=== PATIENT | female | born 1945 | race Caucasian/White ===

== ENCOUNTER 2021-07-21 07:53 | Outpatient (REF) | payer MEDICARE, SELFPAY ==
--- NOTE | ~2021-07-21 | US_ITS ---
EXAMINATION: US ABDOMEN COMPLETE CLINICAL INFORMATION: Biliary cirrhosis. COMPARISON: Ultrasound abdomen 12/22/2017 and 01/11/2015. Ultrasound abdomen from 07/18/2013 as well as multiple other older exams also available. TECHNIQUE: Real-time imaging of the abdominal viscera. FINDINGS: PANCREAS: Normal. ABDOMINAL AORTA: Atherosclerotic changes present in the aorta. INFERIOR VENA CAVA: Visualized portions are normal. LIVER: The liver is normal in size. The liver contour is normal. Parenchymal echogenicity is mildly increased suggesting underlying liver disease, similar to that noted previously. In the right lobe of the liver, there is an echogenic 3.9 x 4.2 x 4.8 cm liver mass which has increased in size since 2012 when it measured 1.2 cm and in 2014 when it measured 1.5 cm and in 2017 when it measured 2.0 cm. This is most likely a cavernous hemangioma, but this could be proven with abdominal MRI. Given its size, a tagged red cell nuclear study would also be of value. There is no intrahepatic biliary duct dilatation seen. GALLBLADDER: The gallbladder is physiologically distended. Multiple mobile gallstones are present. No evidence of gallbladder wall thickening or pericholecystic fluid. COMMON BILE DUCT: Normal in caliber measuring 0.4 cm in diameter. RIGHT KIDNEY: Normal. No hydronephrosis. No renal calculi or focal parenchymal lesions. The kidney measures 10.9 cm in maximum dimension. LEFT KIDNEY: Normal. No hydronephrosis. No renal calculi or focal parenchymal lesions. The kidney measures 9.7 cm in maximum dimension. SPLEEN: Splenic calcifications seen previously are not seen on the current study where the spleen is unremarkable. The spleen measures 8.2 cm in maximum dimension. FREE FLUID: None. US/US abdomen complete IMPRESSION: Echogenic mass in the right lobe of the liver has increased in size from 1.5 cm in 2014 to 4.8 cm on the current study. Although this may be a cavernous hemangioma, this could be proven with abdominal MRI or tagged red cell study as described above.
[2021-07-21 08:47] LABS: MANUAL DIFF FLAG NO
[2021-07-21 09:01] LABS: Basophils Percent Auto 0.9 % (0-2); Eosinophils Absolute Auto 0.2 X10*3/uL (0.0-0.4); Eosinophils Percent Auto 3.6 % (0-4); Hematocrit 40.5 % (37.0-47.0); Hemoglobin 13.7 g/dl (12.0-16.0); Imm Gran Abs Auto 0.01 X10*3/uL (0.00-0.03); Imm Gran Pct Auto 0.2 % (0.0-0.4); Lymphocytes Absolute Auto 1.2 X10*3/uL (1.2-4.9); Lymphocytes Percent Auto 27.1 % (20-40); Mean Corpuscular HGB Conc 33.8 g/dl (31.0-35.0); Mean Corpuscular Hemoglobin 32.3 pg (27.0-33.0); Mean Corpuscular Volume 95.5 fL (80.0-98.0); Monocytes Absolute Auto 0.7 X10*3/uL (0.1-1.2); Monocytes Percent Auto 14.7 % (2-11); Neutrophils Absolute Auto 2.4 x10*3/uL (2.0-8.3); Neutrophils Percent Auto 53.5 % (45-73); Platelet Count 235 X10*3/uL (160-400); Red Blood Count 4.24 X10*6/uL (4.20-5.50); Red Cell Distribution Width 12.7 % (11.0-16.0); White Blood Count 4.5 X10*3/uL (4.8-10.8)
[2021-07-21 09:26] LABS: Alanine Aminotransferase 29 U/L (0-31); Albumin Level 4.1 g/dL (3.5-5.0); Alkaline Phosphatase 132 U/L (39-117); Anion Gap 13 (12-20); Aspartate Amino Transferase 27 U/L (5-31); Bilirubin Direct 0.3 mg/dL (0.0-0.5); Blood Urea Nitrogen 7 mg/dL (9-16); Calcium 9.3 mg/dL (8.4-10.2); Carbon Dioxide 26 mmol/L (22-29); Chloride 101 mmol/L (96-108); Estimated Glomerular Filt Rate > 60; Glucose Random 94 mg/dL (60-115); Potassium 5.2 mmol/L (3.3-5.1); Sodium 135 mmol/L (135-145); Total Protein 6.7 g/dL (6.5-8.0)
[2021-07-21 09:30] LABS: Prothrombin Time 11.5 SEC (9.9-13.0)
== END 2021-07-21 07:54 | disposition home or self-care (01) ==
LOC: HO.US 07:53
PROVIDERS: PCP Nurse Practitioner Adult Health; Visit Provider Internal Medicine Gastroenterology
DX: K74.3 Primary biliary cirrhosis (principal)
CPT/HCPCS: 36415; 76700; 80053; 82248; 85025; 85610

== ENCOUNTER 2021-07-25 10:53 | Outpatient (REF) | payer MEDICARE, SELFPAY ==
--- NOTE | ~2021-07-25 | MR_ITS ---
EXAMINATION: MR ABDOMEN WITHOUT AND WITH CONTRAST CLINICAL INFORMATION: Abnormal ultrasound of the liver. Unchanged. Hemangioma in the right lobe increased from 2014 COMPARISON: 07/21/2021 and earlier TECHNIQUE: MR abdomen was performed without and with use of 6 mL intravenous Gadavist gadolinium contrast. Postcontrast images are performed in multiphase dynamic sequences. Imaging was performed in 3 planes. FINDINGS: LUNG BASES: The visualized lung bases are unremarkable. LIVER, GALLBLADDER, AND BILIARY TREE: Liver is normal in size with a smooth contour. There is patchy heterogeneous signal loss on opposed phase gradient echo T1-weighted images consistent with mild to moderate hepatic steatosis. This likely accounts for the larger area of altered echogenicity seen on prior ultrasound. There are 2 homogeneous well-circumscribed T2 bright nonenhancing hepatic cysts, a 7 mm cyst in the right lobe at the dome and a 5 mm cyst at the junction of the left and right lobes of the liver near the dome. Lastly, along the medial aspect of segment 7 there is a well-circumscribed 1.3 cm hyperintense T2, initially nonenhancing hemangioma with progressive arterial phase enhancement. There are gallstones in the fundus of the gallbladder. No gallbladder wall thickening or pericholecystic fluid. PANCREAS: Unremarkable. SPLEEN: Normal. ADRENAL GLANDS: Normal. KIDNEYS AND URETERS: The kidneys are normal in size, shape, and enhance symmetrically. No hydronephrosis. No perinephric stranding. GASTROINTESTINAL TRACT: No bowel obstruction. No ascites or fluid collection. ABDOMINAL WALL: No significant hernia is appreciated. LYMPH NODES: No lymphadenopathy. VASCULAR: Normal caliber aorta. Portal veins enhance normally. OSSEOUS STRUCTURES: Marrow signal normal. MR/MR abdomen wo/w con IMPRESSION: No suspicious or concerning liver lesion is seen. There is patchy heterogeneous mild to moderate hepatic steatosis which likely accounts for the altered echogenicity seen on prior ultrasound. In addition, there is a 1.3 cm hemangioma along the medial aspect of segment 7 and 2 subcentimeter simple hepatic cysts. No imaging follow-up recommended for the hemangioma or cysts.
== END 2021-07-25 10:54 | disposition home or self-care (01) ==
LOC: HO.MRI 10:53
PROVIDERS: PCP Nurse Practitioner Adult Health; Visit Provider Internal Medicine Gastroenterology
DX: R93.2 Abnormal findings on diagnostic imaging of liver and biliary tract (principal)
CPT/HCPCS: 74183; A9585

== ENCOUNTER 2023-02-03 09:48 | Outpatient (REF) | payer MEDICARE, SELFPAY ==
[2023-02-03 10:57] LABS: Hematocrit 41.4 % (37.0-47.0); Hemoglobin 14.2 g/dl (12.0-16.0); Mean Corpuscular HGB Conc 34.3 g/dl (31.0-35.0); Mean Corpuscular Hemoglobin 33.6 pg (27.0-33.0); Mean Corpuscular Volume 97.9 fL (80.0-98.0); Mean Platelet Volume 9.4 fL (9.4-12.3); NRBC Pct Auto 0.4 /100WBC (0.0-0.2); Platelet Count 203 X10*3/uL (160-400); Red Blood Count 4.23 X10*6/uL (4.20-5.50); Red Cell Distribution Width 12.6 % (11.0-16.0); White Blood Count 4.6 X10*3/uL (4.8-10.8)
[2023-02-03 11:14] LABS: INTERNATIONAL NORM RATIO 0.9 (0.9-1.1); Prothrombin Time 10.4 SEC (10.0-13.1)
[2023-02-03 12:04] LABS: Alanine Aminotransferase 31 U/L (0-31); Albumin Level 3.7 g/dL (3.5-5.0); Alkaline Phosphatase 126 U/L (39-117); Aspartate Amino Transferase 37 U/L (5-31); Bilirubin Direct 0.5 mg/dL (0.0-0.5); Bilirubin Total 1.6 mg/dL (0.0-1.0); Total Protein 6.5 g/dL (6.5-8.0)
[2023-02-03 12:22] LABS: TSH reflex Free T4 0.75 uIU/mL (0.32-4.0)
== END 2023-02-03 09:49 | disposition home or self-care (01) ==
LOC: HO.10HDL 09:48
PROVIDERS: Visit Provider Internal Medicine Gastroenterology
DX: K74.3 Primary biliary cirrhosis (principal); R53.83 Other fatigue
CPT/HCPCS: 36415; 80076; 84443; 85027; 85610

== ENCOUNTER 2023-02-17 08:11 | Outpatient (REF) | payer MEDICARE, SELFPAY ==
--- NOTE | ~2023-02-17 | US_ITS ---
EXAMINATION: US ABDOMEN COMPLETE CLINICAL INFORMATION: Primary biliary cirrhosis. COMPARISON: MRI abdomen 07/25/2021. Ultrasound abdomen complete 07/21/2021 and 12/22/2017. TECHNIQUE: Real-time imaging of the abdominal viscera. Technically limited study secondary to bowel gas and rib shadow. FINDINGS: PANCREAS: Limited visualization. ABDOMINAL AORTA: Limited visualization. Imaged portions of mid and distal abdominal aorta are nonaneurysmal. INFERIOR VENA CAVA: Visualized portions are normal. LIVER: Diffuse increase in echogenicity of the liver is characteristic of primary hepatocellular disease, possibly due to hepatic steatosis and further limits visualization. GALLBLADDER: Multiple gallstones. Gallbladder wall thickening of 3 mm. COMMON BILE DUCT: Limited visualization. The structure felt to possibly represent the common bile duct measures 0.3 cm in diameter. RIGHT KIDNEY: No hydronephrosis. No renal calculi. Renal cortical thickness is normal. Limited visualization. The kidney measures 9.8 cm in maximum dimension. LEFT KIDNEY: No hydronephrosis. No renal calculi. Renal cortical thickness is normal. Limited visualization. The kidney measures 9.1 cm in maximum dimension. SPLEEN: Normal. The spleen measures 8.6 cm in maximum dimension. FREE FLUID: None. US/US abdomen complete IMPRESSION: 1. Cholelithiasis. 2. Diffuse increase in echogenicity of the liver is characteristic of primary hepatocellular disease, possibly due to hepatic steatosis and further limits visualization. 3. Previously identified right hepatic lesion not visualized today, however, visualization is severely limited. CT scan or MRI should be considered for better visualization.
== END 2023-02-17 08:12 | disposition home or self-care (01) ==
LOC: HO.US 08:11
PROVIDERS: PCP Nurse Practitioner Adult Health; Visit Provider Internal Medicine Gastroenterology
DX: K74.3 Primary biliary cirrhosis (principal)
CPT/HCPCS: 76700

== ENCOUNTER 2025-07-02 06:10 | Outpatient (REF) | payer MEDICARE, SELFPAY ==
--- OUTSIDE RECORDS SUMMARY | 2025-06-27 23:59 | XMS_ITS | Continuity of Care Document ---
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 Name Role Phone Lynette Martinez Primary Care P jose g Encounter [facility] Date(s): 05/28/25 - 06/27/[address] [address]- Encounter Type: Triage Allergies, Adverse Reactions, Alerts Substance Criticality Severity Reaction Reaction Severity Status codeine light headedness Act ana paula Iophen NR 1 Unable to assess criticality Persistent Severe dizziness Active codeine-guaiFEN esin itchy Active 1allergic to IOPHEN-NR Liquid Immunizations Given and Recorded Vaccine Date Status Refusal Reason influenza virus vaccine, inactivated 05/15/25 Give n influenza virus vaccine, inactivated 1 06/15/24 Gi roselyn influenza virus vaccine, inactivated 04/30/22 Timi rded influenza virus vaccine, inactivated 05/19/21 Timi rded influenza virus vaccine, inactivated 06/05/20 Timi rded influenza virus vaccine, inactivated 06/12/11 Give n tetanus-diphtheria toxoids (Td) 2 06/15/24 Given [id number] 12y+ bivalent booster vax 06/12/22 Recorded SARS-CoV-2 mRNA (zyjckhg-yate-erogg) vax 11/25/21 Recorded SARS-CoV-2 (COVID-19) mRNA BNT-162b2 vac 05/12/21 Recorded SARS-CoV-2 (COVID-19) mRNA BNT-162b2 vac 10/19/20 Recorded SARS-CoV-2 (COVID-19) mRNA BNT-162b2 vac 09/28/20 Recorded pneumococcal 23-valent vaccine 3 08/04/12 Given 1Result Comment: [facility]# [id number] 2Result Comment: [facility]# [id number] 3Admin Note: administered by Aleta Medications acetaminophen 325 mg oral tablet 975 mg, By Mouth, Every 8 hours, Refills 0, Maintenance, 08/23/24 8:46:00 AM EST, Partial fill upon patient request if the prescription is for a schedule II opioid drug. Start Date: 08/23/24 Status: Ordered Medication Dispense Status: Completed Total Allowed Fills: 1 Fills Dispensed: 0 dapagliflozin 10 mg oral tablet 1 tablet = 10 mg, By Mouth, Daily, # 90 tablet, 3 Refills, Maintenance, 05/09/25 2:08:00 PM EDT, Tablet, [facility]/pharmacy #[id number], Partial fill upon patient request if the prescription is for a schedule II opioid drug., 168, cm, 04/12/25 10:47:00 EDT, Height, 68.2, kg, 02/23/25 1:20:00 EDT, Dry Weight Start Date: 05/09/25 Stop Date: 09/06/25 Status: Ordered Medication Dispense Status: Completed Quantity: 90.0 Unit: tablet Total Allowed Fills: 4 Fills Dispensed: 0 Eliquis 5 mg oral tablet 1 tablet, By Mouth, 2 times a day, # 60 tablet, 3 Refills, Maintenance, 07/28/24 4:57:00 PM EST, [facility]/pharmacy #[id number], 168, cm, 07/19/24 15:37:00 EST, Height, 67, kg, 07/01/24 12:02:00 EST, Dry Weight Start Date: 07/28/24 Status: Ordered Medication Dispense Status: Completed Quantity: 60.0 Unit: tablet Total Allowed Fills: 4 Fills Dispensed: 0 Lasix 40 mg oral tablet 40 mg, 1, tablet, By Mouth, 2 times a day, Refills 0, Maintenance, 05/13/25 6:56:00 PM EDT, Partial fill upon patient request if the prescription is for a schedule II opioid drug. Start Date: 05/13/25 Status: Ordered Medication Dispense Status: Completed Total Allowed Fills: 1 Fills Dispensed: 0 metoprolol 25 mg oral tablet, extended release 25 mg, 1, tablet, By Mouth, Daily, # 30 tablet, Refills 0, Tot. Refills 0, Maintenance, 06/04/25 4:08:00 PM EDT, Route to Pharmacy Electronically, [facility]/pharmacy #[id number], Partial fill upon patient request if the prescription is for a schedule II opioid drug., 169, cm, 06/04/25 13:04:00 EDT, Height, 66.7, kg, 05/14/25 10:52:00 EDT, Dry Weight Start Date: 06/04/25 Status: Ordered Medication Dispense Status: Completed Quantity: 30.0 Unit: tablet Total Allowed Fills: 1 Fills Dispensed: 0 mirtazapine 15 mg oral tablet 1 tablet = 15 mg, By Mouth, Daily at bedtime, # 90 tablet, 0 Refills, Maintenance, 06/04/25 1:10:00PM EDT, Tablet, [facility]/pharmacy #[id number], Partial fill upon patient request if the prescription is for a schedule II opioid drug., 169, cm, 06/04/25 13:04:00 EDT, Height, 66.7, kg, 05/14/25 10:52:00 EDT, Dry Weight Start Date: 06/04/25 Stop Date: 09/02/25 Status: Ordered Medication Dispense Status: Completed Quantity: 90.0 Unit: tablet Total Allowed Fills: 1 Fills Dispensed: 0 omeprazole 40 mg oral enteric coated capsule 1 capsule = 40 mg, By Mouth, Daily, # 90 capsule, 1 Refills, Maintenance, 04/12/25 11:03:00 AM EDT, Suspension, [facility]/pharmacy #[id number], Partial fill upon patient request if the prescription is for a schedule II opioid drug., 168, cm, 04/12/25 10:47:00 EDT, Height, 68.2, kg, 02/23/25 1:20:00 EDT, Dry Weight Start Date: 04/12/25 Status: Ordered Medication Dispense Status: Completed Quantity: 90.0 Unit: capsule Total Allowed Fills: 2 Fills Dispensed: 0 PreserVision AREDS 2 oral capsule See Instructions, 0 Refills, Maintenance, 05/10/25 10:57:00 AM EDT, Partial fill upon patient request if the prescription is for a schedule II opioid drug. Start Date: 05/10/25 Status: Ordered Medication Dispense Status: Completed Total Allowed Fills: 1 Fills Dispensed: 0 PreserVision AREDS 2 oral capsule 1 capsule, By Mouth, 2 times a day, # 60 capsule, 0 Refills, Maintenance, 06/15/25 11:35:00 PM EDT,Capsule, Partial fill upon patient request if the prescription is for a schedule II opioid drug. Start Date: 06/15/25 Status: Ordered Medication Dispense Status: Completed Quantity: 60.0 Unit: capsule Total Allowed Fills: 1 Fills Dispensed: 0 sertraline 100 mg oral tablet 1 tablet = 100 mg, By Mouth, Daily, # 90 tablet, 1 Refills, Maintenance, 04/23/25 4:56:00 PM EDT, Tablet, [facility]/pharmacy #[id number], Partial fill upon patient request if the prescription is for a schedule II opioid drug., 168, cm, 04/12/25 10:47:00 EDT, Height, 68.2, kg, 02/23/25 1:20:00 EDT, Dry Weight Start Date: 04/23/25 Status: Ordered Medication Dispense Status: Completed Quantity: 90.0 Unit: tablet Total Allowed Fills: 2 Fills Dispensed: 0 spironolactone 25 mg oral tablet 1, tablet, By Mouth, Daily, # 90 tablet, Refills 1, Maintenance, 04/06/25 7:33:00 AM EDT, Route to Pharmacy Electronically, [id number], 168, cm, 04/06/25 0:26:00 EDT, Height, 68.2, kg, 02/23/25 1:20:00 EDT, Dry Weight Start Date: 04/06/25 Status: Ordered Medication Dispense Status: Completed Quantity: 90.0 Unit: tablet Total Allowed Fills: 1 Fills Dispensed: 0 ursodiol 500 mg oral tablet 1 tablet, By Mouth, 2 times a day, 0 Refills, Maintenance, 04/23/14 3:44:27 AM EDT, Tablet Start Date: 04/23/14 Status: Ordered Medication Dispense Status: Completed Total Allowed Fills: 1 Fills Dispensed: 0 Problem List Condition Confirmation Course Effective Dates Status H ealth Status Informant Acute peptic ulcer with hemorrhage but without obstruction Confirmed Active Alzheimer dementia Confirmed Active Pacemaker Confirmed Active Cirrhosis of Liver primary biliary Confirmed Active CHF (congestive heart failure) Confirmed Active Macular degeneration Confirmed Active Depression Confirmed Active Dyspnea Confirmed Active Essential (primary) hypertension Confirmed Active Alcohol abuse Confirmed Active Hyperlipidemia Confirmed Active Hypokalemia Confirmed Active Patient has healthcare proxy 1 Confirmed Active Osteoarthritis of knee Confirmed Active AF (paroxysmal atrial fibrillation) Confirmed Active Pleural effusion Confirmed Active Purpura Confirmed Active SCC (squamous cell carcinoma), face Confirmed Active Left leg swelling Confirmed Active Unintentional weight loss Confirmed Active 1[facility] Social History Social History Type Response Smoking Status Never (less than 100 in lifetime); Tobacco user in household: Yes; Other: In the past ex and mother used to smoke in house.; entered on: 03/15/20 Sexual Orientation Self described orien tation: ; Straight or heterosexual Sex Sex Representation Female (finding) Patient Care team information Care Team Personnel Name: Joan Zambrano RN Position: [facility] RN Member Role: Primary Care Nurse Name: Pilar Marques RN Position: [facility] RN Member Role: Primary Care Nurse Name: Mark Anthony Díaz RN Position: [facility] RN Member Role: Primary Care Nurse Name: Meliza Box RN Position: [facility] RN Member Role: Primary Care Nurse Name: Galindo Jade RN Position: [facility] RN Member Role: Primary Care Nurse Name: Eloise Sadler RN Position: [facility] RN Member Role: Primary Care Nurse Name: Delfino Franz RN Position: [facility] RN Member Role: Primary Care Nurse Name: Nessa Tom RN Position: [facility] RN Member Role: Primary Care Nurse Name: Lili Flores RN Position: [facility] RN Member Role: Primary Care Nurse Name: Gwyn Gallegos RN Position: [facility] RN Member Role: Primary Care Nurse Name: Santa Waller RN Position: [facility] RN Member Role: Primary Care Nurse Name: Yashira Arnold Position: [facility] [place] Product Representative Member Role: Filter Tank Operator Name: Karli Wilson RN Position: [facility] RN Member Role: Primary Care Nurse Name: Gennaro Oliver RN Position: [facility] SN RN Member Role: Primary Care Nurse Name: Chela Kidd RN Position: [facility] RN Member Role: Primary Care Nurse Name: Vivi Gil RN Position: [facility] RN Member Role: Primary Care Nurse Name: Lynette Martinez Position: [facility] PCO Associate Professional Member Role: PCP Address: [address] [place] [address]. [address] [place], [place] [address] Telecom: Name: Dionne Bhatt RN Position: [facility] RN Member Role: Primary Care Nurse Name: Monalisa Ragsdale RN Position: [facility] RN Member Role: Primary Care Nurse Name: Delmy Taveras RN Position: [facility] RN Member Role: Primary Care Nurse Name: Sonja Ng LPN Position: [facility] RN Member Role: Primary Care Nurse Care Team Related Persons Name: PARAS LAKHANI Name: BLUE BRIONES Name: CARIE SCHAEFER Insurance Providers Guarantor name: RODDY LESVIACount includes the [facility] Plan Information #: 1 Payer: [employer] AD[employer] HMO Payer Identifier: TONY Member Number: [id number] Group Number: [id number] Subscriber Identifier: TONY Relationship to Subscriber: self Coverage Type: Medicare HMO Coverage Verification Date: Telecom: NA Address: NA
--- OUTSIDE RECORDS SUMMARY | 2025-06-29 12:00 | XMS_ITS | Continuity of Care Document ---
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 Name Role Phone Lynette Martinez Primary Care Reginaldo araiza [id number] Date(s): 06/15/25 - 06/29/[address] [address]- Encounter Diagnosis Anemia(Final) - 06/15/25 Hypoxia(Final) - 06/22/25 CHF exacerbation(Final) - 06/22/25 Discharge Disposition: A-D/C Home Attending Physician: Greta Jean-Baptiste MD Admitting Physician: Christoph Mendez MD Referring Physician: Not on Staff, Referring MD Encounter Type: Disch IP Allergies, Adverse Reactions, Alerts Substance Criticality Severity Reaction Reaction Severity Status codeine light headedness Act ana paula codeine-guaiFEN esin itchy Active Iophen NR 1 Unable to assess criticality Persistent Severe dizziness Active 1allergic to IOPHEN-NR Liquid Functional Status Functional Status Assessment Assessment Assessment Component Result Effecti ve Date Total Falls Risk Score 18 06/27 Functional Status Assessment Assessment Assessment Component Result Effecti ve Date Total Falls Risk Score 30 06/28 Functional Status Assessment Assessment Assessment Component Result Effecti ve Date Tino scale total score 17 07/10 Functional Status Assessment Assessment Assessment Component Result Effecti ve Date Tino scale total score 17 08/09 Functional Status Assessment Assessment Assessment Component Result Effecti ve Date Total score [AUDIT] 1 06/16/25 Functional Status Assessment Assessment Assessment Component Result Effecti ve Date Unspecifed Functional Status Assessment Skin abnormality typ e (observable entity) Surgical incision 06/28/25 Functional Status Assessment Assessment Assessment Component Result Effecti ve Date Unspecifed Functional Status Assessment Skin abnormality typ e (observable entity) Surgical incision 06/28/25 Functional Status Assessment Assessment Assessment Component Result Effecti ve Date Unspecifed Functional Status Assessment Skin abnormality typ e (observable entity) Erythema 06/28/25 Functional Status Assessment Assessment Assessment Component Result Effecti ve Date Total Falls Risk Score 25 06/28 Functional Status Assessment Assessment Assessment Component Result Effecti ve Date Tino scale total score 17 Immunizations Given and Recorded Vaccine Date Status Refusal Reason influenza virus vaccine, inactivated 05/15/25 Give n influenza virus vaccine, inactivated 1 06/15/24 Gi roselyn influenza virus vaccine, inactivated 04/30/22 Timi rded influenza virus vaccine, inactivated 05/19/21 Timi rded influenza virus vaccine, inactivated 06/05/20 Timi rded influenza virus vaccine, inactivated 06/12/11 Give n tetanus-diphtheria toxoids (Td) 2 06/15/24 Given [id number] 12y+ bivalent booster vax 06/12/22 Recorded SARS-CoV-2 mRNA ([id number]) vax 11/25/21 Recorded SARS-CoV-2 (COVID-19) mRNA BNT-162b2 vac 05/12/21 Recorded SARS-CoV-2 (COVID-19) mRNA BNT-162b2 vac 10/19/20 Recorded SARS-CoV-2 (COVID-19) mRNA BNT-162b2 vac 09/28/20 Recorded pneumococcal 23-valent vaccine 3 08/04/12 Given 1Result Comment: [facility]# [id number] 2Result Comment: [facility]# [id number] 3Admin Note: administered by Aleta Medications acetaminophen 325 mg oral tablet 975 mg, By Mouth, Every 8 hours, Refills 0, Maintenance, 08/23/24 8:46:00 AM EST, Partial fill upon patient request if the prescription is for a schedule II opioid drug. Start Date: 08/23/24 Status: Ordered Medication Dispense Status: Completed Total Allowed Fills: 1 Fills Dispensed: 0 cephalexin monohydrate 500 mg oral capsule = 500 mg, By Mouth, Every 6 hours, for 3 days, # 12 tablet, 0 Refills, Acute 07/02/25 10:30:00 AM EST, 06/29/25 10:30:00 AM EST, Capsule, Partial fill upon patient request if the prescription is for a schedule II opioid drug. Start Date: 06/29/25 Stop Date: 07/02/25 Status: Ordered Medication Dispense Status: Completed Quantity: 12.0 Unit: tablet Total Allowed Fills: 1 Fills Dispensed: 0 dapagliflozin 10 mg oral tablet 1 tablet = 10 mg, By Mouth, Daily, # 90 tablet, 3 Refills, Maintenance, 05/09/25 2:08:00 PM EDT, Tablet, [facility]/pharmacy #[id number], Partial fill upon patient request if [...] 3 Refills, Maintenance, 07/28/24 4:57:00 PM EST, [facility]/pharmacy #[id number], 168, cm, 07/19/24 15:37:00 EST, Height, 67, kg, 07/01/24 12:02:00 EST, Dry Weight Start Date: 07/28/24 Status: Ordered Medication Dispense Status: Completed Quantity: 60.0 Unit: tablet Total Allowed Fills: 4 Fills Dispensed: 0 folic acid 1 mg oral tablet 1 mg, By Mouth, Daily, Refills 0, Maintenance, 06/29/25 10:38:00 AM EST, Partial fill upon patient request if the prescription is for a schedule II opioid drug. Start Date: 06/29/25 Status: Ordered Medication Dispense Status: Completed Total Allowed Fills: 1 Fills Dispensed: 0 metoprolol 25 mg oral tablet, extended release 25 mg, XL Tablet, By Mouth, 06/29/25 9:00:00 AM EST Start Date: 06/29/25 Stop Date: 06/29/25 Status: Completed Medication Dispense Status: Completed Total Allowed Fills: 1 Fills Dispensed: 0 metoprolol 25 mg oral tablet, extended release 25 mg, 1, tablet, By Mouth, Daily, # 30 tablet, Refills 0, Tot. Refills 0, Maintenance, 06/04/25 4:08:00 PM EDT, Route to Pharmacy Electronically, [facility]/pharmacy #[id number], Partial fill upon patient request if [...] 0 Refills, Maintenance, 06/04/25 1:10:00PM EDT, Tablet, [facility]/pharmacy #[id number], Partial fill upon patient request if [...] 1 capsule = 40 mg, By Mouth, 2 times a day, # 60 capsule, 1 Refills, Maintenance, 06/29/25 10:30:00AM EST, Suspension, Partial fill upon patient request if the prescription is for a schedule II opioid drug. Start Date: 06/29/25 Stop Date: 08/28/25 Status: Ordered Medication Dispense Status: Completed Quantity: 60.0 Unit: capsule Total Allowed Fills: 2 Fills [...] Total Allowed Fills: 1 Fills Dispensed: 0 Pyridoxine Tablet 50 mg, By Mouth, Daily, Refills 0, Maintenance, 06/29/25 10:38:00 AM EST, Partial fill upon patientrequest if the prescription is for a schedule II opioid drug. Start Date: 06/29/25 Status: Ordered Medication Dispense Status: Completed Total Allowed Fills: 1 Fills Dispensed: 0 sertraline 100 mg oral tablet 1 tablet = 100 mg, By Mouth, Daily, # 90 tablet, 1 Refills, Maintenance, 04/23/25 4:56:00 PM EDT, Tablet, [facility]/pharmacy #[id number], Partial fill upon patient request if [...] 7:33:00 AM EDT, Route to Pharmacy Electronically, [id number], 168, cm, 04/06/25 0:26:00 EDT, Height, 68.2, kg, 02/23/25 1:20:00 EDT, Dry Weight Start Date: 04/06/25 Status: Ordered Medication Dispense Status: Completed Quantity: 90.0 Unit: tablet Total Allowed Fills: 1 Fills Dispensed: 0 thiamine 100 mg oral tablet 100 mg, By Mouth, 2 times a day, Refills 0, Maintenance, 06/29/25 10:38:00 AM EST, Partial fill upon patient request if the prescription is for a schedule II opioid drug. Start Date: 06/29/25 Status: Ordered Medication Dispense Status: Completed Total Allowed Fills: 1 Fills Dispensed: 0 torsemide 20 mg oral tablet 1 tablet = 20 mg, By Mouth, Daily, 0 Refills, Maintenance, 06/29/25 10:32:00 AM EST, Tablet, Partial fill upon patient request if the prescription is for a schedule II opioid drug. Start Date: 06/29/25 Status: Ordered Medication Dispense Status: Completed Total Allowed Fills: 1 Fills Dispensed: 0 ursodiol 500 mg oral tablet 1 tablet, By Mouth, 2 times a day, 0 Refills, Maintenance, 04/23/14 3:44:27 AM EDT, Tablet Start Date: 04/23/14 Status: Ordered Medication Dispense Status: Completed Total Allowed Fills: 1 Fills Dispensed: 0 Mental Status Mental Status Assessment Assessment Assessment Component Result Effecti ve Date Mylene coma score total 14 Mental Status Assessment Assessment Assessment Component Result Effecti ve Date Mylene coma score total 14 06/17/25 Mental Status Assessment Assessment Assessment Component Result Effecti ve Date Mylene coma score total 14 06/23/25 Problem List Condition Confirmation Course Effective Dates [...] loss Confirmed Active 1[facility] Results Radiology Reports * Exam Date Time Procedure Performing Provider Status 06/23/25 8:04 AM Chest Portable Auth (Veri fied) Notes: (Chest Portable) Reason For Exam: Shortness of Breath RESULT: Chest Portable Chest Portable Reason: Shortness of Breath; Clinical Question(s): Atelectasis COMPARISON: Multiple priors, most recent comparison 06/17/2025. FINDINGS: LINES AND TUBES: Dual-lead left subclavian pacer/AICD wires are intact. LUNGS AND PLEURA: No interval change in LEFT pleural effusion. Decrease in RIGHT pleural effusion. No pneumothorax. Similar bilateral perihilar and diffuse interstitial opacities representing edema. HEART, MEDIASTINUM AND LAURYN: LEFT heart border partially obscured. Normal mediastinal and hilar contour. BONES AND SOFT TISSUES: No acute abnormality. IMPRESSION: Findings consistent with congestive heart failure. Unchanged LEFT pleural effusion, decreased RIGHTpleural effusion. WSN: [id number] Ordering Physician: Christoph Miller Dictated By: Pilar Araujo MD Dictated Date/Time: 06/23/25 10:49 a Reviewed By: Pilar Araujo MD Signed By: Pilar Araujo MD Signed Date/Time: 06/23/25 10:49 am Transcribed By: IWONA Transcribed Date/Time: 06/23/25 10:48 am * Exam Date Time Procedure Performing Provider Status 06/17/25 10:45 AM Chest 2 Views Frontal and Lat Auth (Verified) Notes: (Chest 2 Views Frontal and Lat) Reason For Exam: Shortness of Breath RESULT: Chest 2 Views Frontal and Lat Chest 2 Views Frontal and Lat COMPARISON: 06/15/2025 most recent INDICATION / CLINICAL QUESTION: Reason: Shortness of Breath; Clinical Question(s): Pleural Effusion FINDINGS: LINES AND TUBES: Dual-lead left subclavian pacer/AICD wires are intact. LUNGS AND PLEURA: Slightly increased pleural effusions, left larger than right. Increased interstitial edema pattern. No pneumothorax. HEART, MEDIASTINUM AND LAURYN: Partially obscured but grossly unchanged cardiomegaly. BONES AND SOFT TISSUES: No acute abnormality. IMPRESSION: Increased moderate effusions and interstitial edema consistent with CHF. WSN: [id number] Ordering Physician: Greta Jean-Baptiste Dictated By: Dominguez Vogel MD Dictated Date/Time: 06/17/25 3:37 pm Reviewed By: Dominguez Vogel MD Signed By: Dominguez Vogel MD Signed Date/Time: 06/17/25 3:37 pm Transcribed By: CSB Transcribed Date/Time: 06/17/25 3:35 pm * Exam Date Time Procedure Performing Provider Status 06/15/25 7:[address] Abdomen and Pelvi s W/O Contrast Auth (Verified) Notes: (CT Abdomen and Pelvis W/O Contrast) Reason For Exam: abdominal pain, diarrhea/melena;Other: RESULT: CT Abdomen and Pelvis W/O Contrast CT Abdomen and Pelvis W/O Contrast Reason: Other:; abdominal pain, diarrhea melena; Clinical Question(s): Other:; Order Comment: TECHNIQUE: Spiral CT through the abdomen and pelvis without IV contrast formatted in 3 planes. Thisstudy was performed without oral contrast. Weight- based protocol using automatic tube modulation was used to optimize exposure parameters. CTDIvol Body: 17.30 mGy, DLP Body: 858 mGy*cm. COMPARISON: 07/04/2024 FINDINGS: Clinical Informatics Specialist View Findings, Lines and Tubes: None. Visualized Chest: Bilateral lower lobe atelectasis. Small to moderate bilateral pleural effusions, both mildly increased in size from the previous examination. Dual-lead cardiac pacemaker. Normal cardiac size. No pericardial effusion. Diaphragm: Normal. Liver: Normal. Gallbladder: Cholelithiasis. Bile ducts: No biliary ductal dilation. Spleen: 2 calcified granulomata. Otherwise unremarkable. Pancreas: Normal. Adrenal glands: Normal. Kidneys and ureters: No hydronephrosis, stones, or noncontrast evidence of suspicious masses. Bladder: Normal. Reproductive organs: Calcified uterine fibroids. Adnexal regions are unremarkable. Stomach, small bowel, and large bowel: Normal. Appendix: No evidence of acute appendicitis. Peritoneum and retroperitoneum: No ascites or pneumoperitoneum. No omental or mesenteric lesions. Lymph nodes: No enlarged lymph nodes. Blood vessels: Normal. No aneurysm. Abdominal and pelvic wall: Unremarkable. Bones: Chronic compression fractures of T10 and L1, appearing similar to the radiographs of 03/30/2025. Degenerative changes elsewhere the lower thoracic spine and stable moderate loss of height of the L4-5 intervertebral disc. IMPRESSION: No acute abnormality in the abdomen and pelvis. Cholelithiasis. Multiple calcified uterine fibroids. Stable degenerative changes in the thoracic and lumbar spine with chronic compression fractures of T10 and L1 and diminished height of the L4-5 intervertebral disc. Bibasilar atelectasis. Small to moderate bilateral pleural effusions, increased in size from 07/04/2024. WSN: [id number] Ordering Physician: Ashley Chandler Dictated By: Silas Lopes MD Dictated Date/Time: 06/15/25 9:32 pm Reviewed By: Silas Lopes MD Signed By: Silas Lopes MD Signed Date/Time: 06/15/25 9:32 pm Transcribed By: IWONA Transcribed Date/Time: 06/15/25 9:24 pm * Exam Date Time Procedure Performing Provider Status 06/15/25 12:52 PM Chest 2 Views Frontal and Lat Auth (Verified) Notes: (Chest 2 Views Frontal and Lat) Reason For Exam: Shortness of Breath RESULT: Chest 2 Views Frontal and Lat Chest 2 Views Frontal and Lat Hx of Present Illness: SOB; Reason: Shortness of Breath; Clinical Question(s): CHF COMPARISON: 05/18/2025 FINDINGS: LINES AND TUBES: Stable dual-lead left-sided pacemaker. LUNGS AND PLEURA: Vascular congestion with perihilar infiltrates suggesting pulmonary edema, new from prior exam. Small increased bilateral pleural effusions, left greater than right, with left lung base atelectasis. No pneumothorax. HEART, MEDIASTINUM AND LAURYN: Heart is normal in size. Normal mediastinal and hilar contour. BONES AND SOFT TISSUES: No acute abnormality. Right shoulder arthroplasty. IMPRESSION: CHF. WSN: [id number] Ordering Physician: Dhiraj Rashid Dictated By: Jair Caldwell MD Dictated Date/Time: 06/15/25 1:37 pm Reviewed By: Jair Caldwell MD Signed By: Jair Caldwell MD Signed Date/Time: 06/15/25 1:37 pm Transcribed By: IWONA Transcribed Date/Time: 06/15/25 1:36 pm Vital Signs Most recent to oldest [Reference Range]: 1 2 3 Height 168 cm (06/29/25 1:46 AM) 168 cm (06/28/25 7:28 PM) 168 cm (06/28/25 3:18 PM) Weight 68.3 kg (06/29/25 2:40 AM) 66.6 kg (06/28/25 6:10 AM) 68.0 kg (06/27/25 5:03 AM) Oxygen Saturation [94-100 %] 98 % (06/29/25 7:00 AM) 98 % (06/29/25 1:46 AM) 95 % (06/28/25 7:28 PM) Pulse Rate [55-90 bpm] 68 bpm (06/29/25 8:34 AM) 66 bpm (06/29/25 7:00 AM) 66 bpm (06/29/25 1:46 AM) Body Mass Index [18.5-24.99 kg/m2] 23.88 kg/m2 (06/25/25 1:22 PM) 23.42 kg/m2 (06/22/25 12:35 PM) 23.74 kg/m2 (06/19/25 2:11 AM) Blood Pressure [90-138/55-84 mm Hg] 103/47mm Hg (06/29/25 8:34 AM) 103/47mm Hg (06/29/25 7:00 AM) 109/42mm Hg (06/29/25 1:46 AM) Respiratory Rate [16-30 br/min] 18 br/min (06/29/25 7:00 AM) 18 br/min (06/29/25 1:46 AM) 18 br/min (06/28/25 7:28 PM) Temperature [96.8-100.4 DegF] 98.1 DegF (06/29/25 7:00 AM) 97.6 DegF (06/29/25 1:46 AM) 97.6 DegF (06/28/25 7:28 PM) Liters per Minute 1 L/min (06/29/25 7:00 AM) 1 L/min (06/29/25 1:46 AM) 1 L/min (06/28/25 7:28 PM) Mode of Delivery (Oxygen) Nasal cannula (06/29/25 7:00 AM) Nasal cannula (06/29/25 1:46 AM) Nasal cannula (06/28/25 7:28 PM) Blood pressure sites Arm, right (06/29/25 7:00 AM) Arm, right (06/29/25 1:46 AM) Arm, right (06/28/25 7:28 PM) Temperature Route Oral (06/29/25 7:00 AM) Oral (06/29/25 1:46 AM) Temporal (06/28/25 7:28 PM) Dry Weight 67.4 kg (06/25/25 1:22 PM) 69 kg (06/16/25 1:55 PM) Weight Obtained Via Bed scale (06/29/25 2:40 AM) Bed scale (06/28/25 6:10 AM) Bed scale (06/27/25 5:03 AM) Dry Weight Obtained Via Patient/family stated (06/25/25 1:22 PM) Social History Social History Type Response Smoking Status Never (less than 100 in lifetime); Tobacco user in household: Yes; Other: In the past ex and mother used to smoke in house.; entered on: 03/15/20 Sexual Orientation Self described orien tation: ; Straight or heterosexual Sex Sex Representation Female (finding) Status Not EGD Study * Event Display: GG EGD Please click on pdf link to open report Admission evaluation note * Candida Montes De Oca MD: MODIFY, PERFORM, MODIFY Event Display: Admission Note Authored Date: Patient: ??MARGARITA LAKHANI ? Age:??80 Years?Sex:??Female?:??1945?LOC:??[facility]?? Chief Complaint SOB History of Present Illness HPI: ?? Margarita is an 80-year-old woman with PMH significant for??PAF s/p??prior ablations and PPM,??HTN, diastolic??HF,??HLD, OA, primary biliary sclerosis, liver cirrhosis,??who??presents today for complaints of weakness and lightheadedness. Per daughter, Leah, who is a great historian, patient has b een having 1-2 wks of large volume diarrhea, only recently starting to resolve, but had a 6 large bowel movement this morning that was dark and tarry. Patient was weak and lightheaded and unable to get off the toilet, complaining of weak legs. She then began feeling short of breath later in the day, and was sent to the ED as well after PCP noted labs that visiting nurses have taken showed increased proBNP, weakness, and requirement of O2. Patient was requiring 3L NC on EMS. Denies headache, blurry vision, numbness or tingling, chest pain, abdominal pain. Patient also had recent emergency roomearlier in May for similar symptoms.? On admission to the ED patient had no leukocytosis, was anemic to 7.7, magnesium high at 2.7, alk phos increased to 123 with normal LFTs, total bilirubin high at 1.30, baseline creatinine around 1.01, now slightly increased to 1.13.?? proBNP increased to 9248 from 6779 at beginning of the month.?? Troponin mildly elevated to 25.?? No significant change noted on EKG.??Flu and respiratory panel negative.??Chest x-ray showing vascular congestion and small increased bilateral pleural effusions leftgreater than right. CT abdomen and pelvis without contrast obtained showing no acute pathology.? On exam, patient was AOx3 and reports that she has been feeling weaker generally over the last couple of months. She is able to report what has happened and corroborates above history. She feels short of breath periodically, but not necessarily associated with dyspnea. Review of Systems A full review of systems was completed and is otherwise negative except as mentioned in history of present illness. Physical Exam Vitals & Measurements T:??98.2?F?? TMIN:??97.9?F?? TMAX:??98.2?F?? HR:??82??(Peripheral)?? RR:??20?? BP:??132/77?? SpO2:??95%?? General: No acute distress. NC present HEENT: EOMI, mucous membranes moist. CV: RRR S1 S2 present. No peripheral edema, JVD present to 3 cm above sternal border. Respiratory: Lung sounds difficult to appreciate. Abdominal: Soft, nontender. No rebound tenderness. Bowel sounds noted all four quadrants. : No suprapubic tenderness. Neuro: A&OX3. Per family, patient can be forgetful, but was fully oriented during time of exam. Psych: Affect appropriate. Skin: Recent removal of SCC on scalp. Assessment/Plan Assessment:??Margarita is an 80-year-old woman with PMH significant for??PAF s/p??prior ablations and PPM,??HTN, diastolic??HF,??HLD, OA, primary biliary sclerosis, liver cirrhosis,??who??presents today for complaints of weakness and lightheadedness, now admitted and??treated??for acute hypoxic respiratory failure secondary to acute on chronic heart failure exacerbation.? Acute on chronic diastolic (congestive) heart failure (I50.33) ?Associated with??Acute hypoxic respiratory failure (J96.01),??AF (paroxysmal atrial fibrillation) (I48.0) ? Presented with shortness of breath after feeling weak. Unclear if there has been weight gain.??Has history of??atrial fibrillation as well as diastolic CHF (last echocardiogram??in April 2024??which revealed??normal LVEF/RVEF, moderate tricuspid valve regurgitation,??moderate pulmonary hypertension (estimated pressure??was in the 55 to 60 mmHg) and mild dilation of the??left atrium.Possibly etiology of acute exacerbation is that daughter reports patient has been having greater difficulty taking evening medications with worsening dementia. Family is working on setting up visiting nurse.?? - holding home Eliquis in the setting of possible GI bleed. Can restart if no other signs of GI bleed tomorrow and H+H stable - home Lasix 40 mg BID oral, will continue 40 IV BID tomorrow?? - repeat echo - can be completed outpatient if needed?? - pacemaker interrogation -- EP messaged, f/u? Anemia (D64.9):??Multiple episodes of reported dark tarry stools. Hgb 7.7 on admission. ?? - CBC daily?? - IV PPI, can be discontinued tomorrow if CBC stable tomorrow, and no further episodes of dark tarry stools - hold Eliquis? Alcohol use disorder (F10.90):??Patient reportedly drinks about 1 drink 4/7 days of the week. Last drink one day before admission Depression, unspecified depression type (F32.A): ??- Continue sertraline - home mirtazapine has not been started yet per family given patient's alcohol use. will hold at this time ?? Quality Measures Code:??Full Code, confirmed with patient, family??and per MOLSST DVT Prophylaxis:??Holding VTE prophylaxis at this time?? Diet:??Regular diet Ongoing Medical Necessity:??IV??diuretics ? Patient seen and discussed with attending physician,??MD Candida Delgadillo MD Internal Medicine Resident, PGY-1 [employer] ?? Problem List/Past Medical History Ongoing Acute peptic ulcer with hemorrhage but without obstruction AF (paroxysmal atrial fibrillation) Alcohol abuse Alzheimer dementia CHF (congestive heart failure) Cirrhosis of Liver primary biliary Depression Dyspnea Essential (primary) hypertension Hyperlipidemia Hypokalemia Left leg swelling Macular degeneration Osteoarthritis of knee Pacemaker Patient has healthcare proxy Pleural effusion Purpura SCC (squamous cell carcinoma), face Unintentional weight loss Procedure/Surgical History Upper gastrointestinal endoscopy including esophagus, stomach, and either the duodenum and/or jejunum as appropriate; diagnostic, with or without collection of specimen(s) by brushing or washing (separate procedure): 12/18/13 Upper gastrointestinal endoscopy including esophagus, stomach, and either the duodenum and/or jejunum as appropriate; diagnostic, with or without collection of specimen(s) by brushing or washing (separate procedure): 07/10/13 Knee replacement Appendectomy Ablation Medications Inpatient Acetaminophen(Acetaminophen Tablet), 650 mg, By Mouth, Every 4 hours, PRN dapagliflozin(Dapagliflozin Tablet), 10 mg, By Mouth, Daily Furosemide(Lasix Inj), 40 mg= 4 mL, IV Push Slowly, 2 times a day Metoprolol(metoprolol 25 mg oral tablet, extended release), 25 mg, By Mouth, Daily Multivitamin With Minerals(Multivit Therapeutic/Minerals Tablet), 1 tablet, By Mouth, Daily Pantoprazole(Pantoprazole Inj), 40 mg, IV Push Slowly, Daily Sertraline(sertraline 50 mg oral tablet), 100 mg, By Mouth, Daily Spironolactone(spironolactone 25 mg oral tablet), 25 mg, By Mouth, Daily Ursodiol(ursodiol 300 mg oral capsule), 300 mg, By Mouth, 2 times a day Home Acetaminophen(acetaminophen 325 mg oral tablet), 975 mg, By Mouth, Every 8 hours apixaban(Eliquis 5 mg oral tablet), 1 tablet, By Mouth, 2 times a day, 3 refills dapagliflozin(dapagliflozin 10 mg oral tablet), 10 mg= 1 tablet, By Mouth, Daily, 3 refills Furosemide(Lasix 40 mg oral tablet), 40 mg= 1 tablet, By Mouth, 2 times a day Metoprolol(metoprolol 25 mg oral tablet, extended release), 25 mg= 1 tablet, By Mouth, Daily Mirtazapine(mirtazapine 15 mg oral tablet), 15 mg= 1 tablet, By Mouth, Daily at bedtime Multivitamin With Minerals(PreserVision AREDS 2 oral capsule), See Instructions Multivitamin With Minerals(PreserVision AREDS 2 oral capsule), 1 capsule, By Mouth, 2 times a day Omeprazole(omeprazole 40 mg oral enteric coated capsule), 40 mg= 1 capsule, By Mouth, Daily, 1 refills Sertraline(sertraline 100 mg oral tablet), 100 mg= 1 tablet, By Mouth, Daily, 1 refills Spironolactone(spironolactone 25 mg oral tablet), 1 tablet, By Mouth, Daily Ursodiol(ursodiol 500 mg oral tablet), 1 tablet, By Mouth, 2 times a day Allergies Iophen NR (Persistent Severe)??dizziness codeine??light headedness codeine-guaiFENesin??itchy Social History Alcohol Use:Current Frequency:Daily Type:Wine Other:1/2 liter - 1.5 liters daily Has alcohol use interfered with work or home life:Yes Do you ever drink more than intended:No Has anyone been hurt or at risk by your drinking:No Binge drinking:No Electronic Cigarette/Vaping E-Cigarette Use:Never Employment/School Status:Retired Exercise Self assessment:Fair condition Regular exercise:Yes Times per week:1-2 times/week Home/Environment Living situation:Home/Independent Lives with:Alone Nutrition/Health Diet: (Don't list allergies here)Regular Sexual Gender identity:Female Self described orientation:Straight or heterosexual, Not listed Preferred pronoun:She/Her/Hers Substance Abuse Use:Never Tobacco Use:Never (less than 100 in lifetime) Tobacco user in household:Yes Other:In the past ex and mother used to smoke in house. Family History Cancer of lung: Brother. Congestive heart failure: Negative: Father. Heart disease: Mother and Father. Hyperlipidemia: Negative: Father. Hypertension: Negative: Father. Immunizations Vaccine Date Status influenza virus vaccine, inactivated 05/15/2025 Given tetanus-diphtheria toxoids (Td) 06/15/2024 Given Comments : [facility]# [id number] influenza virus vaccine, inactivated 06/15/2024 Given Comments : [facility]# [id number] influenza virus vaccine, inactivated - Not Given Comments : Patient Refuses [id number] 12y+ bivalent booster vax 06/12/2022 Recorded influenza virus vaccine, inactivated 04/30/2022 Recorded SARS-CoV-2 mRNA ([id number]) vax 11/25/2021 Recorded influenza virus vaccine, inactivated 05/19/2021 Recorded SARS-CoV-2 (COVID-19) mRNA BNT-162b2 vac 05/12/2021 Recorded SARS-CoV-2 (COVID-19) mRNA BNT-162b2 vac 10/19/2020 Recorded SARS-CoV-2 (COVID-19) mRNA BNT-162b2 vac 09/28/2020 Recorded influenza virus vaccine, inactivated 06/05/2020 Recorded pneumococcal 23-valent vaccine 08/04/2012 Given Comments : administered by [facility] influenza virus vaccine, inactivated 06/12/2011 Given Electronically Signed on 06/16/25 01:31 AM Candida Montes De Oca MD Electronically Signed on 06/16/25 01:35 AM Candida Montes De Oca MD Electronically Signed on 06/16/25 01:40 AM Candida Montes De Oca MD, MD, [facility]: PERFORM Event Display: Admission Note Authored Date: [id number] ??Attending Attestation: I have seen and evaluated this patient. ?? I have discussed the case and its management with the resident and agree with the findings and viviane documented in the resident's note. ??I ??will continue to provide care to this patient till 7 AMof the admitting date. ?? 80-year-old female with a past medical history of A-fib, dementia, heart failure, alcohol abuse, cirrhosis, hyperlipidemia, hypertension came with a complaint of lightheadedness. ??No history of any loss of consciousness. ??History of loose stools. ??No history of any fever, chills, nausea, vomiting. ??She was hypoxic required oxygen in the ED. ??Chest x-ray showed CHF. ??CT of the abdomen and pelvis is pending. ??Lab workup showed drop in hemoglobin from baseline 8-9 to 7.7. ??Troponin is 25.?? Will optimize the diuretic treatment as per renal function and volume status.?? History of dark-colored stool.?? For now we will hold Eliquis.?? Will continue with IV PPI.?? If there could be a dropin hemoglobin then will consider GI evaluation.?? If hemoglobin will be stable then will start her back on Eliquis.?? Drop in hemoglobin could be due to dilution because of CHF.?? Will get anemia workup. Electronically Signed on 06/16/25 02:39 AM Jerry LEE, Osvaldo EKG study * Event Display: ECG 12-Lead Authored Date: Please click on pdf link to open report * Event Display: ECG 12-Lead Authored Date: Ventricular Rate: 73 BPM Atrial Rate: 39 BPM QRS Duration: 124 ms Q-T Interval: 480 ms QTC Calculation(Bazett): 528 ms P Kinross: 148 degrees R Kinross: 55 degrees T Kinross: 13 degrees Ventricular-paced rhythm Abnormal ECG When compared with ECG of 05-Jun-2025 10:53, No significant change was found Confirmed by Mark Anthony Armstrong ([id number]) on 06/15/2025 1:47:44 PM [place]: Mark Anthony Armstrong Heart * Event Display: Echocardiogram - Complete Authored Date: [id number] Transthoracic Echocardiography Report (TTE) Patient Demographics Patient Name MARGARITA LAKHANI Date of Study 06/18/2025 Corporate Gender Female Facility Race .[id number] Ethnicity Date of 1945 Height: 66.14 inches Age 80 year(s) Weight: 148.15 pounds Accession Number [id number] BSA: 1.76 m2 Room Number [id number] BMI: 23.81 kg/m2 Referring Estiven Hernandes MD Interpreting Bryan Araiza Physician Physician W Reptile Farmer Juan R [facility] Christopher Indications Heart failure. Clinical History HEART FAILURE PAROXYSMAL AFIB Hypertension. Hyperlipidemia. Study Data Type of Study TTE procedure:Echo Complete-(Doppler, Colorflow) with Contrast. Study Date06/18/2025 Start Time: 11:03 AM Study [place] [facility] [place] Study Status: Bedside Patient Status: Routine Technical Quality: Fair Blood Pressure:126/62 mmHg EKG: Within normal limits HR: 74 bpm Contrast Medium: Definity. Amount - 2 ml Allergies - Codeine. - Other allergy:(lophen). - Dilaudid (hydromorphone). 2D Measurements LV Diastolic Dimension: 4.6 cm LV Systolic Dimension: 3 cm LV Septum Diastolic: 1 cm LV PW Diastolic: 1 cm AO Root Dimension: 3.3 cm LA Dimension: 4.1 cm LA ESV (BP):72 ml LVOT Stroke Volume: 63.43 ml LA ESV Index: 41 ml/m2 Stroke Volume Index36.04 ml/m2 LVOT: 2 cm Cardiac Index:2.66 l/min/m2 Ascending Aorta:3.3 cm Doppler Measurements AV Peak Velocity: 114 cm/s MV Peak E-Wave: 119 cm/s AV Peak Gradient: 5.2 mmHg AV Mean Gradient: 3 mmHg AV VTI:21.7 cm LVOT Peak Velocity: 104 cm/s LVOT VTI20.2 cm AV Area (Continuity):2.92 cm2 TR Velocity:302 cm/s TR Gradient:36.48 mmHg E' Septal Velocity: 6.74 cm/s E/Med E':[id number] Cardiac Anatomy Left Ventricle/Interventricular Septum The left ventricular size is normal. Left ventricular wall thickness is normal. The LV systolic function is normal . The left ventricular ejection fraction is 59 % by modified Simpsons biplane method. There is doppler evidence of increased filling pressures. Left Atrium/Interatrial Septum The left atrium is moderately dilated. Aortic Valve The aortic valve is trileaflet. The aortic valve appears mildly calcified. Mitral Valve The mitral valve appears mildly calcified. There is trace to mild mitral regurgitation. Aorta The ascending aorta and aortic root are normal in size. Right Ventricle The right ventricle is dilated. Right ventricular systolic function is normal. A pacer/ICD wire is seen in the right ventricle. Right Atrium The right atrium is dilated. Pulmonic Valve The pulmonic valve is poorly visualized. There is trace pulmonic regurgitation. Tricuspid Valve The tricuspid valve is poorly visualized. There is moderate tricuspid valve regurgitation. Pumonary Artery The pulmonary artery systolic pressure estimation is 50-55 mmHg. Venous Structures The inferior vena cava is dilated with poor inspiratory collapse consistent with elevated right atrial pressures. The central venous pressure estimation is 15 mmHg. Pericardium/Extracardiac There is no significant pericardial effusion. Summary The left ventricular size is normal. Left ventricular wall thickness is normal. The LV systolic function is normal . The left ventricular ejection fraction is 59 % by modified Simpsons biplane method. There is doppler evidence of increased filling pressures. The left atrium is moderately dilated. The aortic valve is trileaflet. The aortic valve appears mildly calcified. The mitral valve appears mildly calcified. There is trace to mild mitral regurgitation. The right ventricle is dilated. Right ventricular systolic function is normal. A pacer/ICD wire is seen in the right ventricle. Comparison No prior study available for comparison. There is no significant change. Signature * Event Display: Echocardiogram - Complete Authored Date: Procedure * Event Display: Cardiac Rhythm Strips Authored Date: * Event Display: Cardiac Rhythm Strips Authored Date: * Event Display: Cardiac Rhythm Strips Authored Date: Hospital Progress note * Ike Winkler RN: PERFORM, SIGN, VERIFY Event Display: Progress Note Hospital Authored Date: Patient: MARGARITA LAKHANI Age: 80 years Sex: Female : 1945 Associated Diagnoses: None Author: Ike Winkler RN Findings Problem Related to Alteration in Cardiac Function (new) : Alteration in Cardiac Function/new 06/28/2025 20:00 EST Alteration in Cardiac Status Related to Heart failure Goals & Outcomes, Cardiac Status Pt will resume/maintain adequate cardiac output, Pt will resume/maintain adequate hemodynamic status, Pt will resume/maintain adequate respiratory function, Pt will resume/maintain intact neuro function, Pt will maintain adequate GI/ function appropriate for pt, Pt will maintain adequate nutrition status Cardiac Interventions Implemented Assess/monitor cardiac status, Assess/monitor neuro status, Assess/monitor respiratory status, Call/Report variances in ECG to provider, Ensure adequate caloric intake, Monitor & document daily weight, Prep pt for treatments & procedures, Teach/encourage deep breath & cough exercises, Team conversation regarding appropriate level of care BH Goals/Interventions, Cardiac Yes Cardiac, Problem Start 06/18/2025 0:22 Reviewed Plan with, Cardiac Status Patient Patient Progression, Cardiac Status Patient progressing according to plan . Nursing Data Cardiac Data. : Cardiac Data. 06/28/2025 19:49 EST Heart Sounds S1, S2 Pacemaker Yes Cardiac Rhythm Paced threat monitoring analyst Yes Cardiovascular WNL except . Respiratory/Pulmonary Data. : Respiratory/Pulmonary Data. 06/28/2025 20:12 EST Respiratory Treatment(s) Cough and deep breathe 06/28/2025 19:49 EST Left Upper Lobe Breath Sounds Diminished Right Upper Lobe Breath Sounds Clear, Diminished Right Middle Lobe Breath Sounds Diminished Left Lower Lobe Breath Sounds Diminished Right Lower Lobe Breath Sounds Diminished, Clear Respiratory WNL except . Evaluation patient resrign during the shift with no complaints of pain, chest pain, nor shortness of breath. patient confused to place and time, guessing it was 2025, but pleasant and appropriate with conversations outside of orientation. Paced on tele, no edema noted. Patient LSD, getting up with one assist to the commode with no difficulty. Patient taking pills whole with berverage and otherwise uneventful night. Continuing to monitor cardiac status while admitted. Ecnouraging ambulation when possible. Currently awaiting insurance auth for D/C. . Electronically Signed on 06/29/25 05:21 AM Ike Winkler RN, RN, Rupinder: PERFORM, SIGN, VERIFY, MODIFY, SIGN Event Display: Progress Note Hospital Authored Date: [id number] Patient: MARGARITA LAKHANI Age: 80 years Sex: Female : 1945 Associated Diagnoses: None Author: Rupinder Weber RN Findings Problem Related to Alteration in Cardiac Function (new) : Alteration in Cardiac Function/new 06/28/2025 8:00 EST Alteration in Cardiac Status Related to Heart failure Goals & Outcomes, Cardiac Status Pt will resume/maintain adequate cardiac output, Pt will resume/maintain adequate hemodynamic status, Pt will resume/maintain adequate respiratory function, Pt will resume/maintain intact neuro function, Pt will maintain adequate GI/ function appropriate for pt, Pt will maintain adequate nutrition status Cardiac Interventions Implemented Assess/monitor cardiac status, Assess/monitor neuro status, Assess/monitor respiratory status, Assess for tolerance of IV infusions; verify rate & dose, Call/Report variances in ECG to provider, Document & Monitor O2 Sats; Administer O2 as ordered, Ensure adequate caloric intake, If no bowel movement in 3 days activate bowel regime, Monitor & document daily weight, Monitor anticoagulation values, Monitor ECG w/administration of antiarrhythmics (CO 13.420), Obtain 12 Lead ECG and CXR as ordered, Prep pt for treatments & procedures, Teach/encourage deep breath & cough exercises, Team conversation regarding appropriate level of care BH Goals/Interventions, Cardiac Yes Cardiac, Problem Start 06/18/2025 0:22 Reviewed Plan with, Cardiac Status Patient Patient Progression, Cardiac Status Patient progressing according to plan . Nursing Data Vital Signs : VITAL SIGNS SECTION 06/28/2025 8:17 EST Temperature 98.0 DegF Temperature Route Oral Pulse Rate 67 bpm Respiratory Rate 16 br/min Systolic Blood Pressure 117 mm Hg Diastolic Blood Pressure 51 mm Hg L Blood pressure sites Arm, right Mean Arterial Pressure 73 mm Hg Pulse Pressure 66 mm Hg Oxygen Saturation 99 % Liters per Minute 1 L/min Mode of Delivery (Oxygen) Nasal cannula . Narrative/Incidental See biophysical for full assessment. Patient A+O x3 this a.m., mentation waxes and wanes throughoutthe day. Patient weaned to 1 L NC. P.O. Torsemide held due to increase creat per MD Jean-Baptiste orders. p.o. antibiotics scheduled to begin tomorrow for UTI. Bed alarm on, call strong within reach. . Electronically Signed on 06/28/25 05:56 PM Rupinder Weber RN Electronically Signed on 06/28/25 05:59 PM Rupinder Weber RN * Estiven LEE, Greta: PERFORM Event Display: Progress Note Hospital Authored Date: Patient: ??MARGARITA LAKHANI ? Age:??80 Years?Sex:??Female?:??1945?LOC:??[facility]?? Subjective Patient was seen at bedside this morning. ??She was much more alert and oriented today compared to yesterday.?? She denies having dysuria, fever or chills.?? She also denied??any??shortness of breathor??dizziness. Slight bump in the creatinine from 1.1-1.4??today.?? UA came back positive for UTI.?? Received 1 dose of IV ceftriaxone last night. She remains hemodynamically stable,??afebrile??with no leukocytosis. Review of Systems Negative unless mentioned above. Objective Measurements?? Height: 168 cm (06/28/25) Weight: 66.6 kg (06/28/25) Dry Weight: 67.4 kg (06/25/25) Body Mass Index: 23.88 kg/m2 (06/25/25) ? Vital Signs?? Temperature: 98 DegF (06/28/25 08:17:00) Temperature Route: Oral (06/28/25 08:17:00) Pulse Rate: 67 bpm (06/28/25 08:20:00) Respiratory Rate: 16 br/min (06/28/25 08:17:00) Systolic Blood Pressure: 117 mm Hg (06/28/25 08:20:00) Diastolic Blood Pressure:??51 mm Hg??Low (06/28/25 08:20:00) Blood pressure sites: Arm, right (06/28/25 08:17:00) Mean Arterial Pressure: 73 mm Hg (06/28/25 08:17:00) Pulse Pressure: 66 mm Hg (06/28/25 08:17:00) Oxygen Saturation: 99 % (06/28/25 08:17:00) Liters per Minute: 1 L/min (06/28/25 08:17:00) Mode of Delivery (Oxygen): Nasal cannula (06/28/25 08:17:00) Early Warning Score: 0 (06/28/25 08:26:30) ? Physical Exam Constitutional: Alert, in no distress. Mental Status: Oriented to person, place Head: Normocephalic. Respiratory: Clear to auscultation. No wheezing, rales or rhonchi. Cardiovascular: S1 S2 regular. No murmurs, rubs or gallops. Gastrointestinal: Abdomen soft, non-tender, non-distended. Normal bowel sounds. No pulsatile mass. No hepatosplenomegaly. Genitourinary: No costovertebral angle tenderness. Neurologic: Cranial nerves II-XII grossly intact. No focal neurological deficits. Flexor plantar response. Moves all extremities spontaneously. Sensation intact bilaterally. _ 72 Hour Antibiotic History Stopped Antibiotics Stop Date/Time Last Administered First Administered Ceftriaxone??1 Gm, 200 mL/hr, IVPB, Once 06/28/2025 04:29 06/28/2025 04:24 06/28/2025 04:24 ? Assessment/Plan Chief Complaint: SOB ?? Diagnoses Acute hypoxic respiratory failure ??(J96.01) Anemia ??(D64.9) CHF exacerbation ??(I50.9) Hypoxia ??(R09.02) 1. ??AF (paroxysmal atrial fibrillation) ??(I48.0) 2. ??Acute on chronic diastolic (congestive) heart failure ??(I50.33) 3. ??Depression, unspecified depression type ??(F32.A) 4. ??Alcohol use disorder ??(F10.90) ?80-year-old woman with PMH significant for??PAF s/p??prior ablations and PPM,??HTN, diastolic??HF,??HLD, OA, primary biliary sclerosis, liver cirrhosis,??who??presents today for complaints of weakness and lightheadedness, now admitted and??treated??for acute hypoxic respiratory failure secondary to acute on chronic heart failure exacerbation.? Acute on chronic diastolic heart failure (I50.33) ?Associated with??Acute hypoxic respiratory failure (J96.01),?? AF (paroxysmal atrial fibrillation) (I48.0) ? Presented with shortness of breath after feeling weak.??Has history of??atrial fibrillation as well as diastolic CHF (last echocardiogram??in April 2024??) Possibly etiology of acute exacerbation?? is medication noncompliance due to worsening dementia ECHO 06/18- LVEF 59%, no regional wall motion abN, increased filling pressures suggestive of diastolic HF cxr 06/17 with worsening pulm edema compared to??cxr on admission she is 100% v paced on tele Plan- - s/p Lasix 40mg IV tid-->torsemide 20mg PO daily--> holding today due to MAREN -Continue Eliquis -GDMT : continue metoprolol, and hold??dapagliflozin, spironolactone??in the setting of MAREN - I and O and daily weight -??titrate down o2 as tolerated ?? Acute kidney injury Likely prerenal in the setting of??poor p.o. intake??due to??confusion Serum creatinine 1.4 today Hold??p.o. torsemide, spironolactone and dapagliflozin Continue to monitor renal function test Avoid nephrotoxic medications and hypotension Encourage p.o. intake ?? UTI UA positive for urinary tract infection Patient denies any symptoms, afebrile and hemodynamically stable, no leukocytosis Status post 1 dose of IV ceftriaxone Continue Keflex??500 mg every 6 hours??to complete total of 5 days of course Follow-up urine culture ?? Iron Deficiency Anemia (D64.9):??Multiple episodes of reported dark tarry stools as per daughter. Hgb 7.7 on admission ( baseline 9) Iron panel with low Iron and iron saturation hb is stable??at 7 at this point, no reported melena or blood in stool while hospitalized Colonoscopy done??with internal hemorrhoids, angiectasia in ascending colon???thermal therapy, colon otherwise normal.?? If episode of recurrent melena/anemia after this admission despite ablation ofthese 2 AVMs then would pursue question capsule endoscopy, but no need to do if no further bleeding - s/p Venofer 500 IV x2 - CBC daily?? - IV PPI - Will transfuse to keep Hb >7 - cont Eliquis? Hypokalemia resolved ?? Alcohol use disorder (F10.90):??Patient reportedly drinks about 1 drink 4/7 days of the week. Last drink one day before admission - s/p CIWA protocol (not scoring) ?? Depression, unspecified depression type (F32.A): ??- Continue sertraline ?? Mild-Moderate Dementia with behavioral disturbance likely mixed secondary to AD& Vascular disease, chronic alcohol use Lacks Insight Per last avinash note- Health Care Proxy Invoked. High risk for delirium ? Quality Measures Code:??Full Code, confirmed with patient, family[facility] Prophylaxis:?eliquis Diet:??Regular diet ?? scientific research manager helping with placement?? Updated daughter/HCP ?? Dispo-likely tomorrow to??rehab, awaiting authorization ? Electronically Signed on 06/28/25 12:34 PM Estiven LEE, Greta Consult note * Devi Hsu MD: PERFORM Event Display: Consultation Note Authored Date: [id number] Patient: ??MARGARITA LAKHANI ? Age:??80 Years?Sex:??Female?:??1945?LOC:??[facility]?? Chief Complaint SOB History of Present Illness 80-year-old female with multiple comorbidities including A-fib, status post watchman, PPM, hypertension, CHF, DVT on Eliquis, PBC and active alcohol use who presented to the emergency department on 06/15 with fatigue, lightheadedness and presyncope in the setting of 1-2 weeks of melena for which GIis consulted.?? She has been admitted for anemia and CHF exacerbation C/D acute hypoxic respiratory failure requiring nasal cannula. ?? Daughter/HCP at bedside contributed to the history.?? Reports that the patient has been having black tarry stool for the past 1 to 2 weeks.?? She has also been feeling weak and had 2 episodes of prior syncope/lightheadedness but no actual syncope.?? Denies abdominal pain.?? Daughter reports that her mom has been drinking alcohol almost daily. ?? Hemoglobin 7.7 (baseline 8-9), platelets 225, BUN 28, creatinine 1.2 (at baseline).?? Ferritin 36, iron saturation 9%. Review of Systems Negative except as above. Physical Exam Vitals & Measurements T:??97.5?F?? TMIN:??97.5?F?? TMAX:??97.9?F?? HR:??78??(Peripheral)?? RR:??18?? BP:??112/96?? SpO2:??100%?? WT:??69.0??kg?? General:??No acute distress. Well developed HEENT:??Moist mucus membranes. Anicteric sclera Respiratory:??Speaking comfortably??but breathing loudly GI/Abdomen:??soft, non-tender, non-distended Extremities:??No edema. Neurologic: Alert & Oriented Assessment/Plan Assessment:??80-year-old female with multiple comorbidities including A-fib, status post watchman, PPM, hypertension, CHF, DVT on Eliquis, PBC and active alcohol use who presented to the emergency department on 06/15 with fatigue, lightheadedness and presyncope in the setting of 1-2 weeks of melenafor which GI is consulted.??She has been admitted for anemia and CHF exacerbation C/D acute hypoxicrespiratory failure requiring nasal cannula. ?? #UGIB??possibly??gastritis, PUD, AVM.??Less likely??varices ?? -EGD??once the patient is stable from a cardiorespiratory standpoint -Protonix 40 IV??twice daily -??trend hemoglobin and monitor for signs and symptoms of GI bleeding??y ? Patient discussed with??attending physician? Devi Hsu MD?? Gastroenterology Fellow - PGY V ?? Problem List/Past Medical History Ongoing Acute peptic ulcer with hemorrhage but without obstruction AF (paroxysmal atrial fibrillation) Alcohol abuse Alzheimer dementia CHF (congestive heart failure) Cirrhosis of Liver primary biliary Depression Dyspnea Essential (primary) hypertension Hyperlipidemia Hypokalemia Left leg swelling Macular degeneration Osteoarthritis of knee Pacemaker Patient has healthcare proxy Pleural effusion Purpura SCC (squamous cell carcinoma), face Unintentional weight loss Procedure/Surgical History Upper gastrointestinal endoscopy including esophagus, stomach, and either the duodenum and/or jejunum as appropriate; diagnostic, with or without collection of specimen(s) by brushing or washing (separate procedure): 12/18/13 Upper gastrointestinal endoscopy including esophagus, stomach, and either the duodenum and/or jejunum as appropriate; diagnostic, with or without collection of specimen(s) by brushing or washing (separate procedure): 07/10/13 Knee replacement Appendectomy Ablation Medications Inpatient Acetaminophen(Acetaminophen Tablet), 650 mg, By Mouth, Every 4 hours, PRN dapagliflozin(Dapagliflozin Tablet), 10 mg, By Mouth, Daily Folic Acid(Folic Acid Tablet), 1 mg, By Mouth, Daily Furosemide(Lasix Inj), 40 mg= 4 mL, IV Push Slowly, 3 times a day Lorazepam(Ativan Tablet), 1 mg, By Mouth, Every 2 hours, PRN Lorazepam(Ativan Tablet), 2 mg, By Mouth, Every 2 hours, PRN Lorazepam(LORazepam Tablet), 2 mg, By Mouth, Every hour, PRN Metoprolol(metoprolol 25 mg oral tablet, extended release), 25 mg, By Mouth, Daily Multivitamin With Minerals(Multivit Therapeutic/Minerals Tablet), 1 tablet, By Mouth, Daily Pantoprazole(Pantoprazole Inj), 40 mg, IV Push Slowly, 2 times a day Pyridoxine(Pyridoxine Tablet), 50 mg, By Mouth, Daily Sertraline(sertraline 50 mg oral tablet), 100 mg, By Mouth, Daily Spironolactone(spironolactone 25 mg oral tablet), 25 mg, By Mouth, Daily Thiamine(Thiamine Tablet), 100 mg, By Mouth, 2 times a day Ursodiol(ursodiol 300 mg oral capsule), 300 mg, By Mouth, 2 times a day Home Acetaminophen(acetaminophen 325 mg oral tablet), 975 mg, By Mouth, Every 8 hours apixaban(Eliquis 5 mg oral tablet), 1 tablet, By Mouth, 2 times a day, 3 refills dapagliflozin(dapagliflozin 10 mg oral tablet), 10 mg= 1 tablet, By Mouth, Daily, 3 refills Furosemide(Lasix 40 mg oral tablet), 40 mg= 1 tablet, By Mouth, 2 times a day Metoprolol(metoprolol 25 mg oral tablet, extended release), 25 mg= 1 tablet, By Mouth, Daily Mirtazapine(mirtazapine 15 mg oral tablet), 15 mg= 1 tablet, By Mouth, Daily at bedtime Multivitamin With Minerals(PreserVision AREDS 2 oral capsule), See Instructions Multivitamin With Minerals(PreserVision AREDS 2 oral capsule), 1 capsule, By Mouth, 2 times a day Omeprazole(omeprazole 40 mg oral enteric coated capsule), 40 mg= 1 capsule, By Mouth, Daily, 1 refills Sertraline(sertraline 100 mg oral tablet), 100 mg= 1 tablet, By Mouth, Daily, 1 refills Spironolactone(spironolactone 25 mg oral tablet), 1 tablet, By Mouth, Daily Ursodiol(ursodiol 500 mg oral tablet), 1 tablet, By Mouth, 2 times a day Allergies Iophen NR (Persistent Severe)??dizziness codeine??light headedness codeine-guaiFENesin??itchy Social History Alcohol Use:Current Frequency:Daily Type:Wine Other:1/2 liter - 1.5 liters daily Has alcohol use interfered with work or home life:Yes Do you ever drink more than intended:No Has anyone been hurt or at risk by your drinking:No Binge drinking:No Electronic Cigarette/Vaping E-Cigarette Use:Never Employment/School Status:Retired Exercise Self assessment:Fair condition Regular exercise:Yes Times per week:1-2 times/week Home/Environment Living situation:Home/Independent Lives with:Alone Nutrition/Health Diet: (Don't list allergies here)Regular Sexual Gender identity:Female Self described orientation:Straight or heterosexual, Not listed Preferred pronoun:She/Her/Hers Substance Abuse Use:Never Tobacco Use:Never (less than 100 in lifetime) Tobacco user in household:Yes Other:In the past ex and mother used to smoke in house. Family History Cancer of lung: Brother. Congestive heart failure: Negative: Father. Heart disease: Mother and Father. Hyperlipidemia: Negative: Father. Hypertension: Negative: Father. Electronically Signed on 06/17/25 05:22 PM Devi Hsu MD * Juan Lazar DO: PERFORM Event Display: Consultation Note Authored Date: GI Attending Note: ?? The patient was seen, examined and discussed with the??fellow. I have personally reviewed all of the labs and imaging. Additionally, I personally created the assessment and plan of care on rounds anddelineated in the above note. Additional comments as below: ?? seems to be stable UGIB, would benefit from EGD once medically optimized dw daughter ?? Please call with questions or concerns. Thank you for allowing me to participate in this patient's care. ?? Juan Lazar DO [facility] [address] [place] [address], [address] [place] [address] Electronically Signed on 06/17/25 09:30 PM Juan Lazar DO Note * Greta Jean-Baptiste MD: PERFORM Event Display: Discharge/Transfer Note Hospital Authored Date: Patient: ??MARGARITA LAKHANI ? Age:??80 Years?Sex:??Female?:??1945?LOC:??[facility]?? Patient Information Discharge Location: 7 Primary Care Physician: Josefina VALLE, Lynette Holley Admit Date/Time: 06/15/2025 14:49 Discharge Disposition Discharge Disposition: Half-Way Facility/Rehab Discharge Diagnosis AF (paroxysmal atrial fibrillation) (I48.0) Acute on chronic diastolic (congestive) heart failure (I50.33) Depression, unspecified depression type (F32.A) Alcohol use disorder (F10.90) Anemia (D64.9) Acute hypoxic respiratory failure (J96.01) Hypoxia (R09.02) CHF exacerbation (I50.9) _ Discharge Medications Acetaminophen (acetaminophen 325 mg oral tablet)??975 Milligram By Mouth Every 8 hours apixaban (Eliquis 5 mg oral tablet)??1 tab(s) By Mouth 2 times a day Cephalexin (cephalexin monohydrate 500 mg oral capsule)??500 Milligram By Mouth Every 6 hours for 3Days dapagliflozin (dapagliflozin 10 mg oral tablet)??1 tab(s) 10 Milligram By Mouth Daily Folic Acid (folic acid 1 mg oral tablet)??1 Milligram By Mouth Daily Metoprolol (metoprolol 25 mg oral tablet, extended release)??25 Milligram 1 tablet By Mouth Daily Mirtazapine (mirtazapine 15 mg oral tablet)??1 tab(s) 15 Milligram By Mouth Daily at bedtime for 90Days Multivitamin With Minerals (PreserVision AREDS 2 oral capsule)??See Instructions Multivitamin With Minerals (PreserVision AREDS 2 oral capsule)??1 capsule By Mouth 2 times a day Omeprazole (omeprazole 40 mg oral enteric coated capsule)??1 capsule 40 Milligram By Mouth 2 times a day for 30 Days Pyridoxine (Pyridoxine Tablet)??50 Milligram By Mouth Daily Sertraline (sertraline 100 mg oral tablet)??1 tab(s) 100 Milligram By Mouth Daily Spironolactone (spironolactone 25 mg oral tablet)??1 tablet By Mouth Daily Thiamine (thiamine 100 mg oral tablet)??100 Milligram By Mouth 2 times a day torsemide (torsemide 20 mg oral tablet)??1 tab(s) 20 Milligram By Mouth Daily Ursodiol (ursodiol 500 mg oral tablet)??1 tab(s) By Mouth 2 times a day ? Discharge Medications New Cephalexin (cephalexin monohydrate 500 mg oral capsule)500 Milligram Oral every 6 hours for 3 Days.Refills: 0. Folic Acid (folic acid 1 mg oral tablet)1 Milligram Oral Daily. Pyridoxine (Pyridoxine Tablet)50 Milligram Oral Daily. Thiamine (thiamine 100 mg oral tablet)100 Milligram Oral twice a day. torsemide (torsemide 20 mg oral tablet)1 tab(s) Oral Daily. Changed Omeprazole (omeprazole 40 mg oral enteric coated capsule)1 capsule Oral twice a day for 30 Days. Refills: 1. Unchanged Acetaminophen (acetaminophen 325 mg oral tablet)975 Milligram Oral every 8 hours. apixaban (Eliquis 5 mg oral tablet)1 tab(s) Oral twice a day. Refills: 3. dapagliflozin (dapagliflozin 10 mg oral tablet)1 tab(s) Oral Daily. Refills: 3. Metoprolol (metoprolol 25 mg oral tablet, extended release)1 tab(s) Oral Daily. Refills: 0. Mirtazapine (mirtazapine 15 mg oral tablet)1 tab(s) Oral Daily at Bedtime for 90 Days. Refills: 0. Multivitamin With Minerals (PreserVision AREDS 2 oral capsule)1 capsule Oral twice a day. Multivitamin With Minerals (PreserVision AREDS 2 oral capsule) Sertraline (sertraline 100 mg oral tablet)1 tab(s) Oral Daily. Refills: 1. Spironolactone (spironolactone 25 mg oral tablet)1 tab(s) Oral Daily. Refills: 1. Ursodiol (ursodiol 500 mg oral tablet)1 tab(s) Oral twice a day. Discontinued Furosemide (Lasix 40 mg oral tablet)1 tab(s) Oral twice a day. Future Appointments Wednesday 1:40 PM EST ?? Type: [employer] Where[facility] [address] [place] [phone]- Status: Pending Wednesday 4:00 PM EST ?? Type: Return With: Isabelle Quarles MD Where: [facility] [address] [place] [phone]- Status: Pending 2024 3:45 PM EST ?? Type: Return With: Jhonny Malhotra MD Where: [facility] [address] [place] [phone]- Status: Pending Hospital Course 80-year-old woman with PMH significant for PAF s/p prior ablations and PPM, HTN, diastolic HF, HLD,OA, primary biliary sclerosis, liver cirrhosis, who presents today for complaints of weakness and lightheadedness, admitted and treated for acute hypoxic respiratory failure secondary to acute on chronic heart failure exacerbation. ? Acute on chronic diastolic heart failure (I50.33) ? Associated with Acute hypoxic respiratory failure (J96.01), AF (paroxysmal atrial fibrillation) (I48.0) ? Presented with shortness of breath after feeling weak. Has history of atrial fibrillation as well as diastolic CHF (last echocardiogram in April 2024 ) ??Possibly etiology of acute exacerbation is medication noncompliance due to worsening dementia ??ECHO 06/18- LVEF 59%, no regional wall motion abN, increased filling pressures suggestive of diastolic HF ??cxr 06/17 with worsening pulm edema compared to cxr on admission ??she is 100% v paced on tele ??Plan- - s/p Lasix 40mg IV tid-->torsemide 20mg PO daily ??-Continue Eliquis for stroke prevention ??-GDMT : continue metoprolol, dapagliflozin and spironolactone ??- I and O and daily weight ??- titrate down o2 as tolerated - watch for po intake if intermittently confused and titrate GDMT to prevent MAREN ?? Acute kidney injury- improving Likely prerenal in the setting of poor p.o. intake due to confusion iso UTI Serum creatinine 1.2 down from 1.5 ( baseline ~1.2) Resume torsemide, spironolactone and dapagliflozin Continue to monitor renal function test Avoid nephrotoxic medications and hypotension ??Encourage p.o. intake ?? UTI ??UA positive for urinary tract infection ??Patient denies any symptoms, afebrile and hemodynamically stable, no leukocytosis ??Status post 1 dose of IV ceftriaxone ??Continue Keflex 500 mg every 6 hours to complete total of 5 days of course ? Iron Deficiency Anemia (D64.9): Multiple episodes of reported dark tarry stools as per daughter. Hgb 7.7 on admission ( baseline 9) ??Iron panel with low Iron and iron saturation ??hb is stable at 7 at this point, no reported melena or blood in stool while hospitalized Colonoscopy done with internal hemorrhoids, angiectasia in ascending colon???thermal therapy, colonotherwise normal. If episode of recurrent melena/anemia after this admission despite ablation of these 2 AVMs then would pursue question capsule endoscopy, but no need to do if no further bleeding - s/p Venofer 500 IV x2 ??- PPI po BID for 14 days then can be transitioned to daily dose - transfuse to keep Hb >7 ??- cont Eliquis ? Hypokalemia ??resolved ? Alcohol use disorder (F10.90): Patient reportedly drinks about 1 drink 4/7 days of the week. Last drink one day before admission ??- s/p CIWA protocol (not scoring) -cont folic acid, thiamine and pyridoxine ?? Depression, unspecified depression type (F32.A): ?- Continue sertraline ?? 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 High risk for delirium ?? Objective Vital Signs?? Temperature: 98.1 DegF (06/29/25 07:00:00) Temperature Route: Oral (06/29/25 07:00:00) Pulse Rate: 68 bpm (06/29/25 08:34:00) Respiratory Rate: 18 br/min (06/29/25 07:00:00) Systolic Blood Pressure: 103 mm Hg (06/29/25 08:34:00) Diastolic Blood Pressure:??47 mm Hg??Low (06/29/25 08:34:00) Blood pressure sites: Arm, right (06/29/25 07:00:00) Mean Arterial Pressure: 64 mm Hg (06/29/25 01:46:00) Pulse Pressure: 56 mm Hg (06/29/25 07:00:00) Oxygen Saturation: 98 % (06/29/25 07:00:00) Liters per Minute: 1 L/min (06/29/25 07:00:00) Mode of Delivery (Oxygen): Nasal cannula (06/29/25 07:00:00) Early Warning Score: 1 (06/29/25 08:57:43) ? . Physical Exam Constitutional: Alert, in no distress. Respiratory: Clear to auscultation. No wheezing, rales or rhonchi. Cardiovascular: S1 S2 regular. No murmurs, rubs or gallops. Gastrointestinal: Abdomen soft, non-tender, non-distended. Normal bowel sounds. No pulsatile mass. No hepatosplenomegaly. Genitourinary: No costovertebral angle tenderness. Neurologic: Cranial nerves II-XII grossly intact. No focal neurological deficits. Flexor plantar response. Moves all extremities spontaneously. Sensation intact bilaterally. Skin: No rashes or lesions. No petechiae or purpura.? Surgical Procedures Gastroscopy (EGD) with Biopsy 06/22/2025 13:25 Colonoscopy Diagnostic 06/25/2025 14:09 Pending Results Add On Lab Order ordered on 06/16/2025 Add On Lab Order ordered on 06/25/2025 Add On Lab Order ordered on 06/28/2025 Urine Culture ordered on 06/28/2025 Patient Instructions You presented with shortness of breath and were found to have acute worsening of your heart failure. You were treated with intravenous medication and you showed improvement. You also had drop in yourhemoglobin for which you underwent upper and lower endoscopy and bleeding vessels were treated. Youreceived blood transfusion and now your hemoglobin??is stable. You were also started on antibioticsfor urinary tract infection and now being discharged to Rehab. Please return back to hospital if you develop shortness of breath, dizziness, chest pain , or blood in your stool.?? Post Discharge Care Diet: ??Cardiac diet ?? Prognosis: ??Fair ?? Discharge ?06/29/25 10:42:00 EST ?Order Comment:?? Home Health Face to Face ^HomeHealthFTF Results Discharge Labs BLOOD COUNT & DIFF WBC 7.0 k/mm3 ()?? 06/29/2025 06:48 RBC 3.43 m/mm3 (Low)?? 06/29/2025 06:48 Hgb 8.8 Gm/dL (Low)?? 06/29/2025 06:48 Hct 29.6 % (Low)?? 06/29/2025 06:48 MCV 86.3 femtoliters ()?? 06/29/2025 06:48 MCH 25.7 pg (Low)?? 06/29/2025 06:48 MCHC 29.7 Gm/dL (Low)?? 06/29/2025 06:48 Platelet Count 259 k/mm3 ()?? 06/29/2025 06:48 RDW-SD 61.1 femtoliters (High)?? 06/29/2025 06:48 MPV 9.0 femtoliters (Low)?? 06/29/2025 06:48 Nucleated RBC (Automated) 0.0 #/100 WBC'S ()?? 06/29/2025 06:48 Abs. NRBC 0.0 k/mm3 ()?? 06/29/2025 06:48 Abs. Neut 5.4 k/mm3 ()?? 06/15/2025 13:29 Abs. Lymph 1.2 k/mm3 ()?? 06/15/2025 13:29 Abs. [place] 1.0 k/mm3 (High)?? 06/15/2025 13:29 Abs. Eo 0.0 k/mm3 ()?? 06/15/2025 13:29 Abs. Baso 0.1 k/mm3 ()?? 06/15/2025 13:29 Neut % 70.0 % ()?? 06/15/2025 13:29 Lymph % 15.7 % ()?? 06/15/2025 13:29 [place] % 12.5 % (High)?? 06/15/2025 13:29 Eos % 0.5 % ()?? 06/15/2025 13:29 Baso % 0.8 % ()?? 06/15/2025 13:29 Imm Gran 0.5 % ()?? 06/15/2025 13:29 Abs. Imm Gran 0.0 k/mm3 ()?? 06/15/2025 13:29 ?? CARDIAC Nt-Probnp 9248 pg/mL (High)?? 06/15/2025 13:43 High Sensitivity Troponin (HSTnT) 32 ng/L (High)?? 06/15/2025 23:28 ?? CHEM GENERAL Sodium 133 mmol/L ()?? 06/29/2025 06:48 Potassium 4.1 mmol/L ()?? 06/29/2025 06:48 Chloride 100 mmol/L ()?? 06/29/2025 06:48 Bicarbonate Level 25 mmol/L ()?? 06/29/2025 06:48 Anion Gap 8 mmol/L ()?? 06/29/2025 06:48 Glucose Level 86 mg/dL ()?? 06/29/2025 06:48 BUN 19 mg/dL ()?? 06/29/2025 06:48 Creatinine-Blood 1.27 mg/dL (High)?? 06/29/2025 06:48 Estimated GFR Creatinine 43 ML/MIN/1.73 M2 ()?? 06/29/2025 06:48 Calcium 8.6 mg/dL ()?? 06/29/2025 06:48 Calcium, Ionized pH Corrected 1.18 mmol/L ()?? 06/15/2025 13:43 Magnesium 2.4 mg/dL (High)?? 06/17/2025 00:28 Protein, Total 6.6 Gm/dL ()?? 06/15/2025 13:43 Albumin 3.5 Gm/dL ()?? 06/15/2025 13:43 AG Ratio 1.1 ()?? 06/15/2025 13:43 Alkaline Phosphatase 123 units/L (High)?? 06/15/2025 13:43 AST (SGOT) 31 units/L ()?? 06/15/2025 13:43 ALT (SGPT) 17 units/L ()?? 06/15/2025 13:43 Bilirubin, Total 1.3 mg/dL (High)?? 06/15/2025 13:43 Vitamin B12 Level 1113 pg/mL ()?? 06/15/2025 23:28 Folic Acid Level HEMOLYZED ng/mL ()?? 06/15/2025 13:43 Lactate 1.3 mmol/L ()?? 06/15/2025 21:52 Iron Level 27 mcg/dL (Low)?? 06/15/2025 23:28 Iron Binding Capacity, Unsaturated 272 mcg/dL ()?? 06/15/2025 23:28 Iron Binding Capacity, Estimated Total 299 mcg/dL ()?? 06/15/2025 23:28 % Iron Saturation 9 % (Low)?? 06/15/2025 23:28 Ferritin Level 36 ng/mL ()?? 06/15/2025 23:28 ? HEME OTHER Hold Lavender Top SPECIMEN DISCARDED AFTER 24 HOURS. ()?? 06/25/2025 03:15 ? UA/URINALYSIS Appear/Color, Urine YELLOW ()?? 06/28/2025 01:24 Specific [place], Urine 1.013 ()?? 06/28/2025 01:24 pH, Urine 6.0 ()?? 06/28/2025 01:24 Albumin, Urine TRACE (Abnormal)?? 06/28/2025 01:24 Glucose, Urine NEGATIVE ()?? 06/28/2025 01:24 Ketones, Urine NEGATIVE ()?? 06/28/2025 01:24 Bilirubin, Urine NEGATIVE ()?? 06/28/2025 01:24 Hemoglobin, Urine TRACE (Abnormal)?? 06/28/2025 01:24 Nitrite, Urine NEGATIVE ()?? 06/28/2025 01:24 Leukocyte, Urine 3+ (Abnormal)?? 06/28/2025 01:24 Urobilinogen NORMAL mg/dL ()?? 06/28/2025 01:24 WBC's, Urine >182 /HPF (High) 06/28/2025 01:24 RBC's, Urine 10 /HPF (High)?? 06/28/2025 01:24 Bacteria HEAVY HPF (Abnormal)?? 06/28/2025 01:24 Squamous Epith 5 /HPF ()?? 06/28/2025 01:24 Transitional Epith 2 /HPF ()?? 06/28/2025 01:24 Hyaline Cast 8 LPF (High)?? 06/28/2025 01:24 Mucus SLIGHT /LPF ()?? 06/28/2025 01:24 WBC Clumps SLIGHT /HPF ()?? 06/18/2025 14:55 Hold Urine Culture Testing available 48 hours from time of collection. ()?? 06/28/2025 01:24 ?? URINE OTHER Sodium, Urine Random 96 mmol/L ()?? 06/18/2025 14:55 Est Creatinine Clearance 33.26 mL/min ()?? 06/29/2025 07:54 ?? VIROLOGY Influenza A PCR NEGATIVE ()?? 06/15/2025 13:29 Influenza B PCR NEGATIVE ()?? 06/15/2025 13:29 RSV PCR NEGATIVE ()?? 06/15/2025 13:29 COVID-19 PCR Specimen Source NASAL ()?? 06/15/2025 13:29 COVID-19 PCR Result NEGATIVE ()?? 06/15/2025 13:29 ? Microbiology ?? COVID-19, RSV, and Flu A/B, Rapid PCR?? Completed?? Source: Nasal Body Site: Nose Collected Dt/Tm: 06/15/2025 12:49 Last Updated Dt/Tm: 06/15/2025 15:05 ? 45_ minutes spent on discharge Electronically Signed on 06/29/25 10:43 AM Estiven LEE, Greta * Artem CLARK, Cassandra Sullivan: PERFORM, SIGN, VERIFY Event Display: Case Management Discharge Plan Authored Date: [id number] Patient: MARGARITA LAKHANI Age: 80 years Sex: Female : 1945 Associated Diagnoses: None Author: Artem CLARK, Cassandra Sullivan Discharge Plan Case Management Discharge Plan : Case Management Discharge Plan Data 06/29/2025 9:36 EST Discharge Level of Care at Discharge shelter facility Discharge Nursing [facility] [address] [place] [id number] [phone] Discharge Arranged Transport Date/Time 06/29/2025 11:00 Mode of Transportation Arranged Ambulance Name of Agency #1 [facility] Additional Info for D/C Instructions You are being transferred to [facility] today at 11 am. An ambulance will pick you up and bring you there. Name of Person Notified of Transfer Leah Electronically Signed on 06/29/25 09:40 AM Artem CLARK, Cassandra Reynoso RN, Eloise: PERFORM Event Display: Patient Education/Instruction Authored Date: Inpatient Adult Discharge Instructions. [address] [address] Name: MARGARITA LAKHANI : 1945?? Visit: 06/15/2025 14:49?? Current Date: 06/29/2025 10:50 ?? Account: [id number]?? Inpatient Adult Discharge Instructions We would like to thank you for allowing us to assist you with your healthcare needs. The following includes patient education materials and information regarding your injury/illness. Our entire staffstrives to provide an excellent experience for our patients and their families. PLEASE ENSURE YOU FOLLOW-UP PER THE INSTRUCTIONS BELOW! ?? YOUR OPINION IS IMPORTANT TO US! Please complete the survey you may receive by mail or email. Your feedback will be used to make improvements to the healthcare experiences of our patients and their families. Surveys are administered by [employer]. ?? If further treatment with your primary care physician or another doctor is recommended, it is important for you to keep the appointment. Call your primary care physician or return to the Emergency Department immediately if your condition worsens, fails to improve, or new symptoms develop. If you need to find a doctor, you can call [facility] [employer] Link for a referral at [phone] or toll free at [phone] or log in to [email or web address] ?? [facility], in keeping with [facility] guidance, no longer requires face masks for staff, patientsor visitors in most situations. Similiar to time spent indoors at other locations, there is the chance that you were exposed to repiratory viruses during your time with us (such as flu or COVID-19). If you develop symptoms concerning for a viral respiratory infection, please seek testing (and treatment if indicated) from your medical provider or home test kit. ?? You can view and manage your care through the patient portal or by using a health care poppy of your choosing. [employer] is a website that allows you to securely view your medical information including your hospital discharge summary, office visit summaries, medications and follow-up visits. You can also request appointments, renew medications, and request access to your medical information using a health care poppy of your choosing, or just ask a question. You are entitled to know the individuals who participated in your treatment. This information is available within your medical record and will be provided upon your request. You can enroll at [email or web address] or register d uring your next office visit. You have been discharged from [facility], Patient Care Unit: M7??. If you have any questions regarding these instructions, including results of studies pending, afteryou leave, please call us and we will be happy to assist you 08/03. [facility] Your Care Team Attending Physician Greta Jean-Baptiste MD?? Consulting Providers Greta Jean-Baptiste MD?? Discharging Providers Greta Jean-Baptiste MD Reason for Your Visit SOB?? Your Diagnosis AF (paroxysmal atrial fibrillation) Acute on chronic diastolic (congestive) heart failure Depression, unspecified depression type Alcohol use disorder Acute hypoxic respiratory failure Tests Performed Below is a partial list of the tests performed during your hospitalization. You may have had other tests and procedures not included in this list. Please discuss all test results with your provider. Basic Metabolic Panel BUN Calcium Ionized Calcium Level CBC CBC w/ Differential Comprehensive Metabolic Panel COVID-19, RSV, and Flu A/B, Rapid PCR Creatinine Electrolytes FERRITIN FOLIC ACID Glucose Level High??Sensitivity??Troponin T HOLD LAVENDER TUBE HOLD URINE CULTURE IRON & TIBC Lactate Level Magnesium Level ProBNP Troponin T, High Sensitivity UA Urinalysis w/hold for Urine Culture Urine Sodium VITAMIN B12 CT Abdomen and Pelvis W/O Contrast CXR Portable Chest XR Chest 2 Views Frontal and Lat Add On Lab Order?? B Type Natriuretic Peptide (NT-proBNP) (ProBNP)?? BUN?? Basic Metabolic Panel?? CBC?? CBC w/ Differential?? COVID-19, RSV, and Flu A/B, Rapid PCR?? CT Abdomen and Pelvis W/O Contrast?? Calcium Level?? Complete Urinalysis (UA)?? Comprehensive Metabolic Panel?? Creatinine?? Electrolytes?? Ferritin?? Folate Level (FOLIC ACID)?? Glucose Level?? High??Sensitivity??Troponin T (Troponin T, High Sensitivity)?? Hold Lavender Top Tube (HOLD LAVENDER TUBE)?? Hold Urine Culture?? Ionized Calcium (Calcium Ionized)?? Iron + Iron Binding Capacity (IRON & TIBC) Lactic Acid Level (Lactate Level)?? Magnesium Level?? Pathology Tissue Request ()?? Sodium Urine (Urine Sodium)?? Urinalysis w/hold for Urine Culture?? Urine Culture (Urine Culture, Routine)?? Vitamin B12 Level (VITAMIN B12)?? Chest 2 Views Frontal and Lat (CXR)?? Chest Portable (Portable Chest)?? Primary Care Provider Dorsey-Hilton PA, Lynette Holley? Advance Directive Health Care Proxy on File Yes - Health Care Proxy Yes - MOLST Discharge Vitals Temperature: 98.1 DegF Height: 168 cm Pulse Rate: 68 bpm Weight: 68.3 kg Respiratory Rate: 18 br/min Body Mass Index: 23.88 kg/m2 Systolic Blood Pressure: 103 mm Hg Body surface area: 1.77 Diastolic Blood Pressure:??47 mm Hg??Low ?? Oxygen Saturation: 98 % ?? Studies Pending All studies ordered during this hospital stay have been completed unless listed below. Please discuss all pending results with your provider listed above in these instructions. ?? Add On Lab Order?? Urine Culture (Urine Culture, Routine)?? What to do next Instructions From Your Doctor You presented with shortness of breath and were found to have acute worsening of your heart failure. You were treated with intravenous medication and you showed improvement. You also had drop in yourhemoglobin for which you underwent upper and lower endoscopy and bleeding vessels were treated. Youreceived blood transfusion and now your hemoglobin??is stable. You were also started on antibioticsfor urinary tract infection and now being discharged to Rehab. Please return back to hospital if you develop shortness of breath, dizziness, chest pain , or blood in your stool.? Orders??:Cardiac diet :Fair? 06/29/25 10:42:00 EST?? Scheduled Follow-Up Appointments Wednesday 1:40 PM EST ?? Type: [employer] [facility] [address] [place] [phone]- Status: Pending Wednesday 4:00 PM EST ?? Type: Return With: Isabelle Quarles MD Where: [facility] [address] [place] [phone]- Status: Pending 2024 3:45 PM EST ?? Type: Return With: Jhonny Malhotra MD Where: [facility] [address] [place] [id number]- Status: Pending Discharge Medications MARGARITA LAKHANI :1945 Visit Date:06/15/2025 Medications: Please continue your medications until treatment is completed or stopped by your provider. Medications not listed below should be discontinued. Discuss any questions related to medications with your provider. What How Much When Instructions Next Dose New Cephalexin (cephalexin monohydrate 500 mg oral capsule) 500 Milligram Oral Every 6 hours Duration: 3 Days Ordering Physician: Greta Jean-Baptiste MD 2pm, 8pm . . . New Folic Acid (folic acid 1 mg oral tablet) 1 Milligram Oral Daily Ordering Physician: Greta Jean-Baptiste MD tomorrow morning New Pyridoxine (Pyridoxine Tablet) 50 Milligram Oral Daily Ordering Physician: Greta Jean-Baptiste MD tomorrow morning New Thiamine (thiamine 100 mg oral tablet) 100 Milligram Oral Twice a day Ordering Physician: Greta Jean-Baptiste MD this evening New torsemide (torsemide 20 mg oral tablet) 1 tab(s) Oral Daily Ordering Physician: Greta Jean-Baptiste MD tomorrow morning Changed Omeprazole (omeprazole 40 mg oral enteric coated capsule) 1 capsule Oral Twice a day Duration: 30 Days Ordering Physician: Greta Jean-Baptiste MD this evening Unchanged Acetaminophen (acetaminophen 325 mg oral tablet) 975 Milligram Oral Every 8 hours Ordering Physician: Margie Larry NP as needed Unchanged apixaban (Eliquis 5 mg oral tablet) 1 tab(s) Oral Twice a day Ordering Physician: Ish Love this evening Unchanged dapagliflozin (dapagliflozin 10 mg oral tablet) 1 tab(s) Oral Daily Ordering Physician: Lynette Martinez tomorrow morning Unchanged Metoprolol (metoprolol 25 mg oral tablet, extended release) 1 tab(s) Oral Daily Ordering Physician: Lynette Martinez tomorrow morning Unchanged Mirtazapine (mirtazapine 15 mg oral tablet) 1 tab(s) Oral Daily at Bedtime Duration: 90 Days Ordering Physician: Isabelle Quarles MD this evening Unchanged Multivitamin With Minerals (PreserVision AREDS 2 oral capsule) 1 capsule Oral Twice a day this evening Unchanged Multivitamin With Minerals (PreserVision AREDS 2 oral capsule) See instructions Unchanged Sertraline (sertraline 100 mg oral tablet) 1 tab(s) Oral Daily Ordering Physician: Lynette Martinez tomorrow morning Unchanged Spironolactone (spironolactone 25 mg oral tablet) 1 tab(s) Oral Daily Ordering Physician: Autumn Rouse NP tomorrow morning Unchanged Ursodiol (ursodiol 500 mg oral tablet) 1 tab(s) Oral Twice a day this evening ?? What How Much When Comments Stop Taking Furosemide (Lasix 40 mg oral tablet) 1 tab(s) Oral Twice a day Prescription Given During Visit Cephalexin (cephalexin monohydrate 500 mg oral capsule) - 500 mg, By Mouth, Every 6 hours, # 12 tablet, 0 Refills?? Omeprazole (omeprazole 40 mg oral enteric coated capsule) - 1 capsule = 40 mg, By Mouth, 2 times a day, # 60 capsule, 1 Refills?? Laboratory Results Below is a partial list of the most recent Laboratory test results done prior to this discharge. You may have had other tests and procedures not included in this list. Please discuss all test resultswith your provider. Est Creatinine Clearance - 33.26 mL/min (06/29/2025) [id number] (06/22/2025) Surgical Pathology - Patient Name: MARGARITA LAKHANI
Lab
Patient : 1945 (Age: 80)
Collection Date: 06/22/2025
Accession Date: 06/22/2025
Sign Out Date: 06/26/2025

Tissue Source:
1:DUODENAL BXS
2:CARDIA POLYP

Final Diagnosis:
1. Duodenum, biopsy:
- Gastric heterotopia.

2. Stomach, cardia, polypectomy:
- Gastriccardia fundic mucosa with PPI therapy effect.
- H. pylori organismsare not identified on H&E histology.

Primary Pathologist:ERICK FARAH M.D.
electronically signed out by: ERICK FARAH M.D. / S

Gross Description:
Part 1. Labeled duodenal biopsies . Received in formalin are 3 davies-brown irregular soft tissue pieces ranging from 0.3 x 0.2 x 0.2 cm to 0.7 x 0.2 x 0.2 cm. The specimen is submitted in toto.
1-3 pieces x 2 EOE. (RM)*
Part 2. Labeled cardia polyp& amp;quot;. Received in formalin is 1 davies-pink polypoid tissue piece measuring 1.3 x 0.4 x0.2 cm. The specimen is inked and bisected. The specimen is entirely submitted.
1-2 pieces x 2 EOE. (RM)*

As of October 23, 2023, the specimen processing and staining is performed at [facility], [address] [place] [address] (CLIA#[id number]). Its performance characteristics determined by Monie Koo. Jennifer Farah M.D. [facility] of Surgical Pathology, Sakina Arnold M.D. [facility] Cytopathology

Phone #: [phone], On-CallPathologist: [id number] Basic Metabolic Panel (06/29/2025) ???Sodium - 133 mmol/L???Potassium - 4.1 mmol/L???Chloride - 100 mmol/L???Bicarbonate Level - 25 mmol/L???Anion Gap - 8 mmol/L???Glucose Level - 86 mg/dL???BUN - 19 mg/dL???Creatinine-Blood - 1.27 mg/dL???Estimated GFR Creatinine - 43 ML/MIN/1.73 M2???Calcium - 8.6 mg/dL BUN (06/26/2025) ???BUN - 16 mg/dL Calcium Ionized (06/15/2025) ???Calcium, Ionized pH Corrected - 1.18 mmol/L Calcium Level (06/26/2025) ???Calcium - 8.6 mg/dL CBC (06/29/2025) ???WBC - 7.0 k/mm3???RBC - 3.43 m/mm3???Hgb - 8.8 Gm/dL???Hct - 29.6 %???MCV - 86.3 femtoliters???MCH - 25.7 pg???MCHC - 29.7 Gm/dL???Platelet Count - 259 k/mm3???RDW-SD - 61.1 femtoliters???MPV - 9.0 femtoliters???Nucleated RBC (Automated) - 0.0 #/100 WBC'S???Abs. NRBC - 0.0 k/mm3 CBC w/ Differential (06/15/2025) ???WBC - 7.7 k/mm3???RBC - 3.08 m/mm3???Hgb - 7.7 Gm/dL???Hct - 26.0 %???MCV - 84.4 femtoliters???MCH - 25.0 pg???MCHC - 29.6 Gm/dL???Platelet Count - 200 k/mm3???RDW-SD - 49.5 femtoliters???MPV - 9.0 femtoliters???Nucleated RBC (Automated) - 0.0 #/100 WBC'S???Abs. NRBC - 0.0 k/mm3???Abs. Neut - 5.4 k/mm3???Abs. Lymph - 1.2 k/mm3???Abs. [place] - 1.0 k/mm3???Abs. Eo - 0.0 k/mm3???Abs. Baso - 0.1 k/mm3???Neut % - 70.0 %???Lymph % - 15.7 %???[place] % - 12.5 %???Eos % - 0.5 %???Baso % - 0.8 %???Imm Gran - 0.5 %???Abs. Imm Gran - 0.0 k/mm3 Comprehensive Metabolic Panel (06/15/2025) ???Sodium - 135 mmol/L???Potassium - 4.2 mmol/L???Chloride - 101 mmol/L???Bicarbonate Level - 18 mmol/L???Anion Gap - 16 mmol/L???Glucose Level - 87 mg/dL???BUN - 35 mg/dL???Creatinine-Blood - 1.13 mg/dL???Estimated GFR Creatinine - 49 ML/MIN/1.73 M2???Calcium - 8.7 mg/dL???Protein, Total - 6.6 Gm/d L???Albumin - 3.5 Gm/dL???AG Ratio - 1.1???Alkaline Phosphatase - 123 units/L???AST (SGOT) - 31 units/L???ALT (SGPT) - 17 units/L???Bilirubin, Total - 1.3 mg/dL COVID-19, RSV, and Flu A/B, Rapid PCR (06/15/2025) ???Influenza A PCR - NEGATIVE???Influenza B PCR - NEGATIVE???RSV PCR - NEGATIVE???COVID-19 PCR Specimen Source - NASAL???COVID-19 PCR Result - NEGATIVE Creatinine (06/26/2025) ???Creatinine-Blood - 1.15 mg/dL???Estimated GFR Creatinine - 48 ML/MIN/1.73 M2 Electrolytes (06/26/2025) ???Sodium - 137 mmol/L???Potassium - 3.5 mmol/L???Chloride - 100 mmol/L???Bicarbonate Level - 26 mmol/L???Anion Gap - 11 mmol/L FERRITIN (06/15/2025) ???Ferritin Level - 36 ng/mL FOLIC ACID (06/15/2025) ???Folic Acid Level - HEMOLYZED Glucose Level (06/26/2025) ???Glucose Level - 122 mg/dL High??Sensitivity??Troponin T (06/15/2025) ???High Sensitivity Troponin (HSTnT) - 25 ng/L HOLD LAVENDER TUBE (06/25/2025) ???Hold Lavender Top - SPECIMEN DISCARDED AFTER 24 HOURS. HOLD URINE CULTURE (06/17/2025) ???Hold Urine Culture - Testing available 48 hours from time of collection. IRON & TIBC (06/15/2025) ???Iron Level - 27 mcg/dL???Iron Binding Capacity, Unsaturated - 272 mcg/dL???Iron Binding Capacity, Estimated Total - 299 mcg/dL???% Iron Saturation - 9 % Lactate Level (06/15/2025) ???Lactate - 1.3 mmol/L Magnesium Level (06/17/2025) ???Magnesium - 2.4 mg/dL ProBNP (06/15/2025) ???Nt-Probnp - 9248 pg/mL Troponin T, High Sensitivity (06/15/2025) ???High Sensitivity Troponin (HSTnT) - 32 ng/L UA (06/18/2025) ???Appear/Color, Urine - YELLOW???Specific [place], Urine - 1.010???pH, Urine - 6.0???Albumin, Urine - NEGATIVE???Glucose, Urine - TRACE???Ketones, Urine - NEGATIVE???Bilirubin, Urine - NEGATIVE???Hemoglobin, Urine - 1+???Nitrite, Urine - POSITIVE???Leukocyte, Urine - 3+???Urobilinogen - NORMAL???WBC's, Urine - 104 /HPF???RBC's, Urine - 16 /HPF???Bacteria - HEAVY???Squamous Epith - 2 /HPF???WBC Clumps - SLIGHT Urinalysis w/hold for Urine Culture (06/28/2025) ???Appear/Color, Urine - YELLOW???Specific [place], Urine - 1.013???pH, Urine - 6.0???Albumin, Urine - TRACE???Glucose, Urine - NEGATIVE???Ketones, Urine - NEGATIVE???Bilirubin, Urine - NEGATIVE???Hemoglobin, Urine - TRACE???Nitrite, Urine - NEGATIVE???Leukocyte, Urine - 3+???Urobilinogen - NORMAL?? WBC's, Urine - >182 /HPF RBC's, Urine - 10 /HPF Bacteria - HEAVY Squamous Epith - 5 /HPF ?Transitional Epith - 2 /HPF???Hyaline Cast - 8 LPF???Mucus - SLIGHT???Hold Urine Culture - Testingavailable 48 hours from time of collection. Urine Sodium (06/18/2025) ???Sodium, Urine Random - 96 mmol/L VITAMIN B12 (06/15/2025) ???Vitamin B12 Level - 1113 pg/mL Allergies (NKA means No Known Allergies) Iophen NR (Persistent Severe)??dizziness codeine??light headedness codeine-guaiFENesin??itchy Problems Active Problems??(21) actinic kerotoses?? Acute peptic ulcer with hemorrhage but without obstruction?? AF (paroxysmal atrial fibrillation)?? Alcohol abuse?? Alzheimer dementia?? CHF (congestive heart failure)?? 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 Depression?? Dyspnea?? Essential (primary) hypertension?? Hyperlipidemia?? Hypokalemia?? Left leg swelling?? Macular degeneration?? Osteoarthritis of knee?? Pacemaker?? Patient has healthcare proxy?? Pleural effusion?? Purpura?? SCC (squamous cell carcinoma), face?? Unintentional weight loss?? Education Materials Below is the list of Educational Leaflet Providered with your Discharge Instructions. WebMD Ignite Patient Education - Cephalexin?? Web[employer]ite Patient Education - Spironolactone?? Web[employer] Ignite Patient Education - Dapagliflozin?? WebMD Ignite Patient Education - Metoprolol?? WebMD Ignite Patient Education - Discharge Instructions for Heart Failure?? Valuables and Belongings I fully understand and agree that [facility] accepts no responsibility for all my personal property including clothing, toilet articles, radios, jewelry, dentures, hearing aids, rings, money, or any other property that is in my possession or is brought to me after admission. I understand certain valuables may be placed in a hospital safe for a short period of time. I understand that the hospital is not liable for loss or damage due to accident, fire, or other natural occurrence while said property is in the safe. I accept full responsibility for any personal property that I keep with me, and will not hold the hospital responsible in case of loss or disappearance. I acknowledge that i have been encouraged to send valuables and belongings home. ?? Review of Valuable and Belonging List: With witness Possessions released to: mira to endo Date for Pt to Sign Valuables/Belongings: 06/22/25 12:35:00 ?? Valuables & Belongings ?? Clothes Electronic devices Jewelry Monetary Items Personal devices Miscellaneous Medications (Valuables) Valuables at Bedside Jacket, Shoes ? Valuables Sent Home ? Valuables Sent to Security ? Valuables Sent to Locker ? Other Discharge Information ? Case Management Discharge Plan?? Discharge Plan?? Discharge Agency Information?? Discharge Level of Care at Discharge: shelter facility Name of Agency #1: [facility] Discharge Transportation Arranged: [facility] [address] [phone] Additional Info for D/C Instructions: You are being transferred to [facility] today at 11 am. An ambulance will pick you up and bring you there. Mode of Transportation Arranged: Ambulance Name of Person Notified of Transfer: Leah Discharge Arranged Transport Date/Time: 06/29/25 11:00:00 ?? Discharge Nursing Homes/Rehab Facilities: [facility] & [facility] ? Pulmonary Rehab Status?? Pulmonary Rehab Discharge Status?? Respiratory Rate: 18 br/min ? Common Emergency Awareness Tips IS IT A STROKE? Act FAST and Check for these signs: FACE Does the face look uneven? ARM Does one arm drift down? SPEECH Does their speech sound strange? TIME Call at any sign of stroke ?? Heart Attack Signs Chest discomfort: Most heart attacks involve discomfort in the center of the chest and lasts more than a few minutes, or goes away and comes back. It can feel like uncomfortable pressure, squeezing, fullness or pain. Discomfort in upper body: Symptoms can include pain or discomfort in one or both arms, back, neck, jaw or stomach. Shortness of breath: With or without discomfort. Other signs: Breaking out in a cold sweat, nausea, or lightheaded. Remember, MINUTES DO MATTER. If you experience any of these heart attack warning signs, call to get immediate medical attention! ?? Smoking can increase your chances of developing chronic health problems and can cause harmful effects to other family members in your house. If you smoke, you are strongly encouraged to quit. Please call [facility] [employer] Link at [phone] or [phone] ([phone]) or log in to [email or web address] for referrals to smoking cessation programs. ?? 204 Suicide & Crisis Lifeline is available 08/03 if you or someone you know needs to find a reason to keep living. By calling 199 you'll be connected to a skilled, trained counselor at a crisis center in your area. INPATIENT DISCHARGE INSTRUCTIONS SIGNATURE PAGE LESVIAMARGARITA LLOYD Location:[facility] Registration Date and Time:06/15/2025 14:49 EDT Primary Care Physician: Lynette Martinez, Attending Physician: Greta Jean-Baptiste MD, I MARGARITA LAKHANI, have received the above patient education materials/instructions and have verbalized understanding. If ambulance or transport services are being used I further acknowledge being given a choice of service. ?? If you need to contact me, please call me at this number: . Patient/Knitted Goods Shaper Name: Patient/Knitted Goods Shaper Signature: Relationship to Patient: Witness Name/Signature: Date: * Eloise Reynoso RN: PERFORM Event Display: Patient Education Leaflets Authored Date: [id number] Cephalexin ?? [id number] Cephalexin WHY is this medicine prescribed? Cephalexin is used to treat certain infections caused by bacteria such as pneumonia and other respiratory tract infections; and infections of the bone, skin, ears, , genital, and urinary tract. Cephalexin is in a class of medications called cephalosporin antibiotics. It works by killing bacteria. Antibiotics such as cephalexin will not work for colds, flu, or other viral infections. Using antibiotics when they are not needed increases your risk of getting an infection later that resists antibiotic treatment. HOW should this medicine be used? Cephalexin comes as a capsule, tablet, and suspension (liquid) to take by mouth. It is usually taken with or without food every 6 or 12 hours for 7 to 14 days, depending on the condition being treated. Take cephalexin at around the same times every day. Follow the directions on your prescription label carefully, and ask your doctor or pharmacist to explain any part you do not understand. Take cephalexin exactly as directed. Do not take more or less of it or take it more often than prescribed byyour doctor. Shake the liquid well before each use to mix the medication evenly. You should begin to feel better during the first few days of treatment with cephalexin. If your symptoms do not improve or get worse, call your doctor. Continue to take cephalexin until you finish the prescription even if you feel better. If you stop taking cephalexin too soon or skip doses, your infection may not be completely treated and the bacteria may become resistant to antibiotics. Are there OTHER USES for this medicine? Cephalexin is also sometimes used for certain penicillin allergic patients who have a heart condition and are having a dental or upper respiratory tract (nose, mouth, throat, voice box) procedure, inorder to prevent them from developing a heart valve infection. This medication may be prescribed for other uses; ask your doctor or pharmacist for more information. What SPECIAL PRECAUTIONS should I follow? Before taking cephalexin, ??? tell your doctor and pharmacist if you are allergic to cephalexin; other cephalosporin antibiotic such as cefaclor, cefadroxil cefazolin (Ancef, Kefzol), cefdinir, cefditoren (Spectracef), cefepime (Maxipime), cefixime (Suprax), cefotaxime (Claforan), cefotetan, cefoxitin (Mefoxin), cefpodoxime, cefprozil, ceftaroline (Teflaro), ceftazidime (Fortaz, Tazicef, in Avycaz), ceftibuten (Cedax), ceftriaxone (Rocephin), and cefuroxime (Zinacef); penicillin antibiotics; or any other medications. Also tell your doctor if you are allergic to any of the ingredients in cephalexin capsules, tablets, or suspension.Ask your pharmacist for a list of the ingredients. ??? tell your doctor and pharmacist what prescription and nonprescription medications, vitamins, nutritional supplements, and herbal products you are taking or plan to take while taking cephalexin. Your doctor may need to change the doses of your medications or monitor you carefully for side effects. ??? you should know that cephalexin may decrease the effectiveness of hormonal contraceptives ( control pills, patches, rings, and injections). You will need to use another method of contraception to prevent while taking cephalexin. Talk to your doctor about other ways to prevent while you are taking this med ication. ??? tell your doctor if you have or have ever had any kind of allergies, gastrointestinal disease (GI; affecting the stomach or intestines), especially colitis (condition that causes swelling in the lining of the colon [large intestine]), or kidney or liver disease. ??? tell your doctor ifyou are , plan to become , or are breast-feeding. If you become while taking cephalexin, call your doctor. What SPECIAL DIETARY instructions should I follow? Unless your doctor tells you otherwise, continue your normal diet. What should I do IF I FORGET to take a dose? Take the missed dose as soon as you remember it. However, if it is almost time for the next dose, skip the missed dose and continue your regular dosing schedule. Do not take a double dose to make up for a missed one. What SIDE EFFECTS can this medicine cause? Some side effects can be serious. If you experience any of the following symptoms, call your doctorimmediately or get emergency medical treatment: ??? watery or bloody stools, stomach cramps, or fever during treatment or for up to two or more months after stopping treatment ??? rash ??? itching ??? hives ??? swelling of the face, throat, tongue, lips, and eyes ??? difficulty breathing or swallowing ??? wheezing ??? a return of fever, sore throat, chills, or other signs of infection ??? hallucinations (seeing things or hearing voices that donot exist) If you experience a serious side effect, you or your doctor may send a report to the Food and Drug Administration's (FDA) MedWatch Adverse Event Reporting program online (https://www.fda.gov/Safety/MedWatch) or by phone ( ). What should I know about STORAGE and DISPOSAL of this medication? Keep this medication in the container it came in, tightly closed, and out of reach of children. Store the capsules and tablets at room temperature and away from excess heat and moisture (not in the bathroom). Keep liquid medicine in the refrigerator, tightly closed, and dispose of any unused medication after 14 days. . Dispose of unneeded medications in a way so that pets, children, and other people cannot take them.Do not flush this medication down the toilet. Use a medicine take-back program. Talk to your pharmacist about take-back programs in your community. Visit the FDA's Safe Disposal of Medicines website h ttps://goo.gl/c4Rm4p for more information. Keep all medication out of sight and reach of children as many containers are not child-resistant. Always lock safety caps. Place the medication in a safe location ??? one that is up and away and outof their sight and reach. https://www.upandaway.org What should I do in case of OVERDOSE? In case of overdose, call the poison control helpline at . Information is also available online at https://www.poisonhelp.org/help. If the victim has collapsed, had a seizure, has trouble breathing, or can't be awakened, immediately call emergency services at 911. Symptoms of overdose may include: ??? nausea ??? vomiting ??? diarrhea ??? pink, red, or dark brown urine ??? stomach pain What OTHER INFORMATION should I know? Keep all appointments with your doctor and the laboratory. Your doctor may order certain lab tests to check your response to cephalexin. Before having any laboratory test, tell your doctor and the laboratory personnel that you are taking cephalexin. If you are diabetic and test your urine for sugar, use Clinistix or TesTape (not Clinitest) to testyour urine while taking this medication. Do not let anyone else take your medication. Your prescription is probably not refillable. Keep a written list of all of the prescription and nonprescription (uolj-rco-tfgsnhx) medicines, vitamins, minerals, and dietary supplements you are taking. Bring this list with you each time you visit a doctor or if you are admitted to the hospital. You should carry the list with you in case of danette rgencies. Brand Name(s): ??? Keflet?? Tablets? Keflex? Keftab?? Tablets? Panixine?? Disperdose?? also available generically ? This branded product is no longer on the market. Generic alternatives may be available. ?? This report on medications is for your information only, and is not considered individual patient advice. Because of the changing nature of drug information, please consult your physician or pharmacist about specific clinical use. The [employer] [employer] represents that the information provided hereunder was formulated with a reasonable standard of care, and in conformity with professional standards in the field. The [employer] makes no representations or warranties, express or implied, including, but not limited to, any implied warranty of merchantability and/or fitness for a particular purpose, with respect to such information and specifically disclaims all such warranties. Users are advised that decisions regarding drug therapy are complex medical decisions requiring the independent, informed decision of an appropriate health ambulatory care coordinator, and the information is provided for informational purposes only. The entire monograph for a drug should be reviewed for a thorough understanding of the drug's actions, uses and side effects. The [employer] does not endorse or recommend the use of any drug.The information is not a substitute for medical care. AHFS?? Patient Medication Information???. ?? Copyright, 2023. The [employer]??, [address], [address], [place], [place]. All Rights Reserved. Duplication for commercial use must be authorized by [facility]. Selected Revisions: January 29, 2016. AHFS?? Patient Medication Information???. ?? Copyright, 2024 ?? * Eloise Reynoso RN: PERFORM Event Display: Patient Education Leaflets Authored Date: [id number] Spironolactone ?? [id number] Spironolactone IMPORTANT WARNING: Spironolactone has caused tumors in laboratory animals. Talk to your doctor about the risks and benefits of using this medication for your condition. WHY is this medicine prescribed? Spironolactone is used to treat certain patients with hyperaldosteronism (the body produces too much aldosterone, a naturally occurring hormone); low potassium levels; heart failure; and in patients with edema (fluid retention) caused by various conditions, including liver, or kidney disease. It isalso used alone or with other medications to treat high blood pressure. Spironolactone is in a class of medications called aldosterone receptor antagonists. It causes the kidneys to eliminate unneeded water and sodium from the body into the urine but reduces the loss of potassium from the body. High blood pressure is a common condition and when not treated, can cause damage to the brain, heart, blood vessels, kidneys and other parts of the body. Damage to these organs may cause heart disease, a heart attack, heart failure, stroke, kidney failure, loss of vision, and other problems. In addition to taking medication, making lifestyle changes will also help to control your blood pressure. These changes include eating a diet that is low in fat and salt, maintaining a healthy weight, exercising at least 30 minutes most days, not smoking, and using alcohol in moderation. HOW should this medicine be used? Spironolactone comes as a tablet and suspension (liquid; Carospir) to take by mouth. It usually is taken once or twice a day. Take spironolactone suspension consistently either with food or without food each time. Take spironolactone at around the same time(s) every day. Follow the directions on your prescription label carefully, and ask your doctor or pharmacist to explain any part you do not understand. Take spironolactone exactly as directed. Do not take more or less of it or take it more often than prescribed by your doctor. Shake the oral suspension well before each use to mix the medication evenly. Your doctor may start you on a low dose of spironolactone and gradually increase your dose. Spironolactone tablets and suspension release the medication differently in your body and cannot besubstituted for one another. Only take the spironolactone product prescribed by your doctor and do not switch to a different spironolactone product unless your doctor says that you should. Spironolactone controls high blood pressure, edema, heart failure, and hyperaldosteronism but does not cure these conditions. It may take about 2 weeks or longer before the full effect of spironolactone occurs. Continue to take spironolactone even if you feel well. Do not stop taking spironolactonewithout talking to your doctor. Are there OTHER USES for this medicine? Spironolactone also is used in combination with other medicines to treat precocious puberty (a condition causing children to enter puberty too soon, resulting in the development of sexual characteristics in girls usually younger than 8 years of age and in boys usually younger than 9 years of age) or myasthenia gravis (MG, a disease in which the nerves do not function properly and patients may experience weakness; numbness; loss of muscle coordination; and problems with vision, speech, and bladder control). Spironolactone also may be used to treat certain female patients with abnormal facial hair. Talk to your doctor about the possible risks of using this medication for your condition. This medication is sometimes prescribed for other uses; ask your doctor or pharmacist for more information. What SPECIAL PRECAUTIONS should I follow? Before taking spironolactone, ??? tell your doctor and pharmacist if you are allergic to spironolactone; any other medications; or any of the ingredients in spironolactone tablets. Ask your pharmacist for a list of the ingredients. ??? tell your doctor if you are taking eplerenone (Inspra). Your doctor may tell you not to take spironolactone if you are taking this medication. ??? some medications should not be taken with praveena nolactone. Other medications may cause dosing changes or extra monitoring when taken with spironolactone. Make sure you have discussed any medications you are currently taking or plan to take before starting spironolactone with your doctor and pharmacist. Before starting, stopping, or changing any medications while taking spironolactone, please get the advice of your doctor or pharmacist. ??? thefollowing nonprescription products may interact with spironolactone: potassium supplements; nonsteroidal anti-inflammatory drugs (NSAIDS) such as ibuprofen (Advil, Motrin, others) and naproxen (Aleve); acetylsalicylic acid. Be sure to let your doctor and pharmacist know that you are taking these med ications before you start taking spironolactone. Do not start any of these medications while takingspironolactone without discussing with your healthcare provider. ??? tell your doctor if you have Ciro's disease or other conditions that may cause high blood levels of potassium, or kidney disease. Your doctor may tell you not to take spironolactone. ??? tell your doctor if you have liver disease. ??? tell your doctor if you are , or plan to become , or are . If you become while taking spironolactone, call your doctor. ??? if you are having surgery, including dental surgery, tell the doctor or dentist that you are taking spironolactone. ??? you shouldknow that drinking alcohol with this medication may cause dizziness, lightheadedness, and fainting when you get up too quickly from a lying position. Talk to your doctor about drinking alcohol while you are taking spironolactone. What SPECIAL DIETARY instructions should I follow? Follow your doctor's directions for your meals, including advice for a reduced- salt (sodium) diet and daily exercise program. Avoid potassium-containing salt substitutes while you are taking this medication. Talk with your doctor about the amount of potassium-rich foods (e.g., bananas, prunes, raisins, and orange juice) that you may have in your diet. What should I do IF I FORGET to take a dose? Take the missed dose as soon as you remember it. However, if it is almost time for your next dose, skip the missed dose and continue your regular dosing schedule. Do not take a double dose to make upfor a missed one. What SIDE EFFECTS can this medicine cause? Some side effects can be serious. If you experience any of these symptoms, call your doctor immediately: ??? muscle weakness, pain, or cramps ??? pain, burning, numbness, or tingling in the hands or feet ??? inability to move arms or legs ??? changes in heartbeat ??? confusion ??? nausea ??? extreme tiredness ??? dry mouth, thirst, dizziness, unsteadiness, headache, or other signs of dehydration ??? unusual bleeding or bruising ??? lack of energy ??? loss of appetite ??? pain in the upper right partof the stomach ??? yellowing of the skin or eyes ??? flu-like symptoms ??? rash ??? hives ??? itching ??? difficulty breathing or swallowing ??? vomiting blood ??? blood in stools ??? decreased urination ??? fainting If you experience a serious side effect, you or your doctor may send a report to the Food and Drug Administration's (FDA) MedWatch Adverse Event Reporting program online (https://www.fda.gov/Safety/MedWatch) or by phone ( ). What should I know about STORAGE and DISPOSAL of this medication? Keep this medicine in the container it came in, tightly closed, and out of reach of children. Storeit at room temperature and away from excess heat and moisture (not in the bathroom). Keep all medication out of sight and reach of children as many containers are not child-resistant. Always lock safety caps. Place the medication in a safe location ??? one that is up and away and outof their sight and reach. https://www.[employer].org Dispose of unneeded medications in a way so that pets, children, and other people cannot take them.Do not flush this medication down the toilet. Use a medicine take-back program. Talk to your pharmacist about take-back programs in your community. Visit the FDA's Safe Disposal of Medicines website h ttps://goo.gl/c4Rm4p for more information. What should I do in case of OVERDOSE? In case of overdose, call the poison control helpline at . Information is also available online at https://www.poisonhelp.org/help. If the victim has collapsed, had a seizure, has trouble breathing, or can't be awakened, immediately call emergency services at 911. Symptoms of overdose may include the following: ??? drowsiness ??? confusion ??? rash ??? nausea ??? vomiting ??? dizziness ??? diarrhea ??? tingling in arms and legs ??? loss of muscle tone ??? weakness or heaviness in legs ??? irregular or slow heartbeat What OTHER INFORMATION should I know? Keep all appointments with your doctor and the laboratory. Your doctor will order certain lab teststo check your body's response to spironolactone. Before having any laboratory test, tell your doctor and the laboratory personnel that you are taking spironolactone. Do not let anyone else take your medicine. Ask your pharmacist any questions you have about refilling your prescription. Keep a written list of all of the prescription and nonprescription (gcfk-rzf-jpjzdwr) medicines, vitamins, minerals, and dietary supplements you are taking. Bring this list with you each time you visit a doctor or if you are admitted to the hospital. You should carry the list with you in case of danette rgencies. Brand Name(s): ??? Aldactone? Carospir?? also available generically ?? This report on medications is for your information only, and is not considered individual patient advice. Because of the changing nature of drug information, please consult your physician or pharmacist about specific clinical use. [employer] represents that the information provided hereunder was formulated with a reasonable standard of care, and in conformity with professional standards in the field. [employer] makes no representations or warranties, express or implied, including, but not limited to, any implied warranty of merchantability and/or fitness for a particular purpose, with respect to such information and specifically disclaims all such warranties. Users are advised that decisions regarding drug therapy are complex medical decisions requiring the independent, informed decision of an appropriate health ambulatory care coordinator, and the information is provided for informational purposes only. The entire monograph for a drug should be reviewed for a thorough understanding of the drug's actions, uses and side effects. [employer] does not endorse or recommend the use of any drug.The information is not a substitute for medical care. AHFS?? Patient Medication Information???. ?? Copyright, 2023. [employer]??, [address], [address], [place], [place]. All Rights Reserved. Duplication for commercial use must be authorized by [facility]. Selected Revisions: September 30, 2017. AHFS?? Patient Medication Information???. ?? Copyright, 2024 ?? * Eloise Reynoso RN: PERFORM Event Display: Patient Education Leaflets Authored Date: [id number] Dapagliflozin ?? [id number] Dapagliflozin WHY is this medicine prescribed? Dapagliflozin is used ??? to lower blood sugar in people with type 2 diabetes (condition in which blood sugar is too highbecause the body does not make or use insulin normally). ??? to reduce the risk of being hospitalized for heart failure in certain adults with type 2 diabetes ??? to reduce the risk of being hospitalized for heart failure and in adults with heart failure ??? to reduce the risk of worsening ofkidney disease, being hospitalized for heart failure, and in certain adults with kidney disease Dapagliflozin is in a class of medications called sodium-glucose co-transporter 2 (SGLT2) inhibitors. It lowers blood sugar by causing the kidneys to get rid of more glucose in the urine. Dapagliflozin is not used to treat type 1 diabetes (condition in which the body does not produce insulin and, therefore, cannot control the amount of sugar in the blood) or diabetic ketoacidosis (a serious condition that may develop if high blood sugar is not treated). Over time, people who have diabetes and high blood sugar can develop serious or life-threatening complications, including heart disease, stroke, kidney problems, nerve damage, and eye problems. Taking dapagliflozin, making lifestyle changes (e.g., diet, exercise, quitting smoking), and regularly checking your blood sugar may help to manage your diabetes and improve your health. This therapy may also decrease your chances of having a heart attack, stroke, or other diabetes-related complications such as kidney failure, nerve damage (numb, cold legs or feet; decreased sexual ability in men and women), eye problems, including changes or loss of vision, or gum disease. Your doctor and other healt hcare providers will talk to you about the best way to manage your diabetes. HOW should this medicine be used? Dapagliflozin comes as a tablet to take by mouth. Take with or without food once a day. Take dapagliflozin at around the same time every day. Take dapagliflozin exactly as directed. Do not take more or less of it or take it more often than prescribed by your doctor. Your doctor may start you on a low dose of dapagliflozin and increase your dose if needed. Dapagliflozin helps to control your condition but does not cure it. Continue to take dapagliflozin even if you feel well. Do not stop taking dapagliflozin without talking to your doctor. You will be given you the Medication Guide when you begin treatment with dapagliflozin and each time you refill your prescription. Read the information carefully and ask your doctor or pharmacist if you have any questions. You can also visit https://www.fda.gov/Drugs/DrugSafety/wkd604686.htm to obtain the Medication Guide. Are there OTHER USES for this medicine? This medication may be prescribed for other uses; ask your doctor or pharmacist for more information. What SPECIAL PRECAUTIONS should I follow? Before taking dapagliflozin, ??? tell your doctor and pharmacist if you are allergic to this drug, any part of this drug, or anyother drugs, foods or substances. Tell your doctor or pharmacist about the allergy and what symptoms you had. ??? tell your doctor and pharmacist what other prescription and nonprescription medications, vitamins, nutritional supplements, and herbal products you are taking or plan to take. Your doctor may need to change the doses of your medications or monitor you carefully for side effects. ??? tell your doctor if you regularly drink alcohol or sometimes drink large amounts of alcohol in a short time (binge drinking), if you are on a low sodium diet, or if you have an infection. Also tell your doctor if you have or have ever had heart failure, pancreatic disease including pancreatitis or have had surgery on your pancreas, urinary tract infections or problems urinating, low blood pressure,yeast infections in the genital area, or kidney or liver disease. If you are male, tell your doctorif you have never been circumcised. Also, tell your doctor if you are eating or drinking less due to illness, surgery or a change in your diet; if you are following a ketogenic diet (a high fat, low carbohydrate diet); or have recently had diarrhea, vomiting, been in the sun too long, or have been sweating a lot, which may cause dehydration (loss of a large amount of body fluids). ??? tell your doctor if you are , plan to become , or are . Do not breastfeed while you are taking dapagliflozin. If you become while taking dapagliflozin, call your doctor. ???if you are having surgery, including dental surgery, tell the doctor or dentist that you are takingdapagliflozin. Your doctor will probably tell you to stop taking dapagliflozin at least 3 days befor e a surgery. ??? alcohol may cause a change in blood sugar. Ask your doctor about the safe use of alcoholic beverages while you are taking dapagliflozin. ??? you should know that dapagliflozin may cause dizziness, lightheadedness, and fainting when you get up too quickly from a lying position. If you have this problem, call your doctor. This problem is more common when you first start taking dapagliflozin. To avoid this problem, get out of bed slowly, resting your feet on the floor for a few minutes before standing up. ??? ask your doctor what to do if you get sick, develop an infection or fever, experience unusual stress, or are injured. These conditions can affect your blood sugar and theamount of dapagliflozin you may need. What SPECIAL DIETARY instructions should I follow? Be sure to follow all exercise and dietary recommendations made by your doctor or dietitian. It is important to eat a healthful diet and exercise regularly. Follow your doctor's instructions about drinking enough fluids throughout the day while you are on this medication. What should I do IF I FORGET to take a dose? Take the missed dose as soon as you remember it. However, if it is almost time for the next dose, skip the missed dose and continue your regular dosing schedule. Do not take a double dose to make up for a missed one. What SIDE EFFECTS can this medicine cause? Dapagliflozin may cause side effects. Tell your doctor if any of these symptoms are severe or do not go away: ??? urinating a lot, including at night ??? stuffy or runny nose ??? sore throat ??? leg or arm pain ??? constipation Some side effects can be serious. If you experience any of these symptoms, call your doctor immediately: ??? frequent, urgent, burning, or painful urination; urine that is cloudy, red, pink, or brown; strong smelling urine; decrease in amount of urine; fever, back pain, nausea or vomiting ??? dry mouth,dark urine, decreased sweating, dry skin, and other signs of dehydration ??? pelvic or rectal pain ??? (in women) vaginal odor, white or yellowish vaginal discharge (may be lumpy or look like cottage cheese), or vaginal itching ??? (in men) redness, itching, or swelling of the penis; rash on the penis; foul smelling discharge from the penis; or pain in the skin around the penis ??? feeling tired,weak, or uncomfortable; along with a fever and pain, tenderness, redness, and swelling of the genitals or the area between the genitals and the rectum If you experience any of the following symptoms, stop taking dapagliflozin and call your doctor immediately or get emergency medical treatment: ??? rash; hives; itching; difficulty breathing or swallowing; hoarseness; or swelling of the face, throat, tongue, lips, mouth, or eyes If you experience any of the following symptoms of ketoacidosis, stop taking dapagliflozin and callyour doctor immediately or get emergency medical treatment. If possible, check for ketones in your urine if you have these symptoms, even if your blood sugar is less than 250 mg/dL: ??? nausea, vomiting, stomach-area pain, tiredness, or difficulty breathing Dapagliflozin can cause dehydration. It is important that you drink plenty of water while taking dapagliflozin. Talk to your doctor or pharmacist about the right amount of water to drink to prevent dehydration while taking dapagliflozin. Dapagliflozin may cause other side effects. Call your doctor if you have any unusual problems whiletaking this medication. If you experience a serious side effect, you or your doctor may send a report to the Food and Drug Administration's (FDA) MedWatch Adverse Event Reporting program online (https://www.fda.gov/Safety/MedWatch) or by phone ( ). What should I know about STORAGE and DISPOSAL of this medication? Keep this medication in the container it came in, tightly closed, and out of reach of children. Store it at room temperature and away from excess heat and moisture (not in the bathroom). What should I do in case of OVERDOSE? In case of overdose, call the poison control helpline at . Information is also available online at https://www.poisonhelp.org/help. If the victim has collapsed, had a seizure, has trouble breathing, or can't be awakened, immediately call emergency services at 031. What OTHER INFORMATION should I know? Keep all appointments with your doctor and the laboratory. Your doctor will probably order certain laboratory test before and during your treatment to check your body's response to dapagliflozin. Your blood sugar levels should be checked regularly to determine your response to dapagliflozin. Your doctor will order other lab tests, including glycosylated hemoglobin (HbA1c), to check your response to dapagliflozin. Your doctor will also tell you how to check your response to this medication by measuring your blood sugar levels at home. Follow these instructions carefully. Before having any laboratory test, tell your doctor and the laboratory personnel that you are taking dapagliflozin. Because of the way this medication works, your urine may test positive for glucose. You should always wear a diabetic identification bracelet to be sure you get proper treatment in anemergency. Do not let anyone else take your medication. Ask your pharmacist any questions you have about refilling your prescription. Keep a written list of all of the prescription and nonprescription (xoww-vop-ukvvoes) medicines, vitamins, minerals, and dietary supplements you are taking. Bring this list with you each time you visit a doctor or if you are admitted to the hospital. You should carry the list with you in case of danette rgencies. Brand Name(s): ??? Farxiga? Qtern?? (as a combination product containing Dapagliflozin, Saxagliptin) ??? Qternmet?? XR (as a combination product containing Dapagliflozin, Metformin, Saxagliptin)? Xigduo?? XR (as a combination product containing Dapagliflozin, Metformin) ? This branded product is no longer on the market. Generic alternatives may be available. ?? This report on medications is for your information only, and is not considered individual patient advice. Because of the changing nature of drug information, please consult your physician or pharmacist about specific clinical use. [employer] represents that the information provided hereunder was formulated with a reasonable standard of care, and in conformity with professional standards in the field. [employer] makes no representations or warranties, express or implied, including, but not limited to, any implied warranty of merchantability and/or fitness for a particular purpose, with respect to such information and specifically disclaims all such warranties. Users are advised that decisions regarding drug therapy are complex medical decisions requiring the independent, informed decision of an appropriate health ambulatory care coordinator, and the information is provided for informational purposes only. The entire monograph for a drug should be reviewed for a thorough understanding of the drug's actions, uses and side effects. [employer] does not endorse or recommend the use of any drug.The information is not a substitute for medical care. AHFS?? Patient Medication Information???. ?? Copyright, 2023. [employer]??, [address], [address], [place], [place]. All Rights Reserved. Duplication for commercial use must be authorized by [facility]. Selected Revisions: February 27, 2025. AHFS?? Patient Medication Information???. ?? Copyright, 2024 ?? Patient Care team information Care Team Personnel Name: Dwayne Arenas RN Position: [facility] RN Member Role: Primary Care Nurse Name: Joan Zambrano RN Position: [facility] RN Member Role: Primary Care Nurse Name: Pilar Marques RN Position: [facility] RN Member Role: Primary Care Nurse Name: Mark Anthony Díaz RN Position: S RN Member Role: Primary Care Nurse Name: Meliza Box RN Position: S RN Member Role: Primary Care Nurse Name: Galindo Jade RN Position: [facility] RN Member Role: Primary Care Nurse Name: Eloise Sadler RN Position: [facility] RN Member Role: Primary Care Nurse Name: Delfino Franz RN Position: [facility] RN Member Role: Primary Care Nurse Name: Nessa Tom RN Position: [facility] RN Member Role: Primary Care Nurse Name: Lili Flores RN Position: [facility] RN Member Role: Primary Care Nurse Name: Gwyn Gallegos RN Position: [facility] RN Member Role: Primary Care Nurse Name: Santa Waller RN Position: [facility] RN Member Role: Primary Care Nurse Name: Yashira Arnold Position: [facility] [place] Disaster Recovery Specialist Member Role: Solar System Installer Name: Karli Wilson RN Position: [facility] RN Member Role: Primary Care Nurse Name: Gennaro Oliver RN Position: [facility] SN RN Member Role: Primary Care Nurse Name: Chela Kidd RN Position: [facility] RN Member Role: Primary Care Nurse Name: Vivi Gil RN Position: [facility] RN Member Role: Primary Care Nurse Name: Lynette Martinez Position: [facility] PCO Associate Professional Member Role: PCP Address: [address] [place] [address] [address] Telecom: Name: Dionne Bhatt RN Position: [facility] RN Member Role: Primary Care Nurse Name: Monalisa Ragsdale RN Position: [facility] RN Member Role: Primary Care Nurse Name: Delmy Taveras RN Position: [facility] RN Member Role: Primary Care Nurse Name: Sonja Ng LPN Position: [facility] RN Member Role: Primary Care Nurse Care Team Related Persons Name: PARAS LAKHANI Name: BLUE BRIONES Name: LEAH SCHAEFER Insurance Providers Guarantor name: MARGARITA LESVIAFormerly [facility] Information #: 1 Payer: [employer] MEDICARE ADV HMO Payer Identifier: TONY Member Number: [id number] Group Number: [id number] Subscriber Identifier: [id number] Relationship to Subscriber: self Coverage Type: Medicare HMO Coverage Verification Date: Telecom: NA Address:
[2025-07-02 06:14] LABS: MANUAL DIFF FLAG NO
--- OUTSIDE RECORDS SUMMARY | 2025-07-02 06:14 | XMS_ITS | Encounter Summary ---
[facility] [place] [address] Care Team Providers Care Forder Operator Name Role Phone Lei Lawton MD Primary Care Provider +1- [phone] Encounter Details Date Type Department Care Team (Late st Contact Info) Description 09/28/2024 Lab Requisition [facility] - Main Lab [address] [facility] [place] [address] Lei Lawton MD [address] [place] [address] Weakness; Shortness of breath Social History Tobacco Use Types Packs/Day Years Used Date Smoking Tobacco: Never Smokeless Tobacco: Never Comments Unknown Sex and Gender Information Value Date Recorded Sex Assigned at Not on file Legal Sex Female 10:23 AM EST Gender Identity Not on file Sexual Orientation Not on file documented as of this encounter Plan of Treatment Not on file documented as of this encounter Procedures Procedure Name Priority Date/Time Associated Diagnosis Comments B-TYPE NATRIURETIC PEPTIDE Routine 09/28/2024 5:33 AM EST Weakness Shortness of breath MAGNESIUM Routine 09/28/2024 5:33 AM EST Weakness Shortness of breath BASIC METABOLIC PANEL Routine 09/28/2024 5:33 AM EST Weakness Shortness of breath documented in this encounter Results * Magnesium (09/28/2024 5:33 AM EST) Magnesium 2.0 1.9 - 2.6 mg/dL LAB CHEMISTRY METHOD 09/28/2024 12:51 PM EST [facility] Blood Venous blood specimen / Unknown Venipuncture / Unknown 09/28/2024 5:33 AM EST 09/28/2024 11:37 AM EST Lei Lawton MD LAB BLOOD ORDERABLES Final Result Performing Organization Address City/[facility]/ZIP Co de Phone Number [facility] [address] [place] [address], [place] [phone] * (ABNORMAL) B-type natriuretic peptide (09/28/2024 5:33 AM EST) BNP 254(H) <=100 pcg/mL LAB CHEMISTRY METHOD 09/28/2024 12:52 PM [facility] Blood Venous blood specimen / Unknown Venipuncture / Unknown 09/28/2024 5:33 AM EST 09/28/2024 11:37 AM EST Lei Lawton MD LAB BLOOD ORDERABLES Final Result Performing Organization Address City/[facility]/ZIP Co de Phone Number [facility] [address] [place] [address], [place] [phone] * (ABNORMAL) Basic metabolic panel (09/28/2024 5:33 AM EST) Sodium 133 133 - 145 mmol/L LAB CHEMISTRY METHOD 09/28/2024 12:51 PM [facility] Potassium 3.7 3.5 - 5.5 mmol/L LAB CHEMISTRY METHOD 09/28/2024 12:51 PM [facility] Chloride 100 96 - 110 mmol/L LAB CHEMISTRY METHOD 09/28/2024 12:51 PM [facility] CO2 27 21 - 32 mmol/L LAB CHEMISTRY METHOD 09/28/2024 12:51 PM [facility] Anion Gap 6 3 - 11 LAB CHEMISTRY METHOD 09/28/2024 12:51 PM [facility] Glucose 80 70 - 100 mg/dL LAB CHEMISTRY METHOD 09/28/2024 12:51 PM [facility] BUN 8 5 - 25 mg/dL LAB CHEMISTRY METHOD 09/28/2024 12:51 PM [facility] Creatinine 0.53 0.50 - 1.10 mg/dL LAB CHEMISTRY METHOD 09/28/2024 12:51 PM [facility] eGFR 94 >=60 mL/min/1. 73m2 LAB CHEMISTRY METHOD 09/28/2024 12:51 PM [facility] Comment:Calculation based on the Chronic Kidney Disease Epidemiology Collaboration (CKD-EPI) equation refit without adjustment for race. BUN/Creatinine Ratio 15.1 LAB CHEMISTRY METHOD 09/28/2024 12:51 PM [facility] Calcium 8.3(L) 8.5 - 10.5 mg/dL LAB CHEMISTRY METHOD 09/28/2024 12:51 PM [facility] Blood Venous blood specimen / Unknown Venipuncture / Unknown 09/28/2024 5:33 AM EST 09/28/2024 11:37 AM EST us Lei Lawton MD LAB BLOOD ORDERABLES Final Result [facility] [address] [place] [address], documented in this encounter Visit Diagnoses Diagnosis Weakness Other malaise and fatigue Shortness of breath documented in this encounter Care Teams Forder Operator Relationship Specialty Start Date End Date Lei Lawton MD [address] [place] [id number] PCP - General Internal Medicine 08/14/24 documented as of this encounter
--- OUTSIDE RECORDS SUMMARY | 2025-07-02 06:14 | XMS_ITS | Encounter Summary ---
Author Organization [facility] Address [address] [place] [address] Care Team Providers Care Commercial Diver Name Role Phone Lei Lawton MD Primary Care Provider +1- [phone] Encounter Details Date Type Department Care Team (Late st Contact Info) Description 09/16/2024 Lab Requisition [facility] - Main Lab 299 [facility] [place] [address] Lei Lawton MD [address] [place] [address] Gastro-esophageal reflux disease without esophagitis; Unspecified atrial fibrillation (CMS/HCC V24, CMS/HCC V28); Essential (primary) hypertension Social History Tobacco Use Types Packs/Day Years [...] Procedure Name Priority Date/Time Associated Diagnosis Comments COMPLETE BLOOD COUNT Routine 09/18/2024 7:36 AM EST Gastro-esophageal reflux disease without esophagitis Unspecified atrial fibrillation (CMS/HCC) Essential (primary) hypertension BASIC METABOLIC PANEL Routine 09/18/2024 7:36 AM EST Gastro-esophageal reflux disease without esophagitis Unspecified atrial fibrillation (CMS/HCC) Essential (primary) hypertension documented in this encounter Results * (ABNORMAL) Basic metabolic panel (09/18/2024 7:36 AM EST) Sodium 133 133 - 145 mmol/L LAB CHEMISTRY METHOD 09/18/2024 4:34 PM [facility] Potassium 3.9 3.5 - 5.5 mmol/L LAB CHEMISTRY METHOD 09/18/2024 4:34 PM [facility] Chloride 102 96 - 110 mmol/L LAB CHEMISTRY METHOD 09/18/2024 4:34 PM [facility] CO2 24 21 - 32 mmol/L LAB CHEMISTRY METHOD 09/18/2024 4:34 PM [facility] Anion Gap 7 3 - 11 LAB CHEMISTRY METHOD 09/18/2024 4:34 PM [facility] Glucose 90 70 - 100 mg/dL LAB CHEMISTRY METHOD 09/18/2024 4:34 PM [facility] BUN 7 5 - 25 mg/dL LAB CHEMISTRY METHOD 09/18/2024 4:34 PM [facility] Creatinine 0.43(L) 0.50 - 1.10 mg/dL LAB CHEMISTRY METHOD 09/18/2024 4:34 PM [facility] eGFR 99 >=60 mL/min/1. 73m2 LAB CHEMISTRY METHOD 09/18/2024 4:34 PM [facility] Comment:Calculation based on the Chronic Kidney Disease Epidemiology Collaboration (CKD-EPI) equation refit without adjustment for race. BUN/Creatinine Ratio 16.3 LAB CHEMISTRY METHOD 09/18/2024 4:34 PM [facility] Calcium 8.3(L) 8.5 - 10.5 mg/dL LAB CHEMISTRY METHOD 09/18/2024 4:34 PM [facility] Blood Venous blood specimen / Unknown Venipuncture / Unknown 09/18/2024 7:36 AM EST 09/18/2024 11:59 AM EST us Lei Lawton MD LAB BLOOD ORDERABLES Final Result [facility] [address] [place] [address], * (ABNORMAL) Complete blood count (09/18/2024 7:36 AM EST) WBC 4.1(L) 4.8 - 10.8 K/mcL LAB HEMETOLOGY METHOD 09/18/2024 2:00 PM [facility] RBC 3.80 3.80 - 4.80 M/mcL LAB HEMETOLOGY METHOD 09/18/2024 2:00 PM [facility] Hemoglobin 11.7 11.5 - 16.0 g/dL LAB HEMETOLOGY METHOD 09/18/2024 2:00 PM [facility] Hematocrit 35.7 35.0 - 47.0 % LAB HEMETOLOGY METHOD 09/18/2024 2:00 PM [facility] MCV 94.7 79.0 - 98.0 FL LAB HEMETOLOGY METHOD 09/18/2024 2:00 PM [facility] MCH 31.0 27.0 - 32.0 pcg LAB HEMETOLOGY METHOD 09/18/2024 2:00 PM [facility] MCHC 32.8 32.0 - 37.0 g/dL LAB HEMETOLOGY METHOD 09/18/2024 2:00 PM [facility] RDW 13.8 11.0 - 15.0 % LAB HEMETOLOGY METHOD 09/18/2024 2:00 PM [facility] Platelets 241 130 - 400 K/mcL LAB HEMETOLOGY METHOD 09/18/2024 2:00 PM [facility] MPV 8.7 7.0 - 11.0 FL LAB HEMETOLOGY METHOD 09/18/2024 2:00 PM [facility] NRBC 0.0 <1.0 % LAB HEMETOLOGY METHOD 09/18/2024 2:00 PM EST [facility] NRBC Absolute 0.00 <0.10 K/mcL LAB HEMETOLOGY METHOD 09/18/2024 2:00 PM EST [facility] Blood Venous blood specimen / Unknown Venipuncture / Unknown 09/18/2024 7:36 AM EST 09/18/2024 11:59 AM EST Lei Lawton MD LAB BLOOD ORDERABLES Final Result [facility] [address] [place] [address], documented in this encounter Visit Diagnoses Diagnosis Gastro-esophageal reflux disease without esophagitis Unspecified atrial fibrillation (CMS/HCC V24, CMS/HCC V28) Essential (primary) hypertension Unspecified essential hypertension documented in this encounter Care Teams Commercial Diver Relationship Specialty Start Date End Date Lei Lawton MD [address] [place] [phone] PCP - General Internal Medicine 08/14/24 documented as of this encounter
--- OUTSIDE RECORDS SUMMARY | 2025-07-02 06:14 | XMS_ITS | Encounter Summary ---
Author Organization [facility] Address [address] [place] [address] Care Team Providers Care Flatbed Stitcher Name Role Phone Lei Lawton MD Primary Care Provider +1- [phone] Encounter Details Date Type Department Care Team (Late st Contact Info) Description 10/01/2024 Lab Requisition [facility] - Main Lab 299 [facility] [place] [address] Lei Lawton MD [address] [place] [address] Essential (primary) hypertension; Unspecified atrial fibrillation (CMS/HCC V24, CMS/HCC V28); Gastro-esophageal reflux disease without esophagitis Social History Tobacco Use Types Packs/Day Years Used Date Smoking Tobacco: Never Smokeless Tobacco: Never Comments Unknown Sex and Gender Information Value Date Recorded Sex Assigned at Not on file Legal Sex Female 10:23 AM EST Gender Identity Not on file Sexual Orientation Not on file documented as of this encounter Plan of Treatment Not on file documented as of this encounter Visit Diagnoses Diagnosis Essential (primary) hypertension Unspecified essential hypertension Unspecified atrial fibrillation (CMS/HCC V24, CMS/HCC V28) Gastro-esophageal reflux disease without esophagitis documented in this encounter Care Teams Flatbed Stitcher Relationship Specialty Start Date End Date Lei Lawton MD [address] [place] [address] PCP - General Internal Medicine 08/14/24 documented as of this encounter
--- OUTSIDE RECORDS SUMMARY | 2025-07-02 06:14 | XMS_ITS | Encounter Summary ---
Author Organization [facility] Address [address] [place] [address] Care Team Providers Care Insurance Attorney Name Role Phone Lei Lawton MD Primary Care Provider +1- [phone] Encounter Details Date Type Department Care Team (Late st Contact Info) Description 09/24/2024 Lab Requisition [facility] - Main Lab 299 [facility] [place] [address] Lei Lawton MD [address] [place] [address] Essential (primary) hypertension; Unspecified atrial fibrillation (CMS/HCC [...] Associated Diagnosis Comments COMPLETE BLOOD COUNT Routine 09/25/2024 8:40 AM EST Essential (primary) hypertension Unspecified atrial fibrillation (CMS/HCC) Gastro-esophageal reflux disease without esophagitis BASIC METABOLIC PANEL Routine 09/25/2024 8:40 AM EST Essential (primary) hypertension Unspecified atrial fibrillation (CMS/HCC) Gastro-esophageal reflux disease without esophagitis documented in this encounter Results * (ABNORMAL) Basic metabolic panel (09/25/2024 8:40 AM EST) Sodium 131(L) 133 - 145 mmol/L LAB CHEMISTRY METHOD 09/25/2024 1:12 PM [facility] Potassium 4.3 3.5 - 5.5 mmol/L LAB CHEMISTRY METHOD 09/25/2024 1:12 PM [facility] Chloride 99 96 - 110 mmol/L LAB CHEMISTRY METHOD 09/25/2024 1:12 PM [facility] CO2 25 21 - 32 mmol/L LAB CHEMISTRY METHOD 09/25/2024 1:12 PM [facility] Anion Gap 7 3 - 11 LAB CHEMISTRY METHOD 09/25/2024 1:12 PM [facility] Glucose 118(H) 70 - 100 mg/dL LAB CHEMISTRY METHOD 09/25/2024 1:12 PM [facility] BUN 8 5 - 25 mg/dL LAB CHEMISTRY METHOD 09/25/2024 1:12 PM [facility] Creatinine 0.53 0.50 - 1.10 mg/dL LAB CHEMISTRY METHOD 09/25/2024 1:12 PM [facility] eGFR 94 >=60 mL/min/1. 73m2 LAB CHEMISTRY METHOD 09/25/2024 1:12 PM [facility] Comment:Calculation based on the Chronic Kidney Disease Epidemiology Collaboration (CKD-EPI) equation refit without adjustment for race. BUN/Creatinine Ratio 15.1 LAB CHEMISTRY METHOD 09/25/2024 1:12 PM [facility] Calcium 8.4(L) 8.5 - 10.5 mg/dL LAB CHEMISTRY METHOD 09/25/2024 1:12 PM [facility] Blood Venous blood specimen / Unknown Venipuncture / Unknown 09/25/2024 8:40 AM EST 09/25/2024 11:11 AM EST us Lei Lawton MD LAB BLOOD ORDERABLES Final Result [facility] [address] [place] [address], * (ABNORMAL) Complete blood count (09/25/2024 8:40 AM EST) [facility] Signature WBC 3.8(L) 4.8 - 10.8 K/mcL LAB HEMETOLOGY METHOD 09/25/2024 2:09 PM [facility] RBC 3.50(L) 3.80 - 4.80 M/mcL LAB HEMETOLOGY METHOD 09/25/2024 2:09 PM [facility] Hemoglobin 10.9(L) 11.5 - 16.0 g/dL LAB HEMETOLOGY METHOD 09/25/2024 2:09 PM [facility] Hematocrit 33.6(L) 35.0 - 47.0 % LAB HEMETOLOGY METHOD 09/25/2024 2:09 PM EST [facility] MCV 96.3 79.0 - 98.0 FL LAB HEMETOLOGY METHOD 09/25/2024 2:09 PM [facility] MCH 31.2 27.0 - 32.0 pcg LAB HEMETOLOGY METHOD 09/25/2024 2:09 PM [facility] MCHC 32.4 32.0 - 37.0 g/dL LAB HEMETOLOGY METHOD 09/25/2024 2:09 PM [facility] RDW 13.9 11.0 - 15.0 % LAB HEMETOLOGY METHOD 09/25/2024 2:09 PM [facility] Platelets 202 130 - 400 K/mcL LAB HEMETOLOGY METHOD 09/25/2024 2:09 PM [facility] MPV 9.0 7.0 - 11.0 FL LAB HEMETOLOGY METHOD 09/25/2024 2:09 PM [facility] NRBC 0.0 <1.0 % LAB HEMETOLOGY METHOD 09/25/2024 2:09 PM EST [facility] NRBC Absolute 0.00 <0.10 K/mcL LAB HEMETOLOGY METHOD 09/25/2024 2:09 PM EST [facility] Blood Venous blood specimen / Unknown Venipuncture / Unknown 09/25/2024 8:40 AM EST 09/25/2024 11:11 AM EST us Lei Lawton MD LAB BLOOD ORDERABLES Final Result [facility] [address] [place] [address], documented in this encounter Visit Diagnoses Diagnosis Essential (primary) hypertension Unspecified essential hypertension Unspecified atrial fibrillation (CMS/HCC V24, CMS/HCC V28) Gastro-esophageal reflux disease without esophagitis documented in this encounter Care Teams Insurance Attorney Relationship Specialty Start Date End Date Lei Lawton MD [address] [place] [phone] PCP - General Internal Medicine 08/14/24 documented as of this encounter
--- OUTSIDE RECORDS SUMMARY | 2025-07-02 06:14 | XMS_ITS | Encounter Summary ---
Author Organization [facility] Address [address] [place] [address] Care Team Providers Care Cognos Bi Developer Name Role Phone Lei Lawton MD Primary Care Provider +1- [phone] Encounter Details Date Type Department Care Team (Late st Contact Info) Description 09/16/2024 Lab Requisition [facility] - Main Lab [address] [facility] [place] [address] Lei Lawton MD [address] [place] [address] Gastro-esophageal reflux disease without esophagitis; Unspecified atrial [...] as of this encounter Visit Diagnoses Diagnosis Gastro-esophageal reflux disease without esophagitis Unspecified atrial fibrillation (CMS/HCC V24, CMS/HCC V28) Essential (primary) hypertension Unspecified essential hypertension documented in this encounter Care Teams Cognos Bi Developer Relationship Specialty Start Date End Date Lei Lawton MD [address] [place] [address] PCP - General Internal Medicine 08/14/24 documented as of this encounter
--- OUTSIDE RECORDS SUMMARY | 2025-07-02 06:15 | XMS_ITS | Encounter Summary ---
Author Organization [facility] Address [address] [place] [address] Care Team Providers Care Last Puller Name Role Phone Lei Lawton MD Primary Care Provider +1- [phone] Encounter Details Date Type Department Care Team (Late st Contact Info) Description 08/26/2024 Lab Requisition [facility] - Main Lab 299 [facility] [place] [address] Lei Lawton MD [address] [place] [address] Gastro-esophageal reflux disease without esophagitis; Unspecified atrial [...] Associated Diagnosis Comments COMPLETE BLOOD COUNT Routine 08/28/2024 8:14 AM EST Gastro-esophageal reflux disease without esophagitis Unspecified atrial fibrillation (CMS/HCC) Essential (primary) hypertension BASIC METABOLIC PANEL Routine 08/28/2024 8:14 AM EST Gastro-esophageal reflux disease without esophagitis Unspecified atrial fibrillation (CMS/HCC) Essential (primary) hypertension documented in this encounter Results * (ABNORMAL) Basic metabolic panel (08/28/2024 8:14 AM EST) Sodium 132(L) 133 - 145 mmol/L LAB CHEMISTRY METHOD 08/28/2024 12:15 PM [facility] Potassium 4.3 3.5 - 5.5 mmol/L LAB CHEMISTRY METHOD 08/28/2024 12:15 PM [facility] Chloride 100 96 - 110 mmol/L LAB CHEMISTRY METHOD 08/28/2024 12:15 PM [facility] CO2 25 21 - 32 mmol/L LAB CHEMISTRY METHOD 08/28/2024 12:15 PM [facility] Anion Gap 7 3 - 11 LAB CHEMISTRY METHOD 08/28/2024 12:15 PM [facility] Glucose 108(H) 70 - 100 mg/dL LAB CHEMISTRY METHOD 08/28/2024 12:15 PM [facility] BUN 8 5 - 25 mg/dL LAB CHEMISTRY METHOD 08/28/2024 12:15 PM [facility] Creatinine 0.47(L) 0.50 - 1.10 mg/dL LAB CHEMISTRY METHOD 08/28/2024 12:15 PM [facility] eGFR 97 >=60 mL/min/1. 73m2 LAB CHEMISTRY METHOD 08/28/2024 12:15 PM [facility] Comment:Calculation based on the Chronic Kidney Disease Epidemiology Collaboration (CKD-EPI) equation refit without adjustment for race. BUN/Creatinine Ratio 17.0 LAB CHEMISTRY METHOD 08/28/2024 12:15 PM [facility] Calcium 8.0(L) 8.5 - 10.5 mg/dL LAB CHEMISTRY METHOD 08/28/2024 12:15 PM [facility] Blood Venous blood specimen / Unknown Venipuncture / Unknown 08/28/2024 8:14 AM EST 08/28/2024 11:10 AM EST us Lei Lawton MD LAB BLOOD ORDERABLES Final Result [facility] [address] [place] [address], * (ABNORMAL) Complete blood count (08/28/2024 8:14 AM EST) WBC 6.3 4.8 - 10.8 K/mcL LAB HEMETOLOGY METHOD 08/28/2024 11:41 AM [facility] RBC 3.20(L) 3.80 - 4.80 M/mcL LAB HEMETOLOGY METHOD 08/28/2024 11:41 AM [facility] Hemoglobin 10.3(L) 11.5 - 16.0 g/dL LAB HEMETOLOGY METHOD 08/28/2024 11:41 AM [facility] Hematocrit 32.4(L) 35.0 - 47.0 % LAB HEMETOLOGY METHOD 08/28/2024 11:41 AM [facility] MCV 102.9(H) 79.0 - 98.0 FL LAB HEMETOLOGY METHOD 08/28/2024 11:41 AM [facility] MCH 32.7(H) 27.0 - 32.0 pcg LAB HEMETOLOGY METHOD 08/28/2024 11:41 AM [facility] MCHC 31.8(L) 32.0 - 37.0 g/dL LAB HEMETOLOGY METHOD 08/28/2024 11:41 AM [facility] RDW 14.2 11.0 - 15.0 % LAB HEMETOLOGY METHOD 08/28/2024 11:41 AM [facility] Platelets 315 130 - 400 K/mcL LAB HEMETOLOGY METHOD 08/28/2024 11:41 AM [facility] MPV 8.7 7.0 - 11.0 FL LAB HEMETOLOGY METHOD 08/28/2024 11:41 AM EST [facility] NRBC 0.0 <1.0 % LAB HEMETOLOGY METHOD 08/28/2024 11:41 AM EST [facility] NRBC Absolute 0.00 <0.10 K/mcL LAB HEMETOLOGY METHOD 08/28/2024 11:41 AM EST [facility] Blood Venous blood specimen / Unknown Venipuncture / Unknown 08/28/2024 8:14 AM EST 08/28/2024 11:03 AM EST us Lei Lawton MD LAB BLOOD ORDERABLES Final Result [facility] [address] [place] [address], documented in this encounter Visit Diagnoses Diagnosis Gastro-esophageal reflux disease without esophagitis Unspecified atrial fibrillation (CMS/HCC V24, CMS/HCC V28) Essential (primary) hypertension Unspecified essential hypertension documented in this encounter Care Teams Last Puller Relationship Specialty Start Date End Date Lei Lawton MD [address] [place] [id number] PCP - General Internal Medicine 08/14/24 documented as of this encounter
--- OUTSIDE RECORDS SUMMARY | 2025-07-02 06:15 | XMS_ITS | Clinical Summary ---
Author Organization [address] [facility] Address [address] [place] [address] Phone Care Team Providers Care Wharfmaster Name Role Phone Lei Lawton MD Primary Care Provider +1- [phone] Medical History Medical History Date Comments Cataract 02/04/2017 DX:Cataract Actinic keratosis 04/01/2017 DX:Actinic ker atosis; COMMENT: Right forehead, s/p cyrosurgery Social History Tobacco Use Types Packs/Day Years Used Date Smoking Tobacco: Never Smokeless Tobacco: Never Comments Unknown Sex and Gender Information Value Date Recorded Sex Assigned at Not on file Legal Sex Female 10:23 AM EST Gender Identity Not on file Sexual Orientation Not on file Obstetrics History Plan of Treatment Health Maintenance Due Date Last Done Comments Hepatitis A Vaccines (1 of 2 - Risk 2-dose series) 1964 Zoster Vaccines (1 of 2) 1995 Hepatitis B Vaccines (1 of 3 - Risk 3-dose series) 2005 Pneumococcal Vaccine: 50+ Years (2 of 2 - PCV) 08/04/2013 08/04/2012 RSV Immunization Adult Patients (1 - 1-dose 75+ series) 2020 Cholesterol Screening (Lipid Panel) 08/14/2024 Falls Risk Assessment 08/14/2024 Osteoporosis Screening (Bone Density Screening) 08/14/2024 Social Influencers of Health Screening 08/14/2024 Depression Screening 08/16/2024 COVID-19 Vaccine ( season) 2025 11/25/2021, 05/12/2021, 10/19/2020, Additional history exists Influenza Vaccine (#1) 2025 , 04/30/2022, 05/19/2021, Additional history exists Hypertension/CHF/CAD Annual BMP Blood Test 09/28/2025 09/28/2024, 09/25/2024, 09/18/2024, Additional history exists DTaP,Tdap,and Td Vaccines (2 - Td or Tdap) 06/15/2034 06/15/2024 HIB Vaccines Aged Out No longer eligi ble based on patient's age to complete this topic HPV Vaccines Aged Out No longer eligi ble based on patient's age to complete this topic IPV Vaccines Aged Out No longer eligi ble based on patient's age to complete this topic MMR Vaccines Aged Out No longer eligi ble based on patient's age to complete this topic Meningococcal ACWY Vaccine Aged Out N o longer eligible based on patient's age to complete this topic Meningococcal B Vaccine Aged Out No l onger eligible based on patient's age to complete this topic RSV Immunization Patients Under 20 months Aged Out No longer eligible based on patient's age to complete this topic Varicella Vaccines Aged Out No longer eligible based on patient's age to complete this topic Procedures Procedure Name Priority Date/Time Associated Diagnosis Comments BASIC METABOLIC PANEL Routine 09/28/2024 5:33 AM EST Weakness Shortness of breath from Last 3 Months or Most Recently Relevant to Health Maintenance Results * (ABNORMAL) Basic metabolic panel (09/28/2024 5:33 AM EST) Sodium 133 133 - 145 mmol/L LAB CHEMISTRY METHOD 09/28/2024 12:51 PM [facility] Potassium 3.7 3.5 - 5.5 mmol/L LAB CHEMISTRY METHOD 09/28/2024 12:51 PM [facility] Chloride 100 96 - 110 mmol/L LAB CHEMISTRY METHOD 09/28/2024 12:51 PM [facility] CO2 27 21 - 32 mmol/L LAB CHEMISTRY METHOD 09/28/2024 12:51 PM [facility] Anion Gap 6 3 - 11 LAB CHEMISTRY METHOD 09/28/2024 12:51 PM [facility] Glucose 80 70 - 100 mg/dL LAB CHEMISTRY METHOD 09/28/2024 12:51 PM EST [facility] BUN 8 5 - 25 mg/dL LAB CHEMISTRY METHOD 09/28/2024 12:51 PM [facility] Creatinine 0.53 0.50 - 1.10 mg/dL LAB CHEMISTRY METHOD 09/28/2024 12:51 PM [facility] eGFR 94 >=60 mL/min/1. 73m2 LAB CHEMISTRY METHOD 09/28/2024 12:51 PM [facility] Comment:Calculation based on the Chronic Kidney Disease Epidemiology Collaboration (CKD-EPI) equation refit without adjustment for race. BUN/Creatinine Ratio 15.1 LAB CHEMISTRY METHOD 09/28/2024 12:51 PM [facility] Calcium 8.3(L) 8.5 - 10.5 mg/dL LAB CHEMISTRY METHOD 09/28/2024 12:51 PM [facility] Blood Venous blood specimen / Unknown Venipuncture / Unknown 09/28/2024 5:33 AM EST 09/28/2024 11:37 AM EST Lei Lawton MD LAB BLOOD ORDERABLES Final Result [facility] [address] [place] [address], from Last 3 Months or Most Recently Relevant to Health Maintenance Insurance [facility] MEDICAID ADVANTAGE [address] [place] [address] Care Teams Wharfmaster Relationship Specialty Start Date End Date Lei Lawton MD [address] [place] [address] PCP - General Internal Medicine 08/14/24
--- OUTSIDE RECORDS SUMMARY | 2025-07-02 06:15 | XMS_ITS | Patient Health Record ---
Author Organization [facility] Address [address] [place] [address] Care Team Providers Care Art Psychotherapist Name Role Phone Hua HORN, Aleta Primary Care Provider J Luis Mehta Jr Unavailable [phone] Allergies Allergen (clinical drug ingredient) Drug/Non Drug Allergy documented on EMR Reaction Allergy Type Onset Date Status codeine Codeine Sulfate Unknown Drug Allergy A ctive Reason For Referral No Information Medications Medication SIG (Take, Route, Frequency, Duration) Notes Start Date End Date Status PreserVision AREDS - Tablet as directed Orally Active Carvedilol 3.125 MG Tablet 1 tablet with food Orally Twice a day; Duration: 30 day(s) Active Flecainide Acetate 100 MG Tablet TAKE 1 TABLET BY MOUTH EVERY 12 HOURS Orally Active Ursodiol 500 MG Tablet TAKE 1 TABLET BY MOUTH TWICE A DAY; Duration: 90 Active Fito Forte 500 MG Tablet 1 Orally b.i.d. ; Duration: 90 days 12/11/2011 Active Immunizations Vaccine Route Administration Date Status Comme nts Influenza Unknown 03/20/2020 Refused Influenza Unknown 05/19/2021 Administered Influenza Unknown 06/23/2022 Administered Social History Social History Drugs/Alcohol: Social Info Question Answer Notes Alcohol Screen Did you have a drink containing alcohol in the past year? Yes How often did you have a drink containing alcohol in the past year? 2 to 3 times a week (3 points) How many drinks did you have on a typical day when you were drinking in the past year? 1 or 2 drinks (0 point) How often did you have 6 or more drinks on one occasion in the past year? Never (0 point) Points 3 Interpretation Positive Additional Details Category Social Info Options Details Miscellaneous: Marital status: Occupation: retired Problems Problem Type SNOMED Code ICD Code Onset Dates Problem Status W/U Status Risk Notes Problem Colon cancer screening (701400579) Colon cancer screening (Z12.11) Active confirmed Problem Rectal bleeding (23651621) Rectal bleeding (K62.5) Active confirmed Problem Primary biliary cirrhosis (84075404) Primary biliary cirrhosis (K74.3) Active confirmed Problem Abnormal findings diagnostic imaging of liver and biliary tract (229460128) Abnormal x-ray of liver (R93.2) Active confirmed Problem Biliary cirrhosis (9093943) Biliary cirrhosis (K74.5) Active confirmed Plan Of Treatment Pending Test Test Name Order Date LIVER PROFILE 07/08/2022 LIVER PROFILE 02/03/2023 CBC w/o DIFF 02/03/2023 CBC w/o DIFF 07/08/2022 PROTHROMBIN TIME (PT, INR) 07/08/2022 PROTHROMBIN TIME (PT, INR) 02/03/2023 MRI ABD W&WO CONTRAST 07/22/2021 US ABD 02/03/2023 TSH REFLEX FREE T4 02/03/2023 Liver Fibrosis Pnl 07/08/2022 Future Test Test Name Order Date LIVER PROFILE 08/26/2011 COLONOSCOPY 11/25/2017 Insurance Providers Payer Name Payer Address Payer Phone Subscriber Number Group Number Insured Name Patient Relationship to Insured Coverage Start Date Coverage End Date [facility] [address] [place] [address] [id number] RODDY LAKHANI Self - patient is the insured Medical (General) History Medical History History ICD Code hypertension elevated Cholesterol biliary cirrhosis squamous cell carcinoma, forehead Atrial fibrillation status post ablation and watchman placement. colonoscopy 02/23/18, tubular adenomas x2, five-year followup optional based on age Macular degeneration Covid 19 infection 2020 Surgical History Surgery Date(Month/Year) appendectomy tubal ligation right knee replacement cataract-lens implants---right eye cardiac ablation 01/2020
--- OUTSIDE RECORDS SUMMARY | 2025-07-02 06:15 | XMS_ITS | Encounter Summary ---
Author Organization [facility] Address [address] [place] [address] Care Team Providers Care Integrated Circuits Inspector Name Role Phone Lei Lawton MD Primary Care Provider +1- [phone] Encounter Details Date Type Department Care Team (Late st Contact Info) Description 08/14/2024 Lab Requisition [facility] - Main Lab [address] [place] [address] Lei Lawton MD [address] [place] [address] Unspecified atrial fibrillation (CMS/HCC V24, CMS/HCC V28); [...] Associated Diagnosis Comments COMPLETE BLOOD COUNT Routine 08/14/2024 7:25 AM EST Unspecified atrial fibrillation (CMS/HCC) Essential (primary) hypertension COMPREHENSIVE METABOLIC PANEL Routine 08/14/2024 7:25 AM EST Unspecified atrial fibrillation (CMS/HCC) Essential (primary) hypertension documented in this encounter Results * (ABNORMAL) Comprehensive metabolic panel (08/14/2024 7:25 AM EST) Sodium 135 133 - 145 mmol/L LAB CHEMISTRY METHOD 08/14/2024 12:20 PM [facility] Potassium 3.7 3.5 - 5.5 mmol/L LAB CHEMISTRY METHOD 08/14/2024 12:20 PM [facility] Chloride 102 96 - 110 mmol/L LAB CHEMISTRY METHOD 08/14/2024 12:20 PM [facility] CO2 24 21 - 32 mmol/L LAB CHEMISTRY METHOD 08/14/2024 12:20 PM [facility] Anion Gap 9 3 - 11 LAB CHEMISTRY METHOD 08/14/2024 12:20 PM [facility] Glucose 86 70 - 100 mg/dL LAB CHEMISTRY METHOD 08/14/2024 12:20 PM [facility] BUN 14 5 - 25 mg/dL LAB CHEMISTRY METHOD 08/14/2024 12:20 PM [facility] Creatinine 0.53 0.50 - 1.10 mg/dL LAB CHEMISTRY METHOD 08/14/2024 12:20 PM [facility] eGFR 94 >=60 mL/min/1. 73m2 LAB CHEMISTRY METHOD 08/14/2024 12:20 PM [facility] Comment:Calculation based on the Chronic Kidney Disease Epidemiology Collaboration (CKD-EPI) equation refit without adjustment for race. BUN/Creatinine Ratio 26.4 LAB CHEMISTRY METHOD 08/14/2024 12:20 PM [facility] Calcium 8.2(L) 8.5 - 10.5 mg/dL LAB CHEMISTRY METHOD 08/14/2024 12:20 PM [facility] AST (SGOT) 20 10 - 42 unit/L LAB CHEMISTRY METHOD 08/14/2024 12:20 PM [facility] ALT (SGPT) 16 10 - 60 unit/L LAB CHEMISTRY METHOD 08/14/2024 12:20 PM [facility] Alkaline Phosphatase 137(H) 42 - 121 unit/L LAB CHEMISTRY METHOD 08/14/2024 12:20 PM [facility] Total Protein 5.3(L) 6.0 - 8.0 g/dL LAB CHEMISTRY METHOD 08/14/2024 12:20 PM [facility] Albumin 2.6(L) 3.2 - 5.0 g/dL LAB CHEMISTRY METHOD 08/14/2024 12:20 PM [facility] Total Bilirubin 1.8(H) 0.0 - 1.4 mg/dL LAB CHEMISTRY METHOD 08/14/2024 12:20 PM [facility] Blood Venous blood specimen / Unknown Venipuncture / Unknown 08/14/2024 7:25 AM EST 08/14/2024 10:59 AM EST us Lei Lawton MD LAB BLOOD ORDERABLES Final Result [facility] [address] [place] [address], * (ABNORMAL) Complete blood count (08/14/2024 7:25 AM EST) WBC 6.6 4.8 - 10.8 K/mcL LAB HEMETOLOGY METHOD 08/14/2024 11:47 AM [facility] RBC 3.20(L) 3.80 - 4.80 M/mcL LAB HEMETOLOGY METHOD 08/14/2024 11:47 AM [facility] Hemoglobin 10.8(L) 11.5 - 16.0 g/dL LAB HEMETOLOGY METHOD 08/14/2024 11:47 AM [facility] Hematocrit 33.5(L) 35.0 - 47.0 % LAB HEMETOLOGY METHOD 08/14/2024 11:47 AM [facility] MCV 105.0(H) 79.0 - 98.0 FL LAB HEMETOLOGY METHOD 08/14/2024 11:47 AM [facility] MCH 33.9(H) 27.0 - 32.0 pcg LAB HEMETOLOGY METHOD 08/14/2024 11:47 AM EST [facility] MCHC 32.2 32.0 - 37.0 g/dL LAB HEMETOLOGY METHOD 08/14/2024 11:47 AM [facility] RDW 13.6 11.0 - 15.0 % LAB HEMETOLOGY METHOD 08/14/2024 11:47 AM EST [facility] Platelets 265 130 - 400 K/mcL LAB HEMETOLOGY METHOD 08/14/2024 11:47 AM [facility] MPV 9.5 7.0 - 11.0 FL LAB HEMETOLOGY METHOD 08/14/2024 11:47 AM [facility] NRBC 0.0 <1.0 % LAB HEMETOLOGY METHOD 08/14/2024 11:47 AM [facility] NRBC Absolute 0.00 <0.10 K/mcL LAB HEMETOLOGY METHOD 08/14/2024 11:47 AM [facility] Blood Venous blood specimen / Unknown Venipuncture / Unknown 08/14/2024 7:25 AM EST 08/14/2024 10:59 AM EST Lei Lawton MD LAB BLOOD ORDERABLES Final Result [facility] [address] [place] [address], documented in this encounter Visit Diagnoses Diagnosis Unspecified atrial fibrillation (CMS/HCC V24, CMS/HCC V28) Essential (primary) hypertension Unspecified essential hypertension documented in this encounter Care Teams Integrated Circuits Inspector Relationship Specialty Start Date End Date Lei Lawton MD [address] [place] [address] PCP - General Internal Medicine 08/14/24 documented as of this encounter
--- OUTSIDE RECORDS SUMMARY | 2025-07-02 06:15 | XMS_ITS | Encounter Summary ---
Author Organization [facility] Address [address] [place] [address] Care Team Providers Care Lighting Fixture Installer Name Role Phone Lei Lawton MD Primary Care Provider +1- [phone] Encounter Details Date Type Department Care Team (Late st Contact Info) Description 09/09/2024 Lab Requisition [facility] - Main Lab [address] [facility] [place] [address] Lei Lawton MD [address] [place] [address] Gastro-esophageal reflux disease without esophagitis; Unspecified atrial [...] Associated Diagnosis Comments COMPLETE BLOOD COUNT Routine 09/11/2024 7:33 AM EST Gastro-esophageal reflux disease without esophagitis Unspecified atrial fibrillation (CMS/HCC) Essential (primary) hypertension BASIC METABOLIC PANEL Routine 09/11/2024 7:33 AM EST Gastro-esophageal reflux disease without esophagitis Unspecified atrial fibrillation (CMS/HCC) Essential (primary) hypertension documented in this encounter Results * (ABNORMAL) Basic metabolic panel (09/11/2024 7:33 AM EST) Sodium 132(L) 133 - 145 mmol/L LAB CHEMISTRY METHOD 09/11/2024 11:36 AM [facility] Potassium 4.0 3.5 - 5.5 mmol/L LAB CHEMISTRY METHOD 09/11/2024 11:36 AM [facility] Chloride 102 96 - 110 mmol/L LAB CHEMISTRY METHOD 09/11/2024 11:36 AM [facility] CO2 24 21 - 32 mmol/L LAB CHEMISTRY METHOD 09/11/2024 11:36 AM [facility] Anion Gap 6 3 - 11 LAB CHEMISTRY METHOD 09/11/2024 11:36 AM [facility] Glucose 85 70 - 100 mg/dL LAB CHEMISTRY METHOD 09/11/2024 11:36 AM [facility] BUN 8 5 - 25 mg/dL LAB CHEMISTRY METHOD 09/11/2024 11:36 AM [facility] Creatinine 0.47(L) 0.50 - 1.10 mg/dL LAB CHEMISTRY METHOD 09/11/2024 11:36 AM [facility] eGFR 97 >=60 mL/min/1. 73m2 LAB CHEMISTRY METHOD 09/11/2024 11:36 AM [facility] Comment:Calculation based on the Chronic Kidney Disease Epidemiology Collaboration (CKD-EPI) equation refit without adjustment for race. BUN/Creatinine Ratio 17.0 LAB CHEMISTRY METHOD 09/11/2024 11:36 AM [facility] Calcium 8.3(L) 8.5 - 10.5 mg/dL LAB CHEMISTRY METHOD 09/11/2024 11:36 AM [facility] Blood Venous blood specimen / Unknown Venipuncture / Unknown 09/11/2024 7:33 AM EST 09/11/2024 10:46 AM EST us Lei Lawton MD LAB BLOOD ORDERABLES Final Result [facility] [address] [place] [address], * (ABNORMAL) Complete blood count (09/11/2024 7:33 AM EST) [facility] [employer] [facility] Signature WBC 5.3 4.8 - 10.8 K/mcL LAB HEMETOLOGY METHOD 09/11/2024 11:37 AM [facility] RBC 3.50(L) 3.80 - 4.80 M/mcL LAB HEMETOLOGY METHOD 09/11/2024 11:37 AM [facility] Hemoglobin 10.8(L) 11.5 - 16.0 g/dL LAB HEMETOLOGY METHOD 09/11/2024 11:37 AM [facility] Hematocrit 33.8(L) 35.0 - 47.0 % LAB HEMETOLOGY METHOD 09/11/2024 11:37 AM [facility] MCV 97.1 79.0 - 98.0 FL LAB HEMETOLOGY METHOD 09/11/2024 11:37 AM [facility] MCH 31.0 27.0 - 32.0 pcg LAB HEMETOLOGY METHOD 09/11/2024 11:37 AM [facility] MCHC 32.0 32.0 - 37.0 g/dL LAB HEMETOLOGY METHOD 09/11/2024 11:37 AM [facility] RDW 13.8 11.0 - 15.0 % LAB HEMETOLOGY METHOD 09/11/2024 11:37 AM [facility] Platelets 269 130 - 400 K/mcL LAB HEMETOLOGY METHOD 09/11/2024 11:37 AM [facility] MPV 8.5 7.0 - 11.0 FL LAB HEMETOLOGY METHOD 09/11/2024 11:37 AM [facility] NRBC 0.0 <1.0 % LAB HEMETOLOGY METHOD 09/11/2024 11:37 AM EST [facility] NRBC Absolute 0.00 <0.10 K/mcL LAB HEMETOLOGY METHOD 09/11/2024 11:37 AM EST [facility] Blood Venous blood specimen / Unknown Venipuncture / Unknown 09/11/2024 7:33 AM EST 09/11/2024 10:50 AM EST us Lei Lawton MD LAB BLOOD ORDERABLES Final Result [facility] [address] [place] [address], documented in this encounter Visit Diagnoses Diagnosis Gastro-esophageal reflux disease without esophagitis Unspecified atrial fibrillation (CMS/HCC V24, CMS/HCC V28) Essential (primary) hypertension Unspecified essential hypertension documented in this encounter Care Teams Lighting Fixture Installer Relationship Specialty Start Date End Date Lei Lawton MD [address] [place] [address] PCP - General Internal Medicine 08/14/24 documented as of this encounter
--- OUTSIDE RECORDS SUMMARY | 2025-07-02 06:15 | XMS_ITS | Encounter Summary ---
Author Organization [facility] Address [address] [place] [address] Care Team Providers Care Drill Press Operator Helper Name Role Phone Lei Lawton MD Primary Care Provider +1- [phone] Encounter Details Date Type Department Care Team (Late st Contact Info) Description 09/03/2024 Lab Requisition [facility] - Main Lab [address] [facility] [place] [address] Lei Lawton MD [address] [place] [address] Gastro-esophageal reflux disease without esophagitis; Unspecified atrial [...] Associated Diagnosis Comments COMPLETE BLOOD COUNT Routine 09/04/2024 8:57 AM EST Gastro-esophageal reflux disease without esophagitis Unspecified atrial fibrillation (CMS/HCC) Essential (primary) hypertension BASIC METABOLIC PANEL Routine 09/04/2024 8:57 AM EST Gastro-esophageal reflux disease without esophagitis Unspecified atrial fibrillation (CMS/HCC) Essential (primary) hypertension documented in this encounter Results * (ABNORMAL) Basic metabolic panel (09/04/2024 8:57 AM EST) Sodium 136 133 - 145 mmol/L LAB CHEMISTRY METHOD 09/04/2024 2:54 PM [facility] Potassium 3.8 3.5 - 5.5 mmol/L LAB CHEMISTRY METHOD 09/04/2024 2:54 PM [facility] Chloride 103 96 - 110 mmol/L LAB CHEMISTRY METHOD 09/04/2024 2:54 PM [facility] CO2 26 21 - 32 mmol/L LAB CHEMISTRY METHOD 09/04/2024 2:54 PM [facility] Anion Gap 7 3 - 11 LAB CHEMISTRY METHOD 09/04/2024 2:54 PM [facility] Glucose 126(H) 70 - 100 mg/dL LAB CHEMISTRY METHOD 09/04/2024 2:54 PM [facility] BUN 4(L) 5 - 25 mg/dL LAB CHEMISTRY METHOD 09/04/2024 2:54 PM [facility] Creatinine 0.53 0.50 - 1.10 mg/dL LAB CHEMISTRY METHOD 09/04/2024 2:54 PM [facility] eGFR 94 >=60 mL/min/1. 73m2 LAB CHEMISTRY METHOD 09/04/2024 2:54 PM [facility] Comment:Calculation based on the Chronic Kidney Disease Epidemiology Collaboration (CKD-EPI) equation refit without adjustment for race. BUN/Creatinine Ratio 7.5 LAB CHEMISTRY METHOD 09/04/2024 2:54 PM [facility] Calcium 7.8(L) 8.5 - 10.5 mg/dL LAB CHEMISTRY METHOD 09/04/2024 2:54 PM [facility] Blood Venous blood specimen / Unknown Venipuncture / Unknown 09/04/2024 8:57 AM EST 09/04/2024 12:18 PM EST us Lei Lawton MD LAB BLOOD ORDERABLES Final Result [facility] [address] [place] [address], * (ABNORMAL) Complete blood count (09/04/2024 8:57 AM EST) [facility] WBC 5.0 4.8 - 10.8 K/mcL LAB HEMETOLOGY METHOD 09/04/2024 1:50 PM EST [facility] RBC 3.70(L) 3.80 - 4.80 M/mcL LAB HEMETOLOGY METHOD 09/04/2024 1:50 PM EST [facility] Hemoglobin 11.7 11.5 - 16.0 g/dL LAB HEMETOLOGY METHOD 09/04/2024 1:50 PM EST [facility] Hematocrit 37.5 35.0 - 47.0 % LAB HEMETOLOGY METHOD 09/04/2024 1:50 PM EST [facility] MCV 101.6(H) 79.0 - 98.0 FL LAB HEMETOLOGY METHOD 09/04/2024 1:50 PM EST [facility] MCH 31.7 27.0 - 32.0 pcg LAB HEMETOLOGY METHOD 09/04/2024 1:50 PM EST [facility] MCHC 31.2(L) 32.0 - 37.0 g/dL LAB HEMETOLOGY METHOD 09/04/2024 1:50 PM EST [facility] RDW 14.1 11.0 - 15.0 % LAB HEMETOLOGY METHOD 09/04/2024 1:50 PM EST [facility] Platelets 313 130 - 400 K/mcL LAB HEMETOLOGY METHOD 09/04/2024 1:50 PM EST [facility] MPV 8.5 7.0 - 11.0 FL LAB HEMETOLOGY METHOD 09/04/2024 1:50 PM EST [facility] NRBC 0.0 <1.0 % LAB HEMETOLOGY METHOD 09/04/2024 1:50 PM EST [facility] NRBC Absolute 0.00 <0.10 K/mcL LAB HEMETOLOGY METHOD 09/04/2024 1:50 PM EST [facility] Blood Venous blood specimen / Unknown Venipuncture / Unknown 09/04/2024 8:57 AM EST 09/04/2024 12:18 PM EST us Lei Lawton MD LAB BLOOD ORDERABLES Final Result [facility] [address] [place] [address], documented in this encounter Visit Diagnoses Diagnosis Gastro-esophageal reflux disease without esophagitis Unspecified atrial fibrillation (CMS/HCC V24, CMS/HCC V28) Essential (primary) hypertension Unspecified essential hypertension documented in this encounter Care Teams Drill Press Operator Helper Relationship Specialty Start Date End Date Lei Lawton MD [address] [place] [id number] PCP - General Internal Medicine 08/14/24 documented as of this encounter
--- OUTSIDE RECORDS SUMMARY | 2025-07-02 06:15 | XMS_ITS | Encounter Summary ---
Author Organization [facility] Address [address] [place] [address] Care Team Providers Care Sizing Machine Tender Name Role Phone Lei Lawton MD Primary Care Provider +1- [phone] Encounter Details Date Type Department Care Team (Late st Contact Info) Description 08/18/2024 Lab Requisition [facility] - Main Lab [address] [facility] [place] [address] Lei Lawton MD [address] [place] [address] Gastro-esophageal reflux disease without esophagitis; Unspecified atrial [...] hypertension documented in this encounter Care Teams Sizing Machine Tender Relationship Specialty Start Date End Date Lei Lawton MD [address] [place] [address] PCP - General Internal Medicine 08/14/24 documented as of this encounter
--- OUTSIDE RECORDS SUMMARY | 2025-07-02 06:15 | XMS_ITS | Clinical Summary ---
Author Organization [facility] Address [address] [place] [address] Care Team Providers Care Records Administrator Name Role Phone Unavailable Primary Care Provider Unavailabl e Social History Tobacco Use Types Packs/Day Years Used Date Smoking Tobacco: Never Assessed Sex and Gender Information Value Date Recorded Sex Assigned at Not on file Gender Identity Not on file Sexual Orientation Not on file Plan of Treatment Not on file
[2025-07-02 06:42] LABS: Hematocrit 29.5 % (37.0-47.0); Hemoglobin 8.7 g/dl (12.0-16.0); Imm Gran Abs Auto 0.02 X10*3/uL (0.00-0.03); Imm Gran Pct Auto 0.3 % (0.0-0.4); Lymphocytes Absolute Auto 1.2 X10*3/uL (1.2-4.9); Mean Corpuscular HGB Conc 29.5 g/dl (31.0-35.0); Mean Corpuscular Hemoglobin 26.1 pg (27.0-33.0); Mean Corpuscular Volume 88.6 fL (80.0-98.0); NRBC Abs Auto 0.000 X10*3/uL (0.0-0.012); NRBC Pct Auto 0.0 /100WBC (0.0-0.2); Platelet Count 242 X10*3/uL (160-400); Red Blood Count 3.33 X10*6/uL (4.20-5.50); White Blood Count 6.6 X10*3/uL (4.8-10.8)
[2025-07-02 06:52] LABS: Alanine Aminotransferase 7 U/L (0-31); Albumin Level 3.4 g/dL (3.5-5.0); Alkaline Phosphatase 101 U/L (39-117); Anion Gap 14 (12-20); Aspartate Amino Transferase 24 U/L (5-31); Blood Urea Nitrogen 23 mg/dL (9-16); Calcium 8.0 mg/dL (8.4-10.2); Carbon Dioxide 24 mmol/L (22-29); Chloride 105 mmol/L (96-108); Estimated Glomerular Filt Rate 33; Potassium 3.1 mmol/L (3.3-5.1); Sodium 140 mmol/L (135-145); Total Protein 6.1 g/dL (6.5-8.0)
== END 2025-07-02 06:11 | disposition home or self-care (01) ==
LOC: HO.MMNH2L 06:10
PROVIDERS: Visit Provider Physician Assistant Medical
DX: Z13.1 Encounter for screening for diabetes mellitus (principal)
CPT/HCPCS: 36415; 80053; 83036; 85025

== ENCOUNTER 2025-07-06 06:57 | Outpatient (REF) | payer MEDICARE, SELFPAY ==
--- OUTSIDE RECORDS SUMMARY | 2025-07-06 07:00 | XMS_ITS | Clinical Summary ---
Author Organization [facility] Address [address] [place] [address] Phone Care Team Providers Care Petal Shaper Hand Name Role Phone Lei Lawton MD Primary Care Provider +1- [phone] Medical History Medical History Date Comments Cataract [...] mmol/L LAB CHEMISTRY METHOD 09/28/2024 12:51 PM [facility] Potassium 3.7 3.5 - 5.5 mmol/L LAB CHEMISTRY METHOD 09/28/2024 12:51 PM [facility] Chloride 100 96 - 110 mmol/L LAB CHEMISTRY METHOD 09/28/2024 12:51 PM [facility] CO2 27 21 - 32 mmol/L LAB CHEMISTRY METHOD 09/28/2024 12:51 PM [facility] Anion Gap 6 3 - 11 LAB CHEMISTRY METHOD 09/28/2024 12:51 PM [facility] Glucose 80 70 - 100 mg/dL LAB CHEMISTRY METHOD 09/28/2024 12:51 PM EST [facility] BUN 8 5 - 25 mg/dL LAB CHEMISTRY METHOD 09/28/2024 12:51 PM [facility] Creatinine 0.53 0.50 - 1.10 mg/dL LAB CHEMISTRY METHOD 09/28/2024 12:51 PM [facility] eGFR 94 >=60 mL/min/1. 73m2 LAB CHEMISTRY METHOD 09/28/2024 12:51 PM [facility] Comment:Calculation based on the Chronic Kidney Disease Epidemiology Collaboration (CKD-EPI) equation refit without adjustment for race. BUN/Creatinine Ratio 15.1 LAB CHEMISTRY METHOD 09/28/2024 12:51 PM [facility] Calcium 8.3(L) 8.5 - 10.5 mg/dL LAB CHEMISTRY METHOD 09/28/2024 12:51 PM [facility] Blood Venous blood specimen / Unknown Venipuncture / Unknown 09/28/2024 5:33 AM EST 09/28/2024 11:37 AM EST Lei Lawton MD LAB BLOOD ORDERABLES Final Result [facility] [address] [place] [address], from Last 3 Months or Most Recently Relevant to Health Maintenance Insurance [facility] MEDICAID ADVANTAGE [address] [place] [address] Care Teams Petal Shaper Hand Relationship Specialty Start Date End Date Lei Lawton MD [address] [place] [address] PCP - General Internal Medicine 08/14/24
--- OUTSIDE RECORDS SUMMARY | 2025-07-06 07:00 | XMS_ITS | Patient Health Record ---
Author Organization [facility] Address [address] [place] [address] Care Team Providers Care Television News Photographer Name Role Phone Hua HORN, Aleta Primary Care Provider J Luis Mehta Jr Unavailable [phone] Allergies Allergen (clinical drug ingredient) Drug/Non Drug [...] Status Risk Notes Problem Colon cancer screening (573087397) Colon cancer screening (Z12.11) Active confirmed Problem Rectal bleeding (79366875) Rectal bleeding (K62.5) Active confirmed Problem Primary biliary cirrhosis (37136925) Primary biliary cirrhosis (K74.3) Active confirmed Problem Abnormal findings diagnostic imaging of liver and biliary tract (000467889) Abnormal x-ray of liver (R93.2) Active confirmed Problem Biliary cirrhosis (4179645) Biliary cirrhosis (K74.5) Active confirmed Plan Of [...] Insured Coverage Start Date Coverage End Date [facility] [address] [place] [address] [phone] [id number] RODDY LAKHANI Self - patient is the [...]
--- OUTSIDE RECORDS SUMMARY | 2025-07-06 07:00 | XMS_ITS | Encounter Summary ---
Author Organization [facility] Address [address] [place] [address] Care Team Providers Care Fire Control Officer Name Role Phone Lei Lawton MD Primary Care Provider +1- [phone] Encounter Details Date Type Department Care Team (Late st Contact Info) Description 09/24/2024 Lab Requisition [facility] - Main Lab [address] [facility] [place] [address] Lei Lawton MD [address] [place] [address] Essential (primary) hypertension; Unspecified atrial fibrillation (CMS/HCC [...] mmol/L LAB CHEMISTRY METHOD 09/25/2024 1:12 PM [facility] Potassium 4.3 3.5 - 5.5 mmol/L LAB CHEMISTRY METHOD 09/25/2024 1:12 PM [facility] Chloride 99 96 - 110 mmol/L LAB CHEMISTRY METHOD 09/25/2024 1:12 PM [facility] CO2 25 21 - 32 mmol/L LAB CHEMISTRY METHOD 09/25/2024 1:12 PM [facility] Anion Gap 7 3 - 11 LAB CHEMISTRY METHOD 09/25/2024 1:12 PM [facility] Glucose 118(H) 70 - 100 mg/dL LAB CHEMISTRY METHOD 09/25/2024 1:12 PM [facility] BUN 8 5 - 25 mg/dL LAB CHEMISTRY METHOD 09/25/2024 1:12 PM [facility] Creatinine 0.53 0.50 - 1.10 mg/dL LAB CHEMISTRY METHOD 09/25/2024 1:12 PM [facility] eGFR 94 >=60 mL/min/1. 73m2 LAB CHEMISTRY METHOD 09/25/2024 1:12 PM [facility] Comment:Calculation based on the Chronic Kidney Disease Epidemiology Collaboration (CKD-EPI) equation refit without adjustment for race. BUN/Creatinine Ratio 15.1 LAB CHEMISTRY METHOD 09/25/2024 1:12 PM [facility] Calcium 8.4(L) 8.5 - 10.5 mg/dL LAB CHEMISTRY METHOD 09/25/2024 1:12 PM [facility] Blood Venous blood specimen / Unknown Venipuncture / Unknown 09/25/2024 8:40 AM EST 09/25/2024 11:11 AM EST us Lei Lawton MD LAB BLOOD ORDERABLES Final Result [facility] [address] [place] [address], * (ABNORMAL) Complete blood count (09/25/2024 8:40 AM EST) [facility] Signature WBC 3.8(L) 4.8 - 10.8 K/mcL LAB HEMETOLOGY METHOD 09/25/2024 2:09 PM [facility] RBC 3.50(L) 3.80 - 4.80 M/mcL LAB HEMETOLOGY METHOD 09/25/2024 2:09 PM [facility] Hemoglobin 10.9(L) 11.5 - 16.0 g/dL LAB HEMETOLOGY METHOD 09/25/2024 2:09 PM [facility] Hematocrit 33.6(L) 35.0 - 47.0 % LAB HEMETOLOGY METHOD 09/25/2024 2:09 PM EST [facility] MCV 96.3 79.0 - 98.0 FL LAB HEMETOLOGY METHOD 09/25/2024 2:09 PM [facility] MCH 31.2 27.0 - 32.0 pcg LAB HEMETOLOGY METHOD 09/25/2024 2:09 PM [facility] MCHC 32.4 32.0 - 37.0 g/dL LAB HEMETOLOGY METHOD 09/25/2024 2:09 PM [facility] RDW 13.9 11.0 - 15.0 % LAB HEMETOLOGY METHOD 09/25/2024 2:09 PM [facility] Platelets 202 130 - 400 K/mcL LAB HEMETOLOGY METHOD 09/25/2024 2:09 PM [facility] MPV 9.0 7.0 - 11.0 FL LAB HEMETOLOGY METHOD 09/25/2024 2:09 PM [facility] NRBC 0.0 <1.0 % LAB HEMETOLOGY METHOD 09/25/2024 2:09 PM EST [facility] NRBC Absolute 0.00 <0.10 K/mcL LAB HEMETOLOGY METHOD 09/25/2024 2:09 PM EST [facility] Blood Venous blood specimen / Unknown Venipuncture / Unknown 09/25/2024 8:40 AM EST 09/25/2024 11:11 AM EST us Lei Lawton MD LAB BLOOD ORDERABLES Final Result [facility] [address] [place] [address], documented in this encounter Visit Diagnoses Diagnosis Essential (primary) hypertension Unspecified essential hypertension Unspecified atrial fibrillation (CMS/HCC V24, CMS/HCC V28) Gastro-esophageal reflux disease without esophagitis documented in this encounter Care Teams Fire Control Officer Relationship Specialty Start Date End Date Lei Lawton MD [address] [place] [address] PCP - General Internal Medicine 08/14/24 documented as of this encounter
--- OUTSIDE RECORDS SUMMARY | 2025-07-06 07:00 | XMS_ITS | Encounter Summary ---
Author Organization [facility] Address [address] [place] [address] Care Team Providers Care Customer Support Technician Name Role Phone Lei Lawton MD Primary Care Provider +1- [phone] Encounter Details Date Type Department Care Team (Late st Contact Info) Description 09/16/2024 Lab Requisition [facility] - Main Lab [address] [facility] [place] [address] Lei Lawton MD [address] [place] [address] Gastro-esophageal reflux disease without esophagitis; Unspecified atrial [...] hypertension documented in this encounter Care Teams Customer Support Technician Relationship Specialty Start Date End Date Lei Lawton MD [address] [place] [address] PCP - General Internal Medicine 08/14/24 documented as of this encounter
--- OUTSIDE RECORDS SUMMARY | 2025-07-06 07:00 | XMS_ITS | Encounter Summary ---
Author Organization [facility] Address [address] [place] [address] Care Team Providers Care Disability Representative Name Role Phone Lei Lawton MD Primary Care Provider +1- [phone] Encounter Details Date Type Department Care Team (Late st Contact Info) Description 09/09/2024 Lab Requisition [facility] - Main Lab [address] [facility] [place] [address] Lei Lawton MD [address] [place] [address] Gastro-esophageal reflux disease without esophagitis; Unspecified atrial [...] mmol/L LAB CHEMISTRY METHOD 09/11/2024 11:36 AM [facility] Potassium 4.0 3.5 - 5.5 mmol/L LAB CHEMISTRY METHOD 09/11/2024 11:36 AM [facility] Chloride 102 96 - 110 mmol/L LAB CHEMISTRY METHOD 09/11/2024 11:36 AM [facility] CO2 24 21 - 32 mmol/L LAB CHEMISTRY METHOD 09/11/2024 11:36 AM [facility] Anion Gap 6 3 - 11 LAB CHEMISTRY METHOD 09/11/2024 11:36 AM [facility] Glucose 85 70 - 100 mg/dL LAB CHEMISTRY METHOD 09/11/2024 11:36 AM [facility] BUN 8 5 - 25 mg/dL LAB CHEMISTRY METHOD 09/11/2024 11:36 AM [facility] Creatinine 0.47(L) 0.50 - 1.10 mg/dL LAB CHEMISTRY METHOD 09/11/2024 11:36 AM [facility] eGFR 97 >=60 mL/min/1. 73m2 LAB CHEMISTRY METHOD 09/11/2024 11:36 AM [facility] Comment:Calculation based on the Chronic Kidney Disease Epidemiology Collaboration (CKD-EPI) equation refit without adjustment for race. BUN/Creatinine Ratio 17.0 LAB CHEMISTRY METHOD 09/11/2024 11:36 AM [facility] Calcium 8.3(L) 8.5 - 10.5 mg/dL LAB CHEMISTRY METHOD 09/11/2024 11:36 AM [facility] Blood Venous blood specimen / Unknown Venipuncture / Unknown 09/11/2024 7:33 AM EST 09/11/2024 10:46 AM EST us Lei Lawton MD LAB BLOOD ORDERABLES Final Result [facility] [address] [place] [address], * (ABNORMAL) Complete blood count (09/11/2024 7:33 AM EST) [facility] Signature WBC 5.3 4.8 - 10.8 K/mcL LAB HEMETOLOGY METHOD 09/11/2024 11:37 AM [facility] RBC 3.50(L) 3.80 - 4.80 M/mcL LAB HEMETOLOGY METHOD 09/11/2024 11:37 AM [facility] Hemoglobin 10.8(L) 11.5 - 16.0 g/dL LAB HEMETOLOGY METHOD 09/11/2024 11:37 AM [facility] Hematocrit 33.8(L) 35.0 - 47.0 % LAB HEMETOLOGY METHOD 09/11/2024 11:37 AM [facility] MCV 97.1 79.0 - 98.0 FL LAB HEMETOLOGY METHOD 09/11/2024 11:37 AM [facility] MCH 31.0 27.0 - 32.0 pcg LAB HEMETOLOGY METHOD 09/11/2024 11:37 AM [facility] MCHC 32.0 32.0 - 37.0 g/dL LAB HEMETOLOGY METHOD 09/11/2024 11:37 AM [facility] RDW 13.8 11.0 - 15.0 % LAB HEMETOLOGY METHOD 09/11/2024 11:37 AM [facility] Platelets 269 130 - 400 K/mcL LAB HEMETOLOGY METHOD 09/11/2024 11:37 AM [facility] MPV 8.5 7.0 - 11.0 FL LAB HEMETOLOGY METHOD 09/11/2024 11:37 AM [facility] NRBC 0.0 <1.0 % [...] Result [facility] [address] [place] [address], documented in this encounter Visit Diagnoses Diagnosis Gastro-esophageal reflux disease without esophagitis Unspecified atrial fibrillation (CMS/HCC V24, CMS/HCC V28) Essential (primary) hypertension Unspecified essential hypertension documented in this encounter Care Teams Disability Representative Relationship Specialty Start Date End Date Lei Lawton MD [address] [place] [address] PCP - General Internal Medicine 08/14/24 documented as of this encounter
--- OUTSIDE RECORDS SUMMARY | 2025-07-06 07:00 | XMS_ITS | Encounter Summary ---
Author Organization [facility] Address [address] [place] [address] Care Team Providers Care Safety Coordinator Name Role Phone Lei Lawton MD Primary Care Provider +1- [phone] Encounter Details Date Type Department Care Team (Late st Contact Info) Description 09/16/2024 Lab Requisition [facility] - Main Lab [address] [facility] [place] [address] Lei Lawton MD [address] [place] [address] Gastro-esophageal reflux disease without esophagitis; Unspecified atrial [...] mmol/L LAB CHEMISTRY METHOD 09/18/2024 4:34 PM [facility] Potassium 3.9 3.5 - 5.5 mmol/L LAB CHEMISTRY METHOD 09/18/2024 4:34 PM [facility] Chloride 102 96 - 110 mmol/L LAB CHEMISTRY METHOD 09/18/2024 4:34 PM [facility] CO2 24 21 - 32 mmol/L LAB CHEMISTRY METHOD 09/18/2024 4:34 PM [facility] Anion Gap 7 3 - 11 LAB CHEMISTRY METHOD 09/18/2024 4:34 PM [facility] Glucose 90 70 - 100 mg/dL LAB CHEMISTRY METHOD 09/18/2024 4:34 PM [facility] BUN 7 5 - 25 mg/dL LAB CHEMISTRY METHOD 09/18/2024 4:34 PM [facility] Creatinine 0.43(L) 0.50 - 1.10 mg/dL LAB CHEMISTRY METHOD 09/18/2024 4:34 PM [facility] eGFR 99 >=60 mL/min/1. 73m2 LAB CHEMISTRY METHOD 09/18/2024 4:34 PM [facility] Comment:Calculation based on the Chronic Kidney Disease Epidemiology Collaboration (CKD-EPI) equation refit without adjustment for race. BUN/Creatinine Ratio 16.3 LAB CHEMISTRY METHOD 09/18/2024 4:34 PM [facility] Calcium 8.3(L) 8.5 - 10.5 mg/dL LAB CHEMISTRY METHOD 09/18/2024 4:34 PM [facility] Blood Venous blood specimen / Unknown Venipuncture / Unknown 09/18/2024 7:36 AM EST 09/18/2024 11:59 AM EST us Lei Lawton MD LAB BLOOD ORDERABLES Final Result [facility] [address] [place] [address], * (ABNORMAL) Complete blood count (09/18/2024 7:36 AM EST) WBC 4.1(L) 4.8 - 10.8 K/mcL LAB HEMETOLOGY METHOD 09/18/2024 2:00 PM [facility] RBC 3.80 3.80 - 4.80 M/mcL LAB HEMETOLOGY METHOD 09/18/2024 2:00 PM [facility] Hemoglobin 11.7 11.5 - 16.0 g/dL LAB HEMETOLOGY METHOD 09/18/2024 2:00 PM [facility] Hematocrit 35.7 35.0 - 47.0 % LAB HEMETOLOGY METHOD 09/18/2024 2:00 PM [facility] MCV 94.7 79.0 - 98.0 FL LAB HEMETOLOGY METHOD 09/18/2024 2:00 PM [facility] MCH 31.0 27.0 - 32.0 pcg LAB HEMETOLOGY METHOD 09/18/2024 2:00 PM [facility] MCHC 32.8 32.0 - 37.0 g/dL LAB HEMETOLOGY METHOD 09/18/2024 2:00 PM [facility] RDW 13.8 11.0 - 15.0 % LAB HEMETOLOGY METHOD 09/18/2024 2:00 PM [facility] Platelets 241 130 - 400 K/mcL LAB HEMETOLOGY METHOD 09/18/2024 2:00 PM [facility] MPV 8.7 7.0 - 11.0 FL LAB HEMETOLOGY METHOD 09/18/2024 2:00 PM [facility] NRBC 0.0 <1.0 % LAB HEMETOLOGY METHOD 09/18/2024 2:00 PM EST [facility] NRBC Absolute 0.00 <0.10 K/mcL LAB HEMETOLOGY METHOD 09/18/2024 2:00 PM EST [facility] Blood Venous blood specimen / Unknown Venipuncture / Unknown 09/18/2024 7:36 AM EST 09/18/2024 11:59 AM EST Lei Lawton MD LAB BLOOD ORDERABLES Final Result [facility] [address] [place] [address], documented in this encounter Visit Diagnoses Diagnosis Gastro-esophageal reflux disease without esophagitis Unspecified atrial fibrillation (CMS/HCC V24, CMS/HCC V28) Essential (primary) hypertension Unspecified essential hypertension documented in this encounter Care Teams Safety Coordinator Relationship Specialty Start Date End Date Lei Lawton MD [address] [place] [address] PCP - General Internal Medicine 08/14/24 documented as of this encounter
--- OUTSIDE RECORDS SUMMARY | 2025-07-06 07:00 | XMS_ITS | Encounter Summary ---
Author Organization [facility] Address [address] [place] [address] Care Team Providers Care Rate Quoting Operator Name Role Phone Lei Lawton MD Primary Care Provider +1- [phone] Encounter Details Date Type Department Care Team (Late st Contact Info) Description 10/01/[address] [facility] - Main Lab [address] [facility] [place] [address] Lei Lawton MD [address] [place] [address] Essential (primary) hypertension; Unspecified atrial fibrillation (CMS/HCC [...] esophagitis documented in this encounter Care Teams Rate Quoting Operator Relationship Specialty Start Date End Date Lei Lawton MD [address] [place] [address] PCP - General Internal Medicine 08/14/24 documented as of this encounter
--- OUTSIDE RECORDS SUMMARY | 2025-07-06 07:00 | XMS_ITS | Encounter Summary ---
Author Organization [facility] Address [address] [place] [address] Care Team Providers Care Front Desk Associate Name Role Phone Lei Lawton MD Primary Care Provider +1- [phone] Encounter Details Date Type Department Care Team (Late st Contact Info) Description 08/26/2024 Lab Requisition [facility] - Main Lab 299 [facility] [place] [address] Lei Lawton MD [address] [place] [address] Gastro-esophageal reflux disease without esophagitis; Unspecified atrial [...] mmol/L LAB CHEMISTRY METHOD 08/28/2024 12:15 PM [facility] Potassium 4.3 3.5 - 5.5 mmol/L LAB CHEMISTRY METHOD 08/28/2024 12:15 PM [facility] Chloride 100 96 - 110 mmol/L LAB CHEMISTRY METHOD 08/28/2024 12:15 PM [facility] CO2 25 21 - 32 mmol/L LAB CHEMISTRY METHOD 08/28/2024 12:15 PM [facility] Anion Gap 7 3 - 11 LAB CHEMISTRY METHOD 08/28/2024 12:15 PM [facility] Glucose 108(H) 70 - 100 mg/dL LAB CHEMISTRY METHOD 08/28/2024 12:15 PM [facility] BUN 8 5 - 25 mg/dL LAB CHEMISTRY METHOD 08/28/2024 12:15 PM [facility] Creatinine 0.47(L) 0.50 - 1.10 mg/dL LAB CHEMISTRY METHOD 08/28/2024 12:15 PM [facility] eGFR 97 >=60 mL/min/1. 73m2 LAB CHEMISTRY METHOD 08/28/2024 12:15 PM [facility] Comment:Calculation based on the Chronic Kidney Disease Epidemiology Collaboration (CKD-EPI) equation refit without adjustment for race. BUN/Creatinine Ratio 17.0 LAB CHEMISTRY METHOD 08/28/2024 12:15 PM [facility] Calcium 8.0(L) 8.5 - 10.5 mg/dL LAB CHEMISTRY METHOD 08/28/2024 12:15 PM [facility] Blood Venous blood specimen / Unknown Venipuncture / Unknown 08/28/2024 8:14 AM EST 08/28/2024 11:10 AM EST us Lei Lawton MD LAB BLOOD ORDERABLES Final Result [facility] [address] [place] [address], * (ABNORMAL) Complete blood count (08/28/2024 8:14 AM EST) WBC 6.3 4.8 - 10.8 K/mcL LAB HEMETOLOGY METHOD 08/28/2024 11:41 AM [facility] RBC 3.20(L) 3.80 - 4.80 M/mcL LAB HEMETOLOGY METHOD 08/28/2024 11:41 AM [facility] Hemoglobin 10.3(L) 11.5 - 16.0 g/dL LAB HEMETOLOGY METHOD 08/28/2024 11:41 AM [facility] Hematocrit 32.4(L) 35.0 - 47.0 % LAB HEMETOLOGY METHOD 08/28/2024 11:41 AM [facility] MCV 102.9(H) 79.0 - 98.0 FL LAB HEMETOLOGY METHOD 08/28/2024 11:41 AM [facility] MCH 32.7(H) 27.0 - 32.0 pcg LAB HEMETOLOGY METHOD 08/28/2024 11:41 AM [facility] MCHC 31.8(L) 32.0 - 37.0 g/dL LAB HEMETOLOGY METHOD 08/28/2024 11:41 AM [facility] RDW 14.2 11.0 - 15.0 % LAB HEMETOLOGY METHOD 08/28/2024 11:41 AM [facility] Platelets 315 130 - 400 K/mcL LAB HEMETOLOGY METHOD 08/28/2024 11:41 AM [facility] MPV 8.7 7.0 - 11.0 FL LAB HEMETOLOGY METHOD 08/28/2024 11:41 AM EST [facility] NRBC 0.0 <1.0 % LAB HEMETOLOGY METHOD 08/28/2024 11:41 AM EST [facility] NRBC Absolute 0.00 <0.10 K/mcL LAB HEMETOLOGY METHOD 08/28/2024 11:41 AM EST [facility] Blood Venous blood specimen / Unknown Venipuncture / Unknown 08/28/2024 8:14 AM EST 08/28/2024 11:03 AM EST us Lei Lawton MD LAB BLOOD ORDERABLES Final Result [facility] [address] [place] [address], documented in this encounter Visit Diagnoses Diagnosis Gastro-esophageal reflux disease without esophagitis Unspecified atrial fibrillation (CMS/HCC V24, CMS/HCC V28) Essential (primary) hypertension Unspecified essential hypertension documented in this encounter Care Teams Front Desk Associate Relationship Specialty Start Date End Date Lei Lawton MD [address] [place] [address] PCP - General Internal Medicine 08/14/24 documented as of this encounter
--- OUTSIDE RECORDS SUMMARY | 2025-07-06 07:00 | XMS_ITS | Encounter Summary ---
Author Organization [facility] Address [address] [place] [address] Care Team Providers Care Process Specialist Name Role Phone Lei Lawton MD Primary Care Provider +1- [phone] Encounter Details Date Type Department Care Team (Late st Contact Info) Description 08/14/2024 Lab Requisition [facility] - Main Lab [address] [place] [address] Lei Lawton MD [address] [place] [address] Unspecified atrial fibrillation (CMS/HCC V24, CMS/HCC V28); [...] mmol/L LAB CHEMISTRY METHOD 08/14/2024 12:[address] [facility] Potassium 3.7 3.5 - 5.5 mmol/L LAB CHEMISTRY METHOD 08/14/2024 12:[address] [facility] Chloride 102 96 - 110 mmol/L LAB CHEMISTRY METHOD 08/14/2024 12:[address] [facility] CO2 24 21 - 32 mmol/L LAB CHEMISTRY METHOD 08/14/2024 12:[address] [facility] Anion Gap 9 3 - 11 LAB CHEMISTRY METHOD 08/14/2024 12:[address] [facility] Glucose 86 70 - 100 mg/dL LAB CHEMISTRY METHOD 08/14/2024 12:[address] [facility] BUN 14 5 - 25 mg/dL LAB CHEMISTRY METHOD 08/14/2024 12:[address] [facility] Creatinine 0.53 0.50 - 1.10 mg/dL LAB CHEMISTRY METHOD 08/14/2024 12:[address] [facility] eGFR 94 >=60 mL/min/1. 73m2 LAB CHEMISTRY METHOD 08/14/2024 12:[address] [facility] Comment:Calculation based on the Chronic Kidney Disease Epidemiology Collaboration (CKD-EPI) equation refit without adjustment for race. BUN/Creatinine Ratio 26.4 LAB CHEMISTRY METHOD 08/14/2024 12:[address] [facility] Calcium 8.2(L) 8.5 - 10.5 mg/dL LAB CHEMISTRY METHOD 08/14/2024 12:[address] [facility] AST (SGOT) 20 10 - 42 unit/L LAB CHEMISTRY METHOD 08/14/2024 12:[address] [facility] ALT (SGPT) 16 10 - 60 unit/L LAB CHEMISTRY METHOD 08/14/2024 12:[address] [facility] Alkaline Phosphatase 137(H) 42 - 121 unit/L LAB CHEMISTRY METHOD 08/14/2024 12:[address] [facility] Total Protein 5.3(L) 6.0 - 8.0 g/dL LAB CHEMISTRY METHOD 08/14/2024 12:[address] [facility] Albumin 2.6(L) 3.2 - 5.0 g/dL LAB CHEMISTRY METHOD 08/14/2024 12:[address] [facility] Total Bilirubin 1.8(H) 0.0 - 1.4 mg/dL LAB CHEMISTRY METHOD 08/14/2024 12:[address] [facility] Blood Venous blood specimen / Unknown Venipuncture / Unknown 08/14/2024 7:25 AM EST 08/14/2024 10:59 AM EST us Lei Lawton MD LAB BLOOD ORDERABLES Final Result [facility] [address] [place] [address], * (ABNORMAL) Complete blood count (08/14/2024 7:25 AM EST) WBC 6.6 4.8 - 10.8 K/mcL LAB HEMETOLOGY METHOD 08/14/2024 11:[address] [facility] RBC 3.20(L) 3.80 - 4.80 M/mcL LAB HEMETOLOGY METHOD 08/14/2024 11:[address] [facility] Hemoglobin 10.8(L) 11.5 - 16.0 g/dL LAB HEMETOLOGY METHOD 08/14/2024 11:[address] [facility] Hematocrit 33.5(L) 35.0 - 47.0 % LAB HEMETOLOGY METHOD 08/14/2024 11:[address] [facility] MCV 105.0(H) 79.0 - 98.0 FL LAB HEMETOLOGY METHOD 08/14/2024 11:[address] [facility] MCH 33.9(H) 27.0 - 32.0 pcg LAB HEMETOLOGY METHOD 08/14/2024 11:47 AM EST [facility] MCHC 32.2 32.0 - 37.0 g/dL LAB HEMETOLOGY METHOD 08/14/2024 11:[address] [facility] RDW 13.6 11.0 - 15.0 % LAB HEMETOLOGY METHOD 08/14/2024 11:47 AM EST [facility] Platelets 265 130 - 400 K/mcL LAB HEMETOLOGY METHOD 08/14/2024 11:[address] [facility] MPV 9.5 7.0 - 11.0 FL LAB HEMETOLOGY METHOD 08/14/2024 11:[address] [facility] NRBC 0.0 <1.0 % LAB HEMETOLOGY METHOD 08/14/2024 11:[address] [facility] NRBC Absolute 0.00 <0.10 K/mcL LAB HEMETOLOGY METHOD 08/14/2024 11:[address] [facility] Blood Venous blood specimen / Unknown Venipuncture / Unknown 08/14/2024 7:25 AM EST 08/14/2024 10:59 AM EST Lei Lawton MD LAB BLOOD ORDERABLES Final Result [facility] [address] [place] [address], documented in this encounter Visit Diagnoses Diagnosis Unspecified atrial fibrillation (CMS/HCC V24, CMS/HCC V28) Essential (primary) hypertension Unspecified essential hypertension documented in this encounter Care Teams Process Specialist Relationship Specialty Start Date End Date Lei Lawton MD [address] [place] [id number] PCP - General Internal Medicine 08/14/24 documented as of this encounter
--- OUTSIDE RECORDS SUMMARY | 2025-07-06 07:00 | XMS_ITS | Encounter Summary ---
Author Organization [facility] Address [address] [place] [address] Care Team Providers Care Nuclear Medicine Physician Name Role Phone Lei Lawton MD Primary Care Provider +1- [phone] Encounter Details Date Type Department Care Team (Late st Contact Info) Description 08/18/2024 Lab Requisition [facility] - Main Lab 299 [facility] [place] [address] Lei Lawton MD [address] [place] [address] Gastro-esophageal reflux disease without esophagitis; Unspecified atrial [...] hypertension documented in this encounter Care Teams Nuclear Medicine Physician Relationship Specialty Start Date End Date Lei Lawton MD [address] [place] [address] PCP - General Internal Medicine 08/14/24 documented as of this encounter
--- OUTSIDE RECORDS SUMMARY | 2025-07-06 07:00 | XMS_ITS | Encounter Summary ---
Author Organization [facility] Address [address] [place] [address] Care Team Providers Care Beauty Culturist Apprentice Name Role Phone Lei Lawton MD Primary Care Provider +1- [phone] Encounter Details Date Type Department Care Team (Late st Contact Info) Description 09/03/2024 Lab Requisition [facility] - Main Lab [address] [facility] [place] [address] Lei Lawton MD [address] [place] [address] Gastro-esophageal reflux disease without esophagitis; Unspecified atrial [...] mmol/L LAB CHEMISTRY METHOD 09/04/2024 2:54 PM [facility] Potassium 3.8 3.5 - 5.5 mmol/L LAB CHEMISTRY METHOD 09/04/2024 2:54 PM [facility] Chloride 103 96 - 110 mmol/L LAB CHEMISTRY METHOD 09/04/2024 2:54 PM [facility] CO2 26 21 - 32 mmol/L LAB CHEMISTRY METHOD 09/04/2024 2:54 PM [facility] Anion Gap 7 3 - 11 LAB CHEMISTRY METHOD 09/04/2024 2:54 PM [facility] Glucose 126(H) 70 - 100 mg/dL LAB CHEMISTRY METHOD 09/04/2024 2:54 PM [facility] BUN 4(L) 5 - 25 mg/dL LAB CHEMISTRY METHOD 09/04/2024 2:54 PM [facility] Creatinine 0.53 0.50 - 1.10 mg/dL LAB CHEMISTRY METHOD 09/04/2024 2:54 PM [facility] eGFR 94 >=60 mL/min/1. 73m2 LAB CHEMISTRY METHOD 09/04/2024 2:54 PM [facility] Comment:Calculation based on the Chronic Kidney Disease Epidemiology Collaboration (CKD-EPI) equation refit without adjustment for race. BUN/Creatinine Ratio 7.5 LAB CHEMISTRY METHOD 09/04/2024 2:54 PM [facility] Calcium 7.8(L) 8.5 - 10.5 mg/dL LAB CHEMISTRY METHOD 09/04/2024 2:54 PM [facility] Blood Venous blood specimen / Unknown Venipuncture / Unknown 09/04/2024 8:57 AM EST 09/04/2024 12:18 PM EST us Lei Lawton MD LAB BLOOD ORDERABLES Final Result [facility] [address] [place] [address], * (ABNORMAL) Complete blood count (09/04/2024 8:57 AM EST) [facility] WBC 5.0 4.8 - 10.8 K/mcL LAB HEMETOLOGY METHOD 09/04/2024 1:50 PM EST [facility] RBC 3.70(L) 3.80 - 4.80 M/mcL LAB HEMETOLOGY METHOD 09/04/2024 1:50 PM EST [facility] Hemoglobin 11.7 11.5 - 16.0 g/dL LAB HEMETOLOGY METHOD 09/04/2024 1:50 PM EST [facility] Hematocrit 37.5 35.0 - 47.0 % LAB HEMETOLOGY METHOD 09/04/2024 1:50 PM EST [facility] MCV 101.6(H) 79.0 - 98.0 FL LAB HEMETOLOGY METHOD 09/04/2024 1:50 PM EST [facility] MCH 31.7 27.0 - 32.0 pcg LAB HEMETOLOGY METHOD 09/04/2024 1:50 PM EST [facility] MCHC 31.2(L) 32.0 - 37.0 g/dL LAB HEMETOLOGY METHOD 09/04/2024 1:50 PM EST [facility] RDW 14.1 11.0 - 15.0 % LAB HEMETOLOGY METHOD 09/04/2024 1:50 PM EST [facility] Platelets 313 130 - 400 K/mcL LAB HEMETOLOGY METHOD 09/04/2024 1:50 PM EST [facility] MPV 8.5 7.0 - 11.0 FL LAB HEMETOLOGY METHOD 09/04/2024 1:50 PM EST [facility] NRBC 0.0 <1.0 % LAB HEMETOLOGY METHOD 09/04/2024 1:50 PM EST [facility] NRBC Absolute 0.00 <0.10 K/mcL LAB HEMETOLOGY METHOD 09/04/2024 1:50 PM EST [facility] Blood Venous blood specimen / Unknown Venipuncture / Unknown 09/04/2024 8:57 AM EST 09/04/2024 12:18 PM EST us Lei Lawton MD LAB BLOOD ORDERABLES Final Result [facility] [address] [place] [address], documented in this encounter Visit Diagnoses Diagnosis Gastro-esophageal reflux disease without esophagitis Unspecified atrial fibrillation (CMS/HCC V24, CMS/HCC V28) Essential (primary) hypertension Unspecified essential hypertension documented in this encounter Care Teams Beauty Culturist Apprentice Relationship Specialty Start Date End Date Lei Lawton MD [address] [place] [address] PCP - General Internal Medicine 08/14/24 documented as of this encounter
--- OUTSIDE RECORDS SUMMARY | 2025-07-06 07:00 | XMS_ITS | Clinical Summary ---
Author Organization [facility] Address [address] [place] [address] Care Team Providers Care Lawnmower Mechanic Name Role Phone Unavailable Primary Care Provider Unavailabl e Social History Tobacco Use Types Packs/Day Years Used Date Smoking Tobacco: Never Assessed Sex and Gender Information Value Date Recorded Sex Assigned at Not on file Gender Identity Not on file Sexual Orientation Not on file Plan of Treatment Not on file
--- OUTSIDE RECORDS SUMMARY | 2025-07-06 07:00 | XMS_ITS | Encounter Summary ---
Author Organization [facility] [place] [address] Care Team Providers Care Supervisor Fabrication And Assembly Name Role Phone Lei Lawton MD Primary Care Provider +1- [phone] Encounter Details Date Type Department Care Team (Late st Contact Info) Description 09/28/2024 Lab Requisition [facility] - Main Lab 299 [facility] [place] [address] Lei Lawton MD [address] [place] [address] Weakness; Shortness of breath Social History Tobacco [...] LAB CHEMISTRY METHOD 09/28/2024 12:51 PM EST [facility] Blood Venous blood specimen / Unknown Venipuncture / Unknown 09/28/2024 5:33 AM EST 09/28/2024 11:37 AM EST Lei Lawton MD LAB BLOOD ORDERABLES Final Result Performing Organization Address City/[facility]/ZIP Co de Phone Number [facility] [address] [place] [address], [place] [phone] * (ABNORMAL) B-type natriuretic peptide (09/28/2024 5:33 AM EST) BNP 254(H) <=100 pcg/mL LAB CHEMISTRY METHOD 09/28/2024 12:52 PM [facility] Blood Venous blood specimen / Unknown Venipuncture / Unknown 09/28/2024 5:33 AM EST 09/28/2024 11:37 AM EST Lei Lawton MD LAB BLOOD ORDERABLES Final Result Performing Organization Address City/[facility]/ZIP Co de Phone Number [facility] [address] [place] [address], [place] [phone] * (ABNORMAL) Basic metabolic panel (09/28/2024 5:33 AM EST) Sodium 133 133 - 145 mmol/L LAB CHEMISTRY METHOD 09/28/2024 12:51 PM [facility] Potassium 3.7 3.5 - 5.5 mmol/L LAB CHEMISTRY METHOD 09/28/2024 12:51 PM [facility] Chloride 100 96 - 110 mmol/L LAB CHEMISTRY METHOD 09/28/2024 12:51 PM [facility] CO2 27 21 - 32 mmol/L LAB CHEMISTRY METHOD 09/28/2024 12:51 PM [facility] Anion Gap 6 3 - 11 LAB CHEMISTRY METHOD 09/28/2024 12:51 PM [facility] Glucose 80 70 - 100 mg/dL LAB CHEMISTRY METHOD 09/28/2024 12:51 PM [facility] BUN 8 5 - 25 mg/dL LAB CHEMISTRY METHOD 09/28/2024 12:51 PM [facility] Creatinine 0.53 0.50 - 1.10 mg/dL LAB CHEMISTRY METHOD 09/28/2024 12:51 PM [facility] eGFR 94 >=60 mL/min/1. 73m2 LAB CHEMISTRY METHOD 09/28/2024 12:51 PM [facility] Comment:Calculation based on the Chronic Kidney Disease Epidemiology Collaboration (CKD-EPI) equation refit without adjustment for race. BUN/Creatinine Ratio 15.1 LAB CHEMISTRY METHOD 09/28/2024 12:51 PM [facility] Calcium 8.3(L) 8.5 - 10.5 mg/dL LAB CHEMISTRY METHOD 09/28/2024 12:51 PM [facility] Blood Venous blood specimen / Unknown Venipuncture / Unknown 09/28/2024 5:33 AM EST 09/28/2024 11:37 AM EST us Lei Lawton MD LAB BLOOD ORDERABLES Final Result [facility] [address] [place] [address], documented in this encounter Visit Diagnoses Diagnosis Weakness Other malaise and fatigue Shortness of breath documented in this encounter Care Teams Supervisor Fabrication And Assembly Relationship Specialty Start Date End Date Lei Lawton MD [address] [place] [id number] PCP - General Internal Medicine 08/14/24 documented as of this encounter
[2025-07-06 07:23] LABS: Anion Gap 12 (12-20); Blood Urea Nitrogen 22 mg/dL (9-16); Calcium 7.9 mg/dL (8.4-10.2); Carbon Dioxide 24 mmol/L (22-29); Chloride 109 mmol/L (96-108); Estimated Glomerular Filt Rate 31; Potassium 3.4 mmol/L (3.3-5.1); Sodium 142 mmol/L (135-145)
== END 2025-07-06 06:58 | disposition home or self-care (01) ==
LOC: HO.MMNH2L 06:57
PROVIDERS: Visit Provider Physician Assistant Medical
DX: I50.33 Acute on chronic diastolic (congestive) heart failure (principal); D64.9 Anemia, unspecified
CPT/HCPCS: 36415; 80048

== ENCOUNTER 2025-07-09 06:29 | Outpatient (REF) | payer MEDICARE, SELFPAY ==
--- OUTSIDE RECORDS SUMMARY | 2025-07-04 23:59 | XMS_ITS | Continuity of Care Document ---
Author Organization [facility] Adult Address [address] [place] [address]- Care Team Providers Care Solo Truck Driver Name Role Phone Lynette Martinez Primary Care P jose g Encounter [facility] [place] Date(s): 06/04/25 - 07/04/[address] [address]- Encounter Type: Triage Allergies, Adverse Reactions, Alerts Substance Criticality Severity Reaction Reaction Severity Status codeine light headedness Act ana paula codeine-guaiFEN esin itchy Active Iophen NR 1 Unable to assess criticality Persistent Severe dizziness Active 1allergic to IOPHEN-NR Liquid Immunizations Given and Recorded Vaccine Date Status Refusal Reason influenza virus vaccine, inactivated 05/15/25 Give n influenza virus vaccine, inactivated 1 06/15/24 Gi roselyn influenza virus vaccine, inactivated 04/30/22 Timi rded influenza virus vaccine, inactivated 05/19/21 Timi rded influenza virus vaccine, inactivated 06/05/20 Timi rded influenza virus vaccine, inactivated 06/12/11 Give n tetanus-diphtheria toxoids (Td) 2 06/15/24 Given EBPU-OjF-0lLUP 12y+ bivalent booster vax 06/12/22 Recorded SARS-CoV-2 mRNA (bjmrscp-vveq-nlitv) vax 11/25/21 Recorded SARS-CoV-2 (COVID-19) mRNA BNT-162b2 vac 05/12/21 Recorded SARS-CoV-2 (COVID-19) mRNA BNT-162b2 vac 10/19/20 Recorded SARS-CoV-2 (COVID-19) mRNA BNT-162b2 vac 09/28/20 Recorded pneumococcal 23-valent vaccine 3 08/04/12 Given 1Result Comment: [facility]# [id number] 2Result Comment: [facility]# [id number] 3Admin Note: administered by Aleta Medications acetaminophen [...] Refills, Maintenance, 05/09/25 2:08:00 PM EDT, Tablet, [facility]/pharmacy #[id number], Partial fill upon patient request if [...] 3 Refills, Maintenance, 07/28/24 4:57:00 PM EST, [id number], 168, cm, 07/19/24 15:37:00 EST, Height, [...] mg, 1, tablet, By Mouth, Daily, # 90 tablet, Refills 1, Tot. Refills 1, Maintenance, 07/04/25 9:16:00 AM EST, Route to Pharmacy Electronically, [facility]/pharmacy #[id number], Partial fill upon patient request if the prescription is for a schedule II opioid drug., 168, cm, 06/29/25 1:46:00 EST, Height, 67.4, kg, 06/25/25 13:22:00 EST, Dry Weight Start Date: 07/04/25 Status: Ordered Medication Dispense Status: Completed Quantity: 90.0 Unit: tablet Total Allowed Fills: 2 Fills Dispensed: 0 mirtazapine 15 mg oral tablet 1 tablet = 15 mg, By Mouth, Daily at bedtime, # 90 tablet, 0 Refills, Maintenance, 06/04/25 1:10:00PM EDT, Tablet, [facility]/pharmacy #[id number], Partial fill upon patient request if [...] Refills, Maintenance, 04/23/25 4:56:00 PM EDT, Tablet, [facility]/pharmacy #[id number], Partial fill upon patient request if [...] 7:33:00 AM EDT, Route to Pharmacy Electronically, [id number], 168, cm, 04/06/25 0:26:00 EDT, Height, 68.2, [...] loss Confirmed Active 1HEALTHCARE PROXY INVOKED BY [facility] ANTONI DARNELL Social History Social History Type Response Smoking Status Never (less than 100 in lifetime); Tobacco user in household: Yes; Other: In the past ex and mother used to smoke in house.; entered on: 03/15/20 Sexual Orientation Self described orien tation: ; Straight or heterosexual Sex Sex Representation Female (finding) Patient Care team information Care Team Personnel Name: Dwayne Arenas RN Position: S RN Member Role: Primary Care Nurse Name: Joan Zambrano RN Position: S RN Member Role: Primary Care Nurse Name: Pilar Marques RN Position: [facility] RN Member Role: Primary Care Nurse Name: Mark Anthony Díaz RN Position: [facility] RN Member Role: Primary Care Nurse Name: Meliza Box RN Position: [facility] RN Member Role: Primary Care Nurse Name: Galindo Jade RN Position: [facility] RN Member Role: Primary Care Nurse Name: Eloise Sadler RN Position: [facility] RN Member Role: Primary Care Nurse Name: Delfino Franz RN Position: [facility] RN Member Role: Primary Care Nurse Name: Nessa Tom RN Position: [facility] RN Member Role: Primary Care Nurse Name: Lili Flores RN Position: [facility] RN Member Role: Primary Care Nurse Name: Gwyn Gallegos RN Position: [facility] RN Member Role: Primary Care Nurse Name: Santa Waller RN Position: [facility] RN Member Role: Primary Care Nurse Name: Yashira Arnold Position: [facility] [place] Winder Member Role: Environmental Safety Specialist Name: Karli Wilson RN Position: [facility] RN Member Role: Primary Care Nurse Name: Gennaro Oliver RN Position: [facility] SN RN Member Role: Primary Care Nurse Name: Chela Kidd RN Position: [facility] RN Member Role: Primary Care Nurse Name: Vivi Gil RN Position: [facility] RN Member Role: Primary Care Nurse Name: Lynette Martinez Position: [facility] PCO Associate Professional Member Role: PCP Address: [address] [place] [address]. [address] [place], [place] [address] Telecom: Name: Dionne Bhatt RN Position: [facility] RN Member Role: Primary Care Nurse Name: Monalisa Ragsdale RN Position: [facility] RN Member Role: Primary Care Nurse Name: Delmy Taveras RN Position: [facility] RN Member Role: Primary Care Nurse Name: Sonja Ng LPN Position: [facility] RN Member Role: Primary Care Nurse Care Team Related Persons Name: PARAS LAKHANI Name: BLUE BRIONES Name: CARIE SCHAEFER Insurance Providers Guarantor name[facility] Plan Information #: 1 Payer: [employer] MEDIC[employer] ADV HMO Payer Identifier: TONY Member Number: [id number] Group Number: [id number] Subscriber Identifier: NA Relationship to Subscriber: self Coverage Type: Medicare HMO Coverage Verification Date: TONY Telecom: TONY Address: NA
--- OUTSIDE RECORDS SUMMARY | 2025-07-07 23:59 | XMS_ITS | Continuity of Care Document ---
Author Organization [facility] Address [address] [place] [address]- Care Team Providers Care Crystal Slicer Name Role Phone Lynette Martinez Primary Care Reginaldo araiza Encounter [place] Date(s): 06/07/25 - 07/07/[address] [address]- Encounter Type: Triage Allergies, Adverse Reactions, Alerts [...] n tetanus-diphtheria toxoids (Td) 2 06/15/24 Given [id number] 12y+ bivalent booster vax 06/12/22 Recorded SARS-CoV-2 mRNA ([id number]) vax 11/25/21 Recorded SARS-CoV-2 (COVID-19) mRNA BNT-162b2 vac 05/12/21 Recorded SARS-CoV-2 (COVID-19) mRNA BNT-162b2 vac 10/19/20 Recorded SARS-CoV-2 (COVID-19) mRNA BNT-162b2 vac 09/28/20 Recorded pneumococcal 23-valent vaccine 3 08/04/12 Given 1Result Comment: [facility]# [id number] 2Result Comment: [facility]# [id number] 3Admin Note: administered by Aleta Medications acetaminophen [...] Refills, Maintenance, 05/09/25 2:08:00 PM EDT, Tablet, [facility]/pharmacy #[id number], Partial fill upon patient request [...] 9:16:00 AM EST, Route to Pharmacy Electronically, [facility]/pharmacy #[id number], Partial fill upon patient request [...] 0 Refills, Maintenance, 06/04/25 1:10:00PM EDT, Tablet, [facility]/pharmacy #[id number], Partial fill upon patient request [...] Refills, Maintenance, 04/23/25 4:56:00 PM EDT, Tablet, [facility]/pharmacy #[id number], Partial fill upon patient request [...] 7:33:00 AM EDT, Route to Pharmacy Electronically, [facility] STORE [id number], 168, cm, 04/06/25 0:26:00 EDT, Height, 68.2, [...] loss Confirmed Active 1[facility]ALTH[facility] PROXY INVOKED BY [facility] ANTONI DARNELL Social History Social History Type Response Smoking Status Never (less than 100 in lifetime); Tobacco user in household: Yes; Other: In the past ex and mother used to smoke in house.; entered on: 03/15/20 Sexual Orientation Self described orien tation: ; Straight or heterosexual Sex Sex Representation Female (finding) Patient Care team information Care Team Personnel Name: Dwayne Arenas RN Position: [facility] RN Member Role: Primary Care Nurse Name: Joan Zambrano RN Position: S RN Member Role: Primary Care Nurse Name: Pilar Marques RN Position: [facility] RN Member Role: Primary Care Nurse Name: Mark Anthony Díaz RN Position: [facility] RN Member Role: Primary Care Nurse Name: Meliza Box RN Position: [facility] RN Member Role: Primary Care Nurse Name: Galindo Jade RN Position: [facility] RN Member Role: Primary Care Nurse Name: Eloise Sadler RN Position: [facility] RN Member Role: Primary Care Nurse Name: Delfino Franz RN Position: [facility] RN Member Role: Primary Care Nurse Name: Nessa Tom RN Position: [facility] RN Member Role: Primary Care Nurse Name: Lili Flores RN Position: [facility] RN Member Role: Primary Care Nurse Name: Gwyn Gallegos RN Position: [facility] RN Member Role: Primary Care Nurse Name: Santa Waller RN Position: [facility] RN Member Role: Primary Care Nurse Name: Yashira Arnold Position: [facility] [place] Cashier General Member Role: Supervisor Photostat Name: Karli Wilson RN Position: [facility] RN Member Role: Primary Care Nurse Name: Gennaro Oliver RN Position: [facility] SN RN Member Role: Primary Care Nurse Name: Chela Kidd RN Position: [facility] RN Member Role: Primary Care Nurse Name: Vivi Gil RN Position: [facility] RN Member Role: Primary Care Nurse Name: Lynette Martinez Position: [facility] PCO Associate Professional Member Role: PCP Address: [address] [place] [address]. [address] [place], [place] [address] Telecom: Name: Dionne Bhatt RN Position: [facility] RN Member Role: Primary Care Nurse Name: Monalisa Ragsdale RN Position: [facility] RN Member Role: Primary Care Nurse Name: Delmy Taveras RN Position: [facility] RN Member Role: Primary Care Nurse Name: Sonja Ng LPN Position: [facility] RN Member Role: Primary Care Nurse Care Team Related Persons Name: PARAS LAKHANI Name: BLUE BRIONES Name: CARIE SCHAEFER Insurance Providers Guarantor name: [facility] Information #: 1 Payer: [employer] ADV HMO Payer Identifier: TONY Member Number: [id number] Group Number: [id number] Subscriber Identifier: NA Relationship to Subscriber: self Coverage Type: Medicare HMO Coverage Verification Date: TONY Telecom: TONY Address: NA
[2025-07-09 05:59] LABS: MANUAL DIFF FLAG NO
--- OUTSIDE RECORDS SUMMARY | 2025-07-09 06:34 | XMS_ITS | Encounter Summary ---
Author Organization [facility] Address [address] [place] [address] Care Team Providers Care Mosaic Tiler Name Role Phone Lei Lawton MD Primary Care Provider +1- [phone] Encounter Details Date Type Department Care Team (Late st Contact Info) Description 09/24/[address] [facility] - Main Lab [address] [facility] [place] [address] Lei Lawton MD [address] [place] [address] Essential (primary) hypertension; Unspecified atrial fibrillation (CMS/HCC [...] mmol/L LAB CHEMISTRY METHOD 09/25/2024 1:12 PM [facility] Potassium 4.3 3.5 - 5.5 mmol/L LAB CHEMISTRY METHOD 09/25/2024 1:12 PM [facility] Chloride 99 96 - 110 mmol/L LAB CHEMISTRY METHOD 09/25/2024 1:12 PM [facility] CO2 25 21 - 32 mmol/L LAB CHEMISTRY METHOD 09/25/2024 1:12 PM [facility] Anion Gap 7 3 - 11 LAB CHEMISTRY METHOD 09/25/2024 1:12 PM [facility] Glucose 118(H) 70 - 100 mg/dL LAB CHEMISTRY METHOD 09/25/2024 1:12 PM [facility] BUN 8 5 - 25 mg/dL LAB CHEMISTRY METHOD 09/25/2024 1:12 PM [facility] Creatinine 0.53 0.50 - 1.10 mg/dL LAB CHEMISTRY METHOD 09/25/2024 1:12 PM [facility] eGFR 94 >=60 mL/min/1. 73m2 LAB CHEMISTRY METHOD 09/25/2024 1:12 PM [facility] Comment:Calculation based on the Chronic Kidney Disease Epidemiology Collaboration (CKD-EPI) equation refit without adjustment for race. BUN/Creatinine Ratio 15.1 LAB CHEMISTRY METHOD 09/25/2024 1:12 PM [facility] Calcium 8.4(L) 8.5 - 10.5 mg/dL LAB CHEMISTRY METHOD 09/25/2024 1:12 PM [facility] Blood Venous blood specimen / Unknown Venipuncture / Unknown 09/25/2024 8:40 AM EST 09/25/2024 11:11 AM EST us Lei Lawton MD LAB BLOOD ORDERABLES Final Result [facility] [address] [place] [address], * (ABNORMAL) Complete blood count (09/25/2024 8:40 AM EST) [facility] Signature WBC 3.8(L) 4.8 - 10.8 K/mcL LAB HEMETOLOGY METHOD 09/25/2024 2:09 PM [facility] RBC 3.50(L) 3.80 - 4.80 M/mcL LAB HEMETOLOGY METHOD 09/25/2024 2:09 PM [facility] Hemoglobin 10.9(L) 11.5 - 16.0 g/dL LAB HEMETOLOGY METHOD 09/25/2024 2:09 PM [facility] Hematocrit 33.6(L) 35.0 - 47.0 % LAB HEMETOLOGY METHOD 09/25/2024 2:[address] [facility] MCV 96.3 79.0 - 98.0 FL LAB HEMETOLOGY METHOD 09/25/2024 2:09 PM [facility] MCH 31.2 27.0 - 32.0 pcg LAB HEMETOLOGY METHOD 09/25/2024 2:09 PM [facility] MCHC 32.4 32.0 - 37.0 g/dL LAB HEMETOLOGY METHOD 09/25/2024 2:09 PM [facility] RDW 13.9 11.0 - 15.0 % LAB HEMETOLOGY METHOD 09/25/2024 2:09 PM [facility] Platelets 202 130 - 400 K/mcL LAB HEMETOLOGY METHOD 09/25/2024 2:09 PM [facility] MPV 9.0 7.0 - 11.0 FL LAB HEMETOLOGY METHOD 09/25/2024 2:09 PM [facility] NRBC 0.0 <1.0 % LAB HEMETOLOGY METHOD 09/25/2024 2:[address] [facility] NRBC Absolute 0.00 <0.10 K/mcL LAB HEMETOLOGY METHOD 09/25/2024 2:[address] [facility] Blood Venous blood specimen / Unknown Venipuncture / Unknown 09/25/2024 8:40 AM EST 09/25/2024 11:11 AM EST us Lei Lawton MD LAB BLOOD ORDERABLES Final Result [facility] [address] [place] [address], documented in this encounter Visit Diagnoses Diagnosis Essential (primary) hypertension Unspecified essential hypertension Unspecified atrial fibrillation (CMS/HCC V24, CMS/HCC V28) Gastro-esophageal reflux disease without esophagitis documented in this encounter Care Teams Mosaic Tiler Relationship Specialty Start Date End Date Lei Lawton MD [address] [place] [address] PCP - General Internal Medicine 08/14/24 documented as of this encounter
--- OUTSIDE RECORDS SUMMARY | 2025-07-09 06:34 | XMS_ITS | Encounter Summary ---
Author Organization [facility] Address [address] [place] [address] Care Team Providers Care Building Cleaning Supervisor Name Role Phone Lei Lawton MD Primary Care Provider +1- [phone] Encounter Details Date Type Department Care Team (Late st Contact Info) Description 09/16/2024 Lab Requisition [facility] - Main Lab 299 [facility] [place] [address] Lei Lawton MD [address] [place] [address] Gastro-esophageal reflux disease without esophagitis; Unspecified atrial [...] mmol/L LAB CHEMISTRY METHOD 09/18/2024 4:34 PM [facility] Potassium 3.9 3.5 - 5.5 mmol/L LAB CHEMISTRY METHOD 09/18/2024 4:34 PM [facility] Chloride 102 96 - 110 mmol/L LAB CHEMISTRY METHOD 09/18/2024 4:34 PM [facility] CO2 24 21 - 32 mmol/L LAB CHEMISTRY METHOD 09/18/2024 4:34 PM [facility] Anion Gap 7 3 - 11 LAB CHEMISTRY METHOD 09/18/2024 4:34 PM [facility] Glucose 90 70 - 100 mg/dL LAB CHEMISTRY METHOD 09/18/2024 4:34 PM [facility] BUN 7 5 - 25 mg/dL LAB CHEMISTRY METHOD 09/18/2024 4:34 PM [facility] Creatinine 0.43(L) 0.50 - 1.10 mg/dL LAB CHEMISTRY METHOD 09/18/2024 4:34 PM [facility] eGFR 99 >=60 mL/min/1. 73m2 LAB CHEMISTRY METHOD 09/18/2024 4:34 PM [facility] Comment:Calculation based on the Chronic Kidney Disease Epidemiology Collaboration (CKD-EPI) equation refit without adjustment for race. BUN/Creatinine Ratio 16.3 LAB CHEMISTRY METHOD 09/18/2024 4:34 PM [facility] Calcium 8.3(L) 8.5 - 10.5 mg/dL LAB CHEMISTRY METHOD 09/18/2024 4:34 PM [facility] Blood Venous blood specimen / Unknown Venipuncture / Unknown 09/18/2024 7:36 AM EST 09/18/2024 11:59 AM EST us Lei Lawton MD LAB BLOOD ORDERABLES Final Result [facility] [address] [place] [address], * (ABNORMAL) Complete blood count (09/18/2024 7:36 AM EST) WBC 4.1(L) 4.8 - 10.8 K/mcL LAB HEMETOLOGY METHOD 09/18/2024 2:00 PM [facility] RBC 3.80 3.80 - 4.80 M/mcL LAB HEMETOLOGY METHOD 09/18/2024 2:00 PM [facility] Hemoglobin 11.7 11.5 - 16.0 g/dL LAB HEMETOLOGY METHOD 09/18/2024 2:00 PM [facility] Hematocrit 35.7 35.0 - 47.0 % LAB HEMETOLOGY METHOD 09/18/2024 2:00 PM [facility] MCV 94.7 79.0 - 98.0 FL LAB HEMETOLOGY METHOD 09/18/2024 2:00 PM [facility] MCH 31.0 27.0 - 32.0 pcg LAB HEMETOLOGY METHOD 09/18/2024 2:00 PM [facility] MCHC 32.8 32.0 - 37.0 g/dL LAB HEMETOLOGY METHOD 09/18/2024 2:00 PM [facility] RDW 13.8 11.0 - 15.0 % LAB HEMETOLOGY METHOD 09/18/2024 2:00 PM [facility] Platelets 241 130 - 400 K/mcL LAB HEMETOLOGY METHOD 09/18/2024 2:00 PM [facility] MPV 8.7 7.0 - 11.0 FL LAB HEMETOLOGY METHOD 09/18/2024 2:00 PM [facility] NRBC 0.0 <1.0 % LAB HEMETOLOGY METHOD 09/18/2024 2:00 PM EST [facility] NRBC Absolute 0.00 <0.10 K/mcL LAB HEMETOLOGY METHOD 09/18/2024 2:00 PM EST [facility] Blood Venous blood specimen / Unknown Venipuncture / Unknown 09/18/2024 7:36 AM EST 09/18/2024 11:59 AM EST Lei Lawton MD LAB BLOOD ORDERABLES Final Result [facility] [address] [place] [address], documented in this encounter Visit Diagnoses Diagnosis Gastro-esophageal reflux disease without esophagitis Unspecified atrial fibrillation (CMS/HCC V24, CMS/HCC V28) Essential (primary) hypertension Unspecified essential hypertension documented in this encounter Care Teams Building Cleaning Supervisor Relationship Specialty Start Date End Date Lei Lawton MD [address] [place] [address] PCP - General Internal Medicine 08/14/24 documented as of this encounter
--- OUTSIDE RECORDS SUMMARY | 2025-07-09 06:34 | XMS_ITS | Encounter Summary ---
Author Organization [facility] Address [address] [place] [address] Care Team Providers Care Consulting Intern Name Role Phone Lei Lawton MD Primary Care Provider +1- [phone] Encounter Details Date Type Department Care Team (Late st Contact Info) Description 09/16/[address] [facility] - Main Lab 299 [facility] [place] [address] Lei Lawton MD [address] [place] [address] Gastro-esophageal reflux disease without esophagitis; Unspecified atrial [...] hypertension documented in this encounter Care Teams Consulting Intern Relationship Specialty Start Date End Date Lei Lawton MD [address] [place] [address] PCP - General Internal Medicine 08/14/24 documented as of this encounter
--- OUTSIDE RECORDS SUMMARY | 2025-07-09 06:34 | XMS_ITS | Encounter Summary ---
Author Organization [facility] [place] [address] Care Team Providers Care Street Railway Line Installer Name Role Phone Lei Lawton MD Primary Care Provider +1- [phone] Encounter Details Date Type Department Care Team (Late st Contact Info) Description 09/28/2024 Lab Requisition [facility] - Main Lab 299 [facility] [place] [address] Lei Lawton MD [address] [place] [address] Weakness; Shortness of breath Social History Tobacco [...] LAB CHEMISTRY METHOD 09/28/2024 12:51 PM EST [facility] Blood Venous blood specimen / Unknown Venipuncture / Unknown 09/28/2024 5:33 AM EST 09/28/2024 11:37 AM EST Lei Lawton MD LAB BLOOD ORDERABLES Final Result Performing Organization Address City/[facility]/ZIP Co de Phone Number [facility] [address] [place] [address], [place] [phone] * (ABNORMAL) B-type natriuretic peptide (09/28/2024 5:33 AM EST) BNP 254(H) <=100 pcg/mL LAB CHEMISTRY METHOD 09/28/2024 12:52 PM [facility] Blood Venous blood specimen / Unknown Venipuncture / Unknown 09/28/2024 5:33 AM EST 09/28/2024 11:37 AM EST Lei Lawton MD LAB BLOOD ORDERABLES Final Result Performing Organization Address City/[facility]/ZIP Co de Phone Number [facility] [address] [place] [address], [place] [phone] * (ABNORMAL) Basic metabolic panel (09/28/2024 5:33 [...] Final Result [facility] [address] [place] [address], documented in this encounter Visit Diagnoses Diagnosis Weakness Other malaise and fatigue Shortness of breath documented in this encounter Care Teams Street Railway Line Installer Relationship Specialty Start Date End Date Lei Lawton MD [address] [place] [address] PCP - General Internal Medicine 08/14/24 documented as of this encounter
--- OUTSIDE RECORDS SUMMARY | 2025-07-09 06:34 | XMS_ITS | Encounter Summary ---
Author Organization [facility] Address [address] [place] [address] Care Team Providers Care Shellacker Name Role Phone Lei Lawton MD Primary Care Provider +1- [phone] Encounter Details Date Type Department Care Team (Late st Contact Info) Description 08/18/2024 Lab Requisition [facility] - Main Lab 299 [facility] [place] [address] Lei Lawton MD [address] [place] [address] Gastro-esophageal reflux disease without esophagitis; Unspecified atrial [...] hypertension documented in this encounter Care Teams Shellacker Relationship Specialty Start Date End Date Lei Lawton MD [address] [place] [address] PCP - General Internal Medicine 08/14/24 documented as of this encounter
--- OUTSIDE RECORDS SUMMARY | 2025-07-09 06:34 | XMS_ITS | Clinical Summary ---
Author Organization 299 [facility] Address [address] [place] [address] Phone Care Team Providers Care Sampler And Test Preparer Name Role Phone Lei Lawton MD Primary Care Provider +1- [phone] Medical History Medical History Date Comments Cataract [...] mmol/L LAB CHEMISTRY METHOD 09/28/2024 12:51 PM [facility] Potassium 3.7 3.5 - 5.5 mmol/L LAB CHEMISTRY METHOD 09/28/2024 12:51 PM [facility] Chloride 100 96 - 110 mmol/L LAB CHEMISTRY METHOD 09/28/2024 12:51 PM [facility] CO2 27 21 - 32 mmol/L LAB CHEMISTRY METHOD 09/28/2024 12:51 PM [facility] Anion Gap 6 3 - 11 LAB CHEMISTRY METHOD 09/28/2024 12:51 PM [facility] Glucose 80 70 - 100 mg/dL LAB CHEMISTRY METHOD 09/28/2024 12:51 PM EST [facility] BUN 8 5 - 25 mg/dL LAB CHEMISTRY METHOD 09/28/2024 12:51 PM [facility] Creatinine 0.53 0.50 - 1.10 mg/dL LAB CHEMISTRY METHOD 09/28/2024 12:51 PM [facility] eGFR 94 >=60 mL/min/1. 73m2 LAB CHEMISTRY METHOD 09/28/2024 12:51 PM [facility] Comment:Calculation based on the Chronic Kidney Disease Epidemiology Collaboration (CKD-EPI) equation refit without adjustment for race. BUN/Creatinine Ratio 15.1 LAB CHEMISTRY METHOD 09/28/2024 12:51 PM [facility] Calcium 8.3(L) 8.5 - 10.5 mg/dL LAB CHEMISTRY METHOD 09/28/2024 12:51 PM [facility] Blood Venous blood specimen / Unknown Venipuncture / Unknown 09/28/2024 5:33 AM EST 09/28/2024 11:37 AM EST Lei Lawton MD LAB BLOOD ORDERABLES Final Result [facility] [address] [place] [address], from Last 3 Months or Most Recently Relevant to Health Maintenance Insurance [facility] [employer]AGE [address] [place] [address] Care Teams Sampler And Test Preparer Relationship Specialty Start Date End Date Lei Lawton MD [address] [place] [address] PCP - General Internal Medicine 08/14/24
--- OUTSIDE RECORDS SUMMARY | 2025-07-09 06:34 | XMS_ITS | Encounter Summary ---
Author [facility] Address [address] [place] [address] Care Team Providers Care Burr Grinder Name Role Phone Lei Lawton MD Primary Care Provider +1- [phone] Encounter Details Date Type Department Care Team (Late st Contact Info) Description 08/14/2024 Lab Requisition [facility] - Main Lab [address] [place] [address] Lei Lawton MD [address] [place] [address] Unspecified atrial fibrillation (CMS/HCC V24, CMS/HCC V28); [...] mmol/L LAB CHEMISTRY METHOD 08/14/2024 12:20 PM [facility] Potassium 3.7 3.5 - 5.5 mmol/L LAB CHEMISTRY METHOD 08/14/2024 12:20 PM [facility] Chloride 102 96 - 110 mmol/L LAB CHEMISTRY METHOD 08/14/2024 12:20 PM [facility] CO2 24 21 - 32 mmol/L LAB CHEMISTRY METHOD 08/14/2024 12:20 PM [facility] Anion Gap 9 3 - 11 LAB CHEMISTRY METHOD 08/14/2024 12:20 PM [facility] Glucose 86 70 - 100 mg/dL LAB CHEMISTRY METHOD 08/14/2024 12:20 PM [facility] BUN 14 5 - 25 mg/dL LAB CHEMISTRY METHOD 08/14/2024 12:20 PM [facility] Creatinine 0.53 0.50 - 1.10 mg/dL LAB CHEMISTRY METHOD 08/14/2024 12:20 PM [facility] eGFR 94 >=60 mL/min/1. 73m2 LAB CHEMISTRY METHOD 08/14/2024 12:20 PM [facility] Comment:Calculation based on the Chronic Kidney Disease Epidemiology Collaboration (CKD-EPI) equation refit without adjustment for race. BUN/Creatinine Ratio 26.4 LAB CHEMISTRY METHOD 08/14/2024 12:20 PM [facility] Calcium 8.2(L) 8.5 - 10.5 mg/dL LAB CHEMISTRY METHOD 08/14/2024 12:20 PM [facility] AST (SGOT) 20 10 - 42 unit/L LAB CHEMISTRY METHOD 08/14/2024 12:20 PM [facility] ALT (SGPT) 16 10 - 60 unit/L LAB CHEMISTRY METHOD 08/14/2024 12:20 PM [facility] Alkaline Phosphatase 137(H) 42 - 121 unit/L LAB CHEMISTRY METHOD 08/14/2024 12:20 PM [facility] Total Protein 5.3(L) 6.0 - 8.0 g/dL LAB CHEMISTRY METHOD 08/14/2024 12:20 PM [facility] Albumin 2.6(L) 3.2 - 5.0 g/dL LAB CHEMISTRY METHOD 08/14/2024 12:20 PM [facility] Total Bilirubin 1.8(H) 0.0 - 1.4 mg/dL LAB CHEMISTRY METHOD 08/14/2024 12:20 PM [facility] Blood Venous blood specimen / Unknown Venipuncture / Unknown 08/14/2024 7:25 AM EST 08/14/2024 10:59 AM EST us Lei Lawton MD LAB BLOOD ORDERABLES Final Result [facility] [address] [place] [address], * (ABNORMAL) Complete blood count (08/14/2024 7:25 AM EST) WBC 6.6 4.8 - 10.8 K/mcL LAB HEMETOLOGY METHOD 08/14/2024 11:47 AM [facility] RBC 3.20(L) 3.80 - 4.80 M/mcL LAB HEMETOLOGY METHOD 08/14/2024 11:47 AM [facility] Hemoglobin 10.8(L) 11.5 - 16.0 g/dL LAB HEMETOLOGY METHOD 08/14/2024 11:47 AM [facility] Hematocrit 33.5(L) 35.0 - 47.0 % LAB HEMETOLOGY METHOD 08/14/2024 11:47 AM [facility] MCV 105.0(H) 79.0 - 98.0 FL LAB HEMETOLOGY METHOD 08/14/2024 11:47 AM [facility] MCH 33.9(H) 27.0 - 32.0 pcg LAB HEMETOLOGY METHOD 08/14/2024 11:47 AM EST [facility] MCHC 32.2 32.0 - 37.0 g/dL LAB HEMETOLOGY METHOD 08/14/2024 11:47 AM [facility] RDW 13.6 11.0 - 15.0 % LAB HEMETOLOGY METHOD 08/14/2024 11:47 AM EST [facility] Platelets 265 130 - 400 K/mcL LAB HEMETOLOGY METHOD 08/14/2024 11:47 AM [facility] MPV 9.5 7.0 - 11.0 FL LAB HEMETOLOGY METHOD 08/14/2024 11:47 AM [facility] NRBC 0.0 <1.0 % LAB HEMETOLOGY METHOD 08/14/2024 11:47 AM [facility] NRBC Absolute 0.00 <0.10 K/mcL LAB HEMETOLOGY METHOD 08/14/2024 11:47 AM [facility] Blood Venous blood specimen / Unknown Venipuncture / Unknown 08/14/2024 7:25 AM EST 08/14/2024 10:59 AM EST Lei Lawton MD LAB BLOOD ORDERABLES Final Result [facility] [address] [place] [address], documented in this encounter Visit Diagnoses Diagnosis Unspecified atrial fibrillation (CMS/HCC V24, CMS/HCC V28) Essential (primary) hypertension Unspecified essential hypertension documented in this encounter Care Teams Burr Grinder Relationship Specialty Start Date End Date Lei Lawton MD [address] [place] [address] PCP - General Internal Medicine 08/14/24 documented as of this encounter
--- OUTSIDE RECORDS SUMMARY | 2025-07-09 06:34 | XMS_ITS | Encounter Summary ---
Author Organization [facility] Address [address] [place] [address] Care Team Providers Care Access Control Officer Name Role Phone Lei Lawton MD Primary Care Provider +1- [phone] Encounter Details Date Type Department Care Team (Late st Contact Info) Description 10/01/2024 Lab Requisition [facility] - Main Lab [address] [facility] [place] [address] eLi Lawton MD [address] [place] [address] Essential (primary) hypertension; Unspecified atrial fibrillation (CMS/HCC [...] esophagitis documented in this encounter Care Teams Access Control Officer Relationship Specialty Start Date End Date Lei Lawton MD [address] [place] [address] PCP - General Internal Medicine 08/14/24 documented as of this encounter
--- OUTSIDE RECORDS SUMMARY | 2025-07-09 06:35 | XMS_ITS | Patient Health Record ---
Author Organization [facility] Address [address] [place] [address] Care Team Providers Care Supervisor Wood Crew Name Role Phone Hua HORN, Aleta Primary Care Provider J Luis Mehta Jr Unavailable [phone] Allergies Allergen (clinical drug ingredient) Drug/Non Drug [...] Status Risk Notes Problem Colon cancer screening (072921247) Colon cancer screening (Z12.11) Active confirmed Problem Rectal bleeding (47719883) Rectal bleeding (K62.5) Active confirmed Problem Primary biliary cirrhosis (29255072) Primary biliary cirrhosis (K74.3) Active confirmed Problem Abnormal findings diagnostic imaging of liver and biliary tract (718898681) Abnormal x-ray of liver (R93.2) Active confirmed Problem Biliary cirrhosis (4018522) Biliary cirrhosis (K74.5) Active confirmed Plan Of [...] Insured Coverage Start Date Coverage End Date [facility] [address] [place] [address] [id number] RODDY LAKHANI Self - patient is the [...]
--- OUTSIDE RECORDS SUMMARY | 2025-07-09 06:35 | XMS_ITS | Encounter Summary ---
Author Organization [facility] Address [address] [place] [address] Care Team Providers Care Threshing Operator Name Role Phone Lei Lawton MD Primary Care Provider +1- [phone] Encounter Details Date Type Department Care Team (Late st Contact Info) Description 09/03/2024 Lab Requisition [facility] - Main Lab [address] [facility] [place] [address] Lei Lawton MD [address] [place] [address] Gastro-esophageal reflux disease without esophagitis; Unspecified atrial [...] mmol/L LAB CHEMISTRY METHOD 09/04/2024 2:54 PM [facility] Potassium 3.8 3.5 - 5.5 mmol/L LAB CHEMISTRY METHOD 09/04/2024 2:54 PM [facility] Chloride 103 96 - 110 mmol/L LAB CHEMISTRY METHOD 09/04/2024 2:54 PM [facility] CO2 26 21 - 32 mmol/L LAB CHEMISTRY METHOD 09/04/2024 2:54 PM [facility] Anion Gap 7 3 - 11 LAB CHEMISTRY METHOD 09/04/2024 2:54 PM [facility] Glucose 126(H) 70 - 100 mg/dL LAB CHEMISTRY METHOD 09/04/2024 2:54 PM [facility] BUN 4(L) 5 - 25 mg/dL LAB CHEMISTRY METHOD 09/04/2024 2:54 PM [facility] Creatinine 0.53 0.50 - 1.10 mg/dL LAB CHEMISTRY METHOD 09/04/2024 2:54 PM [facility] eGFR 94 >=60 mL/min/1. 73m2 LAB CHEMISTRY METHOD 09/04/2024 2:54 PM [facility] Comment:Calculation based on the Chronic Kidney Disease Epidemiology Collaboration (CKD-EPI) equation refit without adjustment for race. BUN/Creatinine Ratio 7.5 LAB CHEMISTRY METHOD 09/04/2024 2:54 PM [facility] Calcium 7.8(L) 8.5 - 10.5 mg/dL LAB CHEMISTRY METHOD 09/04/2024 2:54 PM [facility] Blood Venous blood specimen / Unknown Venipuncture / Unknown 09/04/2024 8:57 AM EST 09/04/2024 12:18 PM EST us Lei Lawton MD LAB BLOOD ORDERABLES Final Result [facility] [address] [place] [address], * (ABNORMAL) Complete blood count (09/04/2024 8:57 AM EST) [facility] WBC 5.0 4.8 - 10.8 K/mcL LAB HEMETOLOGY METHOD 09/04/2024 1:50 PM EST [facility] RBC 3.70(L) 3.80 - 4.80 M/mcL LAB HEMETOLOGY METHOD 09/04/2024 1:50 PM EST [facility] Hemoglobin 11.7 11.5 - 16.0 g/dL LAB HEMETOLOGY METHOD 09/04/2024 1:50 PM EST [facility] Hematocrit 37.5 35.0 - 47.0 % LAB HEMETOLOGY METHOD 09/04/2024 1:50 PM EST [facility] MCV 101.6(H) 79.0 - 98.0 FL LAB HEMETOLOGY METHOD 09/04/2024 1:50 PM EST [facility] MCH 31.7 27.0 - 32.0 pcg LAB HEMETOLOGY METHOD 09/04/2024 1:50 PM EST [facility] MCHC 31.2(L) 32.0 - 37.0 g/dL LAB HEMETOLOGY METHOD 09/04/2024 1:50 PM EST [facility] RDW 14.1 11.0 - 15.0 % LAB HEMETOLOGY METHOD 09/04/2024 1:50 PM EST [facility] Platelets 313 130 - 400 K/mcL LAB HEMETOLOGY METHOD 09/04/2024 1:50 PM EST [facility] MPV 8.5 7.0 - 11.0 FL LAB HEMETOLOGY METHOD 09/04/2024 1:50 PM EST [facility] NRBC 0.0 <1.0 % LAB HEMETOLOGY METHOD 09/04/2024 1:50 PM EST [facility] NRBC Absolute 0.00 <0.10 K/mcL LAB HEMETOLOGY METHOD 09/04/2024 1:50 PM EST [facility] Blood Venous blood specimen / Unknown Venipuncture / Unknown 09/04/2024 8:57 AM EST 09/04/2024 12:18 PM EST us Lei Lawton MD LAB BLOOD ORDERABLES Final Result [facility] [address] [place] [address], documented in this encounter Visit Diagnoses Diagnosis Gastro-esophageal reflux disease without esophagitis Unspecified atrial fibrillation (CMS/HCC V24, CMS/HCC V28) Essential (primary) hypertension Unspecified essential hypertension documented in this encounter Care Teams Threshing Operator Relationship Specialty Start Date End Date Lei Lawton MD [address] [place] [id number] PCP - General Internal Medicine 08/14/24 documented as of this encounter
--- OUTSIDE RECORDS SUMMARY | 2025-07-09 06:35 | XMS_ITS | Clinical Summary ---
Author Organization [facility] Address [address] [place] [address] Care Team Providers Care Starting Gate Driver Name Role Phone Unavailable Primary Care Provider Unavailabl e Social History Tobacco Use Types Packs/Day Years Used Date Smoking Tobacco: Never Assessed Sex and Gender Information Value Date Recorded Sex Assigned at Not on file Gender Identity Not on file Sexual Orientation Not on file Plan of Treatment Not on file
--- OUTSIDE RECORDS SUMMARY | 2025-07-09 06:35 | XMS_ITS | Encounter Summary ---
Author Organization [facility] Address [address] [place] [address] Care Team Providers Care Machine Design Teacher Name Role Phone Lei Lawton MD Primary Care Provider +1- [phone] Encounter Details Date Type Department Care Team (Late st Contact Info) Description 09/09/[address] [facility] - Main Lab 299 [facility] [place] [address] Lei Lawton MD [address] [place] [address] Gastro-esophageal reflux disease without esophagitis; Unspecified atrial [...] mmol/L LAB CHEMISTRY METHOD 09/11/2024 11:36 AM [facility] Potassium 4.0 3.5 - 5.5 mmol/L LAB CHEMISTRY METHOD 09/11/2024 11:36 AM [facility] Chloride 102 96 - 110 mmol/L LAB CHEMISTRY METHOD 09/11/2024 11:36 AM [facility] CO2 24 21 - 32 mmol/L LAB CHEMISTRY METHOD 09/11/2024 11:36 AM [facility] Anion Gap 6 3 - 11 LAB CHEMISTRY METHOD 09/11/2024 11:36 AM [facility] Glucose 85 70 - 100 mg/dL LAB CHEMISTRY METHOD 09/11/2024 11:36 AM [facility] BUN 8 5 - 25 mg/dL LAB CHEMISTRY METHOD 09/11/2024 11:36 AM [facility] Creatinine 0.47(L) 0.50 - 1.10 mg/dL LAB CHEMISTRY METHOD 09/11/2024 11:36 AM [facility] eGFR 97 >=60 mL/min/1. 73m2 LAB CHEMISTRY METHOD 09/11/2024 11:36 AM [facility] Comment:Calculation based on the Chronic Kidney Disease Epidemiology Collaboration (CKD-EPI) equation refit without adjustment for race. BUN/Creatinine Ratio 17.0 LAB CHEMISTRY METHOD 09/11/2024 11:36 AM [facility] Calcium 8.3(L) 8.5 - 10.5 mg/dL LAB CHEMISTRY METHOD 09/11/2024 11:36 AM [facility] Blood Venous blood specimen / Unknown Venipuncture / Unknown 09/11/2024 7:33 AM EST 09/11/2024 10:46 AM EST us Lei Lawton MD LAB BLOOD ORDERABLES Final Result [facility] [address] [place] [address], * (ABNORMAL) Complete blood count (09/11/2024 7:33 AM EST) [facility] Signature WBC 5.3 4.8 - 10.8 K/mcL LAB HEMETOLOGY METHOD 09/11/2024 11:37 AM [facility] RBC 3.50(L) 3.80 - 4.80 M/mcL LAB HEMETOLOGY METHOD 09/11/2024 11:37 AM [facility] Hemoglobin 10.8(L) 11.5 - 16.0 g/dL LAB HEMETOLOGY METHOD 09/11/2024 11:37 AM [facility] Hematocrit 33.8(L) 35.0 - 47.0 % LAB HEMETOLOGY METHOD 09/11/2024 11:37 AM [facility] MCV 97.1 79.0 - 98.0 FL LAB HEMETOLOGY METHOD 09/11/2024 11:37 AM [facility] MCH 31.0 27.0 - 32.0 pcg LAB HEMETOLOGY METHOD 09/11/2024 11:37 AM [facility] MCHC 32.0 32.0 - 37.0 g/dL LAB HEMETOLOGY METHOD 09/11/2024 11:37 AM [facility] RDW 13.8 11.0 - 15.0 % LAB HEMETOLOGY METHOD 09/11/2024 11:37 AM [facility] Platelets 269 130 - 400 K/mcL LAB HEMETOLOGY METHOD 09/11/2024 11:37 AM [facility] MPV 8.5 7.0 - 11.0 FL LAB HEMETOLOGY METHOD 09/11/2024 11:37 AM [facility] NRBC 0.0 <1.0 % LAB HEMETOLOGY METHOD 09/11/2024 11:37 AM EST [facility] NRBC Absolute 0.00 <0.10 K/mcL LAB HEMETOLOGY METHOD 09/11/2024 11:37 AM EST [facility] Blood Venous blood specimen / Unknown Venipuncture / Unknown 09/11/2024 7:33 AM EST 09/11/2024 10:50 AM EST us Lei Lawton MD LAB BLOOD ORDERABLES Final Result [facility] [address] [place] [address], documented in this encounter Visit Diagnoses Diagnosis Gastro-esophageal reflux disease without esophagitis Unspecified atrial fibrillation (CMS/HCC V24, CMS/HCC V28) Essential (primary) hypertension Unspecified essential hypertension documented in this encounter Care Teams Machine Design Teacher Relationship Specialty Start Date End Date Lei Lawton MD [address] [place] [id number] PCP - General Internal Medicine 08/14/24 documented as of this encounter
--- OUTSIDE RECORDS SUMMARY | 2025-07-09 06:35 | XMS_ITS | Encounter Summary ---
Author Organization [facility] Address [address] [place] [address] Care Team Providers Care Mechanical Door Repairer Name Role Phone Lei Lawton MD Primary Care Provider +1- [phone] Encounter Details Date Type Department Care Team (Late st Contact Info) Description 08/26/2024 Lab Requisition [facility] - Main Lab [address] [facility] [place] [address] Lei Lawton MD [address] [place] [address] Gastro-esophageal reflux disease without esophagitis; Unspecified atrial [...] mmol/L LAB CHEMISTRY METHOD 08/28/2024 12:15 PM [facility] Potassium 4.3 3.5 - 5.5 mmol/L LAB CHEMISTRY METHOD 08/28/2024 12:15 PM [facility] Chloride 100 96 - 110 mmol/L LAB CHEMISTRY METHOD 08/28/2024 12:15 PM [facility] CO2 25 21 - 32 mmol/L LAB CHEMISTRY METHOD 08/28/2024 12:15 PM [facility] Anion Gap 7 3 - 11 LAB CHEMISTRY METHOD 08/28/2024 12:15 PM [facility] Glucose 108(H) 70 - 100 mg/dL LAB CHEMISTRY METHOD 08/28/2024 12:15 PM [facility] BUN 8 5 - 25 mg/dL LAB CHEMISTRY METHOD 08/28/2024 12:15 PM [facility] Creatinine 0.47(L) 0.50 - 1.10 mg/dL LAB CHEMISTRY METHOD 08/28/2024 12:15 PM [facility] eGFR 97 >=60 mL/min/1. 73m2 LAB CHEMISTRY METHOD 08/28/2024 12:15 PM [facility] Comment:Calculation based on the Chronic Kidney Disease Epidemiology Collaboration (CKD-EPI) equation refit without adjustment for race. BUN/Creatinine Ratio 17.0 LAB CHEMISTRY METHOD 08/28/2024 12:15 PM [facility] Calcium 8.0(L) 8.5 - 10.5 mg/dL LAB CHEMISTRY METHOD 08/28/2024 12:15 PM [facility] Blood Venous blood specimen / Unknown Venipuncture / Unknown 08/28/2024 8:14 AM EST 08/28/2024 11:10 AM EST us Lei Lawton MD LAB BLOOD ORDERABLES Final Result [facility] [address] [place] [address], * (ABNORMAL) Complete blood count (08/28/2024 8:14 AM EST) WBC 6.3 4.8 - 10.8 K/mcL LAB HEMETOLOGY METHOD 08/28/2024 11:41 AM [facility] RBC 3.20(L) 3.80 - 4.80 M/mcL LAB HEMETOLOGY METHOD 08/28/2024 11:41 AM [facility] Hemoglobin 10.3(L) 11.5 - 16.0 g/dL LAB HEMETOLOGY METHOD 08/28/2024 11:41 AM [facility] Hematocrit 32.4(L) 35.0 - 47.0 % LAB HEMETOLOGY METHOD 08/28/2024 11:41 AM [facility] MCV 102.9(H) 79.0 - 98.0 FL LAB HEMETOLOGY METHOD 08/28/2024 11:41 AM [facility] MCH 32.7(H) 27.0 - 32.0 pcg LAB HEMETOLOGY METHOD 08/28/2024 11:41 AM [facility] LAB MCHC 31.8(L) 32.0 - 37.0 g/dL LAB HEMETOLOGY METHOD 08/28/2024 11:41 AM [facility] RDW 14.2 11.0 - 15.0 % LAB HEMETOLOGY METHOD 08/28/2024 11:41 AM [facility] Platelets 315 130 - 400 K/mcL LAB HEMETOLOGY METHOD 08/28/2024 11:41 AM [facility] MPV 8.7 7.0 - [...] [facility] [address] [place] [address], documented in this encounter Visit Diagnoses Diagnosis Gastro-esophageal reflux disease without esophagitis Unspecified atrial fibrillation (CMS/HCC V24, CMS/HCC V28) Essential (primary) hypertension Unspecified essential hypertension documented in this encounter Care Teams Mechanical Door Repairer Relationship Specialty Start Date End Date Lei Lawton MD [address] [place] [address] PCP - General Internal Medicine 08/14/24 documented as of this encounter
[2025-07-09 07:05] LABS: Hematocrit 26.7 % (37.0-47.0); Hemoglobin 8.1 g/dl (12.0-16.0); Imm Gran Abs Auto 0.02 X10*3/uL (0.00-0.03); Imm Gran Pct Auto 0.3 % (0.0-0.4); Lymphocytes Absolute Auto 1.4 X10*3/uL (1.2-4.9); Mean Corpuscular HGB Conc 30.3 g/dl (31.0-35.0); Mean Corpuscular Hemoglobin 27.1 pg (27.0-33.0); Mean Corpuscular Volume 89.3 fL (80.0-98.0); NRBC Abs Auto 0.000 X10*3/uL (0.0-0.012); NRBC Pct Auto 0.0 /100WBC (0.0-0.2); Platelet Count 193 X10*3/uL (160-400); Red Blood Count 2.99 X10*6/uL (4.20-5.50); White Blood Count 6.6 X10*3/uL (4.8-10.8)
[2025-07-09 07:11] LABS: Anion Gap 12 (12-20); Blood Urea Nitrogen 24 mg/dL (9-16); Calcium 7.9 mg/dL (8.4-10.2); Carbon Dioxide 21 mmol/L (22-29); Chloride 111 mmol/L (96-108); Estimated Glomerular Filt Rate 36; Potassium 3.0 mmol/L (3.3-5.1); Sodium 141 mmol/L (135-145)
== END 2025-07-09 06:30 | disposition home or self-care (01) ==
LOC: HO.MMNH2L 06:29
PROVIDERS: Visit Provider Physician Assistant Medical
DX: Z13.89 Encounter for screening for other disorder (principal)
CPT/HCPCS: 36415; 80048; 85025

== ENCOUNTER 2025-07-16 08:34 | Outpatient (REF) | payer MEDICARE, SELFPAY ==
--- OUTSIDE RECORDS SUMMARY | 2025-07-14 23:59 | XMS_ITS | Continuity of Care Document ---
Author Organization [facility] Address [address] [place] [address]- Care Team Providers Care Business Services Director Name Role Phone Lynette Martinez Primary Care P jose g Encounter [facility] Date(s): 06/14/25 - 07/14/[address] [address]- Encounter Type: Triage Allergies, Adverse Reactions, Alerts [...] n tetanus-diphtheria toxoids (Td) 2 06/15/24 Given [id number] 12y+ bivalent booster vax 06/12/22 Recorded SARS-CoV-2 mRNA ([id number]) vax 11/25/21 Recorded SARS-CoV-2 (COVID-19) mRNA BNT-162b2 vac 05/12/21 Recorded SARS-CoV-2 (COVID-19) mRNA BNT-162b2 vac 10/19/20 Recorded SARS-CoV-2 (COVID-19) mRNA BNT-162b2 vac 09/28/20 Recorded pneumococcal 23-valent vaccine 3 08/04/12 Given 1Result Comment: [facility]# [id number] 2Result Comment: [facility]# [id number] 3Admin Note: administered by Aleta Medications acetaminophen [...] Refills, Maintenance, 05/09/25 2:08:00 PM EDT, Tablet, [facility] #[id number], Partial fill upon patient request if [...] 3 Refills, Maintenance, 07/28/24 4:57:00 PM EST, [facility]pharm[facility] #[id number], 168, cm, 07/19/24 15:37:00 EST, Height, [...] 9:16:00 AM EST, Route to Pharmacy Electronically, [facility]/pharm[facility] #[id number], Partial fill upon patient request if [...] 0 Refills, Maintenance, 06/04/25 1:10:00PM EDT, Tablet, [facility]/pharm[facility] #[id number], Partial fill upon patient request if [...] Refills, Maintenance, 04/23/25 4:56:00 PM EDT, Tablet, [facility]pharm[facility] #[id number], Partial fill upon patient request if [...] 7:33:00 AM EDT, Route to Pharmacy Electronically, [id number], 168, cm, 04/06/25 0:26:00 EDT, Height, 68.2, [...] loss Confirmed Active [facility] INVOK[facility] BY [facility] ANTONI DARNELL Social History Social History Type [...] Care Nurse Name: Pilar Marques RN Position: [facility] RN Member Role: Primary Care Nurse Name: Mark Anthony Díaz RN Position: [facility] RN Member Role: Primary Care Nurse Name: Meliza Box RN Position: [facility] RN Member Role: Primary Care Nurse Name: Galindo Jade RN Position: [facility] RN Member Role: Primary Care Nurse Name: Eloise Sadler RN Position: [facility] RN Member Role: Primary Care Nurse Name: Delfino Franz RN Position: [facility] RN Member Role: Primary Care Nurse Name: Nessa Tom RN Position: [facility] RN Member Role: Primary Care Nurse Name: Lili Flores RN Position: [facility] RN Member Role: Primary Care Nurse Name: Gwyn Gallegos RN Position: [facility] RN Member Role: Primary Care Nurse Name: Santa Waller RN Position: [facility] RN Member Role: Primary Care Nurse Name: Yashira Arnold Position: [facility] [place] Housekeeper Manager Member Role: Counter Roller Name: Karli Wilson RN Position: [facility] RN Member Role: Primary Care Nurse Name: Gennaro Oliver RN Position: [facility] SN RN Member Role: Primary Care Nurse Name: Chela Kidd RN Position: [facility] RN Member Role: Primary Care Nurse Name: Vivi Gil RN Position: [facility] RN Member Role: Primary Care Nurse Name: Lynette Martinez Position: [facility] PCO Associate Professional Member Role: PCP Address: [address] [place] [address]. [address] Telecom: Name: Dionne Bhatt RN Position: [facility] RN Member Role: Primary Care Nurse Name: Monalisa Ragsdale RN Position: [facility] RN Member Role: Primary Care Nurse Name: Delmy Taveras RN Position: [facility] RN Member Role: Primary Care Nurse Name: Sonja Ng LPN Position: [facility] RN Member Role: Primary Care Nurse Care Team Related Persons Name: PARAS LAKHANI Name: BLUE BRIONES Name: CARIE SCHAEFER Insurance Providers Guarantor name: [facility] Plan Information #: 1 Payer: [employer] HMO Payer Identifier: NA Member Number: [id number] Group Number: [id number] Subscriber Identifier: NA Relationship to Subscriber: self Coverage Type: Medicare HMO Coverage Verification Date: NA Telecom: TONY Address: NA
[2025-07-16 07:49] LABS: MANUAL DIFF FLAG NO
[2025-07-16 08:02] LABS: Hematocrit 29.2 % (37.0-47.0); Hemoglobin 8.8 g/dl (12.0-16.0); Imm Gran Abs Auto 0.02 X10*3/uL (0.00-0.03); Imm Gran Pct Auto 0.4 % (0.0-0.4); Lymphocytes Absolute Auto 1.2 X10*3/uL (1.2-4.9); Mean Corpuscular HGB Conc 30.1 g/dl (31.0-35.0); Mean Corpuscular Hemoglobin 27.8 pg (27.0-33.0); Mean Corpuscular Volume 92.4 fL (80.0-98.0); NRBC Abs Auto 0.000 X10*3/uL (0.0-0.012); NRBC Pct Auto 0.0 /100WBC (0.0-0.2); Platelet Count 165 X10*3/uL (160-400); Red Blood Count 3.16 X10*6/uL (4.20-5.50); White Blood Count 5.6 X10*3/uL (4.8-10.8)
[2025-07-16 08:31] LABS: Anion Gap 14 (12-20); Blood Urea Nitrogen 25 mg/dL (9-16); Calcium 8.2 mg/dL (8.4-10.2); Carbon Dioxide 21 mmol/L (22-29); Chloride 112 mmol/L (96-108); Estimated Glomerular Filt Rate 30; Potassium 3.9 mmol/L (3.3-5.1); Sodium 143 mmol/L (135-145)
--- OUTSIDE RECORDS SUMMARY | 2025-07-16 08:54 | XMS_ITS | Encounter Summary ---
Author Organization [facility] Address [address] [place] [address] Care Team Providers Care Wire Threader Name Role Phone Lei Lawton MD Primary Care Provider +1- [phone] Encounter Details Date Type Department Care Team (Late st Contact Info) Description 09/16/2024 Lab Requisition [facility] - Main Lab 299 [facility] [place] [address] Lei Lawton MD [address] [place] [address] Gastro-esophageal reflux disease without esophagitis; Unspecified atrial [...] hypertension documented in this encounter Care Teams Wire Threader Relationship Specialty Start Date End Date Lei Lawton MD [address] [place] [address] PCP - General Internal Medicine 08/14/24 documented as of this encounter
--- OUTSIDE RECORDS SUMMARY | 2025-07-16 08:55 | XMS_ITS | Clinical Summary ---
Author Organization 299 [facility] Address [address] [place] [address] Phone Care Team Providers Care Utility Bagger Name Role Phone Lei Lawton MD Primary Care Provider +1- [phone] Medical History Medical History Date Comments Cataract [...] mmol/L LAB CHEMISTRY METHOD 09/28/2024 12:[address] [facility] Potassium 3.7 3.5 - 5.5 mmol/L LAB CHEMISTRY METHOD 09/28/2024 12:[address] [facility] Chloride 100 96 - 110 mmol/L LAB CHEMISTRY METHOD 09/28/2024 12:[address] [facility] CO2 27 21 - 32 mmol/L LAB CHEMISTRY METHOD 09/28/2024 12:[address] [facility] Anion Gap 6 3 - 11 LAB CHEMISTRY METHOD 09/28/2024 12:[address] [facility] Glucose 80 70 - 100 mg/dL LAB CHEMISTRY METHOD 09/28/2024 12:[address] [facility] BUN 8 5 - 25 mg/dL LAB CHEMISTRY METHOD 09/28/2024 12:[address] [facility] Creatinine 0.53 0.50 - 1.10 mg/dL LAB CHEMISTRY METHOD 09/28/2024 12:[address] [facility] eGFR 94 >=60 mL/min/1. 73m2 LAB CHEMISTRY METHOD 09/28/2024 12:[address] [facility] Comment:Calculation based on the Chronic Kidney Disease Epidemiology Collaboration (CKD-EPI) equation refit without adjustment for race. BUN/Creatinine Ratio 15.1 LAB CHEMISTRY METHOD 09/28/2024 12:[address] [facility] Calcium 8.3(L) 8.5 - 10.5 mg/dL LAB CHEMISTRY METHOD 09/28/2024 12:[address] [facility] Blood Venous blood specimen / Unknown Venipuncture / Unknown 09/28/2024 5:33 AM EST 09/28/2024 11:37 AM EST Lei Lawton MD LAB BLOOD ORDERABLES Final Result [facility] [address] [place] [address], from Last 3 Months or Most Recently Relevant to Health Maintenance Insurance [facility] [employer] [address] [place] [address] Care Teams Utility Bagger Relationship Specialty Start Date End Date Lei Lawton MD [address] [place] [address] PCP - General Internal Medicine 08/14/24
--- OUTSIDE RECORDS SUMMARY | 2025-07-16 08:55 | XMS_ITS | Encounter Summary ---
Author Organization [facility] Address [address] [place] [address] Care Team Providers Care Metal Fabricating Supervisor Name Role Phone Lei Lawton MD Primary Care Provider +1- [phone] Encounter Details Date Type Department Care Team (Late st Contact Info) Description 09/24/2024 Lab Requisition [facility] - Main Lab [address] [facility] [place] [address] Lei Lawton MD [address] [place] [address] Essential (primary) hypertension; Unspecified atrial fibrillation (CMS/HCC [...] mmol/L LAB CHEMISTRY METHOD 09/25/2024 1:12 PM [facility] Potassium 4.3 3.5 - 5.5 mmol/L LAB CHEMISTRY METHOD 09/25/2024 1:12 PM [facility] Chloride 99 96 - 110 mmol/L LAB CHEMISTRY METHOD 09/25/2024 1:12 PM [facility] CO2 25 21 - 32 mmol/L LAB CHEMISTRY METHOD 09/25/2024 1:12 PM [facility] Anion Gap 7 3 - 11 LAB CHEMISTRY METHOD 09/25/2024 1:12 PM [facility] Glucose 118(H) 70 - 100 mg/dL LAB CHEMISTRY METHOD 09/25/2024 1:12 PM [facility] BUN 8 5 - 25 mg/dL LAB CHEMISTRY METHOD 09/25/2024 1:12 PM [facility] Creatinine 0.53 0.50 - 1.10 mg/dL LAB CHEMISTRY METHOD 09/25/2024 1:12 PM [facility] eGFR 94 >=60 mL/min/1. 73m2 LAB CHEMISTRY METHOD 09/25/2024 1:12 PM [facility] Comment:Calculation based on the Chronic Kidney Disease Epidemiology Collaboration (CKD-EPI) equation refit without adjustment for race. BUN/Creatinine Ratio 15.1 LAB CHEMISTRY METHOD 09/25/2024 1:12 PM [facility] Calcium 8.4(L) 8.5 - 10.5 mg/dL LAB CHEMISTRY METHOD 09/25/2024 1:12 PM [facility] Blood Venous blood specimen / Unknown Venipuncture / Unknown 09/25/2024 8:40 AM EST 09/25/2024 11:11 AM EST us Lei Lawton MD LAB BLOOD ORDERABLES Final Result [facility] [address] [place] [address], * (ABNORMAL) Complete blood count (09/25/2024 8:40 AM EST) [facility] Signature WBC 3.8(L) 4.8 - 10.8 K/mcL LAB HEMETOLOGY METHOD 09/25/2024 2:09 PM [facility] RBC 3.50(L) 3.80 - 4.80 M/mcL LAB HEMETOLOGY METHOD 09/25/2024 2:09 PM [facility] Hemoglobin 10.9(L) 11.5 - 16.0 g/dL LAB HEMETOLOGY METHOD 09/25/2024 2:09 PM [facility] Hematocrit 33.6(L) 35.0 - 47.0 % LAB HEMETOLOGY METHOD 09/25/2024 2:09 PM EST [facility] MCV 96.3 79.0 - 98.0 FL LAB HEMETOLOGY METHOD 09/25/2024 2:09 PM [facility] MCH 31.2 27.0 - 32.0 pcg LAB HEMETOLOGY METHOD 09/25/2024 2:09 PM [facility] MCHC 32.4 32.0 - 37.0 g/dL LAB HEMETOLOGY METHOD 09/25/2024 2:09 PM [facility] RDW 13.9 11.0 - 15.0 % LAB HEMETOLOGY METHOD 09/25/2024 2:09 PM [facility] Platelets 202 130 - 400 K/mcL LAB HEMETOLOGY METHOD 09/25/2024 2:09 PM [facility] MPV 9.0 7.0 - 11.0 FL LAB HEMETOLOGY METHOD 09/25/2024 2:09 PM [facility] NRBC 0.0 <1.0 % LAB HEMETOLOGY METHOD 09/25/2024 2:09 PM EST [facility] NRBC Absolute 0.00 <0.10 K/mcL LAB HEMETOLOGY METHOD 09/25/2024 2:09 PM EST [facility] Blood Venous blood specimen / Unknown Venipuncture / Unknown 09/25/2024 8:40 AM EST 09/25/2024 11:11 AM EST us Lei Lawton MD LAB BLOOD ORDERABLES Final Result [facility] [address] [place] [address], documented in this encounter Visit Diagnoses Diagnosis Essential (primary) hypertension Unspecified essential hypertension Unspecified atrial fibrillation (CMS/HCC V24, CMS/HCC V28) Gastro-esophageal reflux disease without esophagitis documented in this encounter Care Teams Metal Fabricating Supervisor Relationship Specialty Start Date End Date Lei Lawton MD [address] [place] [address] PCP - General Internal Medicine 08/14/24 documented as of this encounter
--- OUTSIDE RECORDS SUMMARY | 2025-07-16 08:55 | XMS_ITS | Encounter Summary ---
Author Organization [facility] [place] [address] Care Team Providers Care Senior Engineering Team Leader Name Role Phone Lei Lawton MD Primary Care Provider +1- [phone] Encounter Details Date Type Department Care Team (Late st Contact Info) Description 09/28/2024 Lab Requisition [facility] - Main Lab [address] [facility] [place] [address] Lei Lawton MD [address] [place] [address] Weakness; Shortness of breath Social History Tobacco [...] LAB CHEMISTRY METHOD 09/28/2024 12:51 PM EST [facility] Blood Venous blood specimen / Unknown Venipuncture / Unknown 09/28/2024 5:33 AM EST 09/28/2024 11:37 AM EST Lei Lawton MD LAB BLOOD ORDERABLES Final Result Performing Organization Address City/[facility]/ZIP Co de Phone Number [facility] [address] [place] [address], [place] [phone] * (ABNORMAL) B-type natriuretic peptide (09/28/2024 5:33 AM EST) BNP 254(H) <=100 pcg/mL LAB CHEMISTRY METHOD 09/28/2024 12:52 PM [facility] Blood Venous blood specimen / Unknown Venipuncture / Unknown 09/28/2024 5:33 AM EST 09/28/2024 11:37 AM EST Lei Lawton MD LAB BLOOD ORDERABLES Final Result Performing Organization Address City/[facility]/ZIP Co de Phone Number [facility] [address] [place] [address], [place] [phone] * (ABNORMAL) Basic metabolic panel (09/28/2024 5:33 AM EST) Sodium 133 133 - 145 mmol/L LAB CHEMISTRY METHOD 09/28/2024 12:51 PM [facility] Potassium 3.7 3.5 - 5.5 mmol/L LAB CHEMISTRY METHOD 09/28/2024 12:51 PM [facility] Chloride 100 96 - 110 mmol/L LAB CHEMISTRY METHOD 09/28/2024 12:51 PM [facility] CO2 27 21 - 32 mmol/L LAB CHEMISTRY METHOD 09/28/2024 12:51 PM [facility] Anion Gap 6 3 - 11 LAB CHEMISTRY METHOD 09/28/2024 12:51 PM [facility] Glucose 80 70 - 100 mg/dL LAB CHEMISTRY METHOD 09/28/2024 12:51 PM [facility] BUN 8 5 - 25 mg/dL LAB CHEMISTRY METHOD 09/28/2024 12:51 PM [facility] Creatinine 0.53 0.50 - 1.10 mg/dL LAB CHEMISTRY METHOD 09/28/2024 12:51 PM [facility] eGFR 94 >=60 mL/min/1. 73m2 LAB CHEMISTRY METHOD 09/28/2024 12:51 PM [facility] Comment:Calculation based on the Chronic Kidney Disease Epidemiology Collaboration (CKD-EPI) equation refit without adjustment for race. BUN/Creatinine Ratio 15.1 LAB CHEMISTRY METHOD 09/28/2024 12:51 PM [facility] Calcium 8.3(L) 8.5 - 10.5 mg/dL LAB CHEMISTRY METHOD 09/28/2024 12:51 PM [facility] Blood Venous blood specimen / Unknown Venipuncture / Unknown 09/28/2024 5:33 AM EST 09/28/2024 11:37 AM EST us Lei Lawton MD LAB BLOOD ORDERABLES Final Result [facility] [address] [place] [address], documented in this encounter Visit Diagnoses Diagnosis Weakness Other malaise and fatigue Shortness of breath documented in this encounter Care Teams Senior Engineering Team Leader Relationship Specialty Start Date End Date Lei Lawton MD [address] [place] [address] PCP - General Internal Medicine 08/14/24 documented as of this encounter
--- OUTSIDE RECORDS SUMMARY | 2025-07-16 08:55 | XMS_ITS | Encounter Summary ---
Author Organization [facility] Address [address] [place] [address] Care Team Providers Care Manager Search Name Role Phone Lei Lawton MD Primary Care Provider +1- [phone] Encounter Details Date Type Department Care Team (Late st Contact Info) Description 10/01/2024 Lab Requisition [facility] - Main Lab [address] [facility] [place] [address] Lei Lawton MD [address] [place] [address] Essential (primary) hypertension; Unspecified atrial fibrillation (CMS/HCC [...] esophagitis documented in this encounter Care Teams Manager Search Relationship Specialty Start Date End Date Lei Lawton MD [address] [place] [address] PCP - General Internal Medicine 08/14/24 documented as of this encounter
--- OUTSIDE RECORDS SUMMARY | 2025-07-16 08:55 | XMS_ITS | Encounter Summary ---
Author Organization [facility] Address [address] [place] [address] Care Team Providers Care Insole And Heel Stiffener Name Role Phone Lei Lawton MD Primary Care Provider +1- [phone] Encounter Details Date Type Department Care Team (Late st Contact Info) Description 08/26/2024 Lab Requisition [facility] - Main Lab [address] [facility] [place] [address] Lei Lawton MD [address] [place] [address] Gastro-esophageal reflux disease without esophagitis; Unspecified atrial [...] mmol/L LAB CHEMISTRY METHOD 08/28/2024 12:15 PM [facility] Potassium 4.3 3.5 - 5.5 mmol/L LAB CHEMISTRY METHOD 08/28/2024 12:15 PM [facility] Chloride 100 96 - 110 mmol/L LAB CHEMISTRY METHOD 08/28/2024 12:15 PM [facility] CO2 25 21 - 32 mmol/L LAB CHEMISTRY METHOD 08/28/2024 12:15 PM [facility] Anion Gap 7 3 - 11 LAB CHEMISTRY METHOD 08/28/2024 12:15 PM [facility] Glucose 108(H) 70 - 100 mg/dL LAB CHEMISTRY METHOD 08/28/2024 12:15 PM [facility] BUN 8 5 - 25 mg/dL LAB CHEMISTRY METHOD 08/28/2024 12:15 PM [facility] Creatinine 0.47(L) 0.50 - 1.10 mg/dL LAB CHEMISTRY METHOD 08/28/2024 12:15 PM [facility] eGFR 97 >=60 mL/min/1. 73m2 LAB CHEMISTRY METHOD 08/28/2024 12:15 PM [facility] Comment:Calculation based on the Chronic Kidney Disease Epidemiology Collaboration (CKD-EPI) equation refit without adjustment for race. BUN/Creatinine Ratio 17.0 LAB CHEMISTRY METHOD 08/28/2024 12:15 PM [facility] Calcium 8.0(L) 8.5 - 10.5 mg/dL LAB CHEMISTRY METHOD 08/28/2024 12:15 PM [facility] Blood Venous blood specimen / Unknown Venipuncture / Unknown 08/28/2024 8:14 AM EST 08/28/2024 11:10 AM EST us Lei Lawton MD LAB BLOOD ORDERABLES Final Result [facility] [address] [place] [address], * (ABNORMAL) Complete blood count (08/28/2024 8:14 AM EST) WBC 6.3 4.8 - 10.8 K/mcL LAB HEMETOLOGY METHOD 08/28/2024 11:41 AM [facility] RBC 3.20(L) 3.80 - 4.80 M/mcL LAB HEMETOLOGY METHOD 08/28/2024 11:41 AM [facility] Hemoglobin 10.3(L) 11.5 - 16.0 g/dL LAB HEMETOLOGY METHOD 08/28/2024 11:41 AM [facility] Hematocrit 32.4(L) 35.0 - 47.0 % LAB HEMETOLOGY METHOD 08/28/2024 11:41 AM [facility] MCV 102.9(H) 79.0 - 98.0 FL LAB HEMETOLOGY METHOD 08/28/2024 11:41 AM [facility] MCH 32.7(H) 27.0 - 32.0 pcg LAB HEMETOLOGY METHOD 08/28/2024 11:41 AM [facility] MCHC 31.8(L) 32.0 - 37.0 g/dL LAB HEMETOLOGY METHOD 08/28/2024 11:41 AM [facility] RDW 14.2 11.0 - 15.0 % LAB HEMETOLOGY METHOD 08/28/2024 11:41 AM [facility] Platelets 315 130 - 400 K/mcL LAB HEMETOLOGY METHOD 08/28/2024 11:41 AM [facility] MPV 8.7 7.0 - 11.0 FL LAB HEMETOLOGY METHOD 08/28/2024 11:41 AM EST [facility] NRBC 0.0 <1.0 % LAB HEMETOLOGY METHOD 08/28/2024 11:41 AM EST [facility] NRBC Absolute 0.00 <0.10 K/mcL LAB HEMETOLOGY METHOD 08/28/2024 11:41 AM EST [facility] Blood Venous blood specimen / Unknown Venipuncture / Unknown 08/28/2024 8:14 AM EST 08/28/2024 11:03 AM EST us Lei Lawton MD LAB BLOOD ORDERABLES Final Result [facility] [address] [place] [address], documented in this encounter Visit Diagnoses Diagnosis Gastro-esophageal reflux disease without esophagitis Unspecified atrial fibrillation (CMS/HCC V24, CMS/HCC V28) Essential (primary) hypertension Unspecified essential hypertension documented in this encounter Care Teams Insole And Heel Stiffener Relationship Specialty Start Date End Date Lei Lawton MD [address] [place] [address] PCP - General Internal Medicine 08/14/24 documented as of this encounter
--- OUTSIDE RECORDS SUMMARY | 2025-07-16 08:55 | XMS_ITS | Clinical Summary ---
Author Organization [facility] Address [address] [place] [address] Care Team Providers Care Lpta Name Role Phone Unavailable Primary Care Provider Unavailabl e Social History Tobacco Use Types Packs/Day Years Used Date Smoking Tobacco: Never Assessed Sex and Gender Information Value Date Recorded Sex Assigned at Not on file Gender Identity Not on file Sexual Orientation Not on file Plan of Treatment Not on file
--- OUTSIDE RECORDS SUMMARY | 2025-07-16 08:55 | XMS_ITS | Patient Health Record ---
Author Organization [facility] Address [address] [place] [address] Care Team Providers Care Manager Fire Name Role Phone Hua HORN, Aleta Primary Care Provider J Luis Mehta Jr Unavailable Allergies Allergen (clinical drug ingredient) Drug/Non Drug [...] Status Risk Notes Problem Colon cancer screening (214003760) Colon cancer screening (Z12.11) Active confirmed Problem Rectal bleeding (15271708) Rectal bleeding (K62.5) Active confirmed Problem Primary biliary cirrhosis (39163641) Primary biliary cirrhosis (K74.3) Active confirmed Problem Abnormal findings diagnostic imaging of liver and biliary tract (306158144) Abnormal x-ray of liver (R93.2) Active confirmed Problem Biliary cirrhosis (1671519) Biliary cirrhosis (K74.5) Active confirmed Plan Of [...] Insured Coverage Start Date Coverage End Date [facility] [address] [place] [address] [id number] RODDY LAKHANI Self - patient is the [...]
--- OUTSIDE RECORDS SUMMARY | 2025-07-16 08:55 | XMS_ITS | Encounter Summary ---
Author Organization [facility] Address [address] [place] [address] Care Team Providers Care Group Captain Name Role Phone Lei Lawton MD Primary Care Provider +1- [phone] Encounter Details Date Type Department Care Team (Late st Contact Info) Description 09/03/2024 Lab Requisition [facility] - Main Lab [address] [facility] [place] [address] Lei Lawton MD [address] [place] [address] Gastro-esophageal reflux disease without esophagitis; Unspecified atrial [...] mmol/L LAB CHEMISTRY METHOD 09/04/2024 2:54 PM [facility] Potassium 3.8 3.5 - 5.5 mmol/L LAB CHEMISTRY METHOD 09/04/2024 2:54 PM [facility] Chloride 103 96 - 110 mmol/L LAB CHEMISTRY METHOD 09/04/2024 2:54 PM [facility] CO2 26 21 - 32 mmol/L LAB CHEMISTRY METHOD 09/04/2024 2:54 PM [facility] Anion Gap 7 3 - 11 LAB CHEMISTRY METHOD 09/04/2024 2:54 PM [facility] Glucose 126(H) 70 - 100 mg/dL LAB CHEMISTRY METHOD 09/04/2024 2:54 PM [facility] BUN 4(L) 5 - 25 mg/dL LAB CHEMISTRY METHOD 09/04/2024 2:54 PM [facility] Creatinine 0.53 0.50 - 1.10 mg/dL LAB CHEMISTRY METHOD 09/04/2024 2:54 PM [facility] eGFR 94 >=60 mL/min/1. 73m2 LAB CHEMISTRY METHOD 09/04/2024 2:54 PM [facility] Comment:Calculation based on the Chronic Kidney Disease Epidemiology Collaboration (CKD-EPI) equation refit without adjustment for race. BUN/Creatinine Ratio 7.5 LAB CHEMISTRY METHOD 09/04/2024 2:54 PM [facility] Calcium 7.8(L) 8.5 - 10.5 mg/dL LAB CHEMISTRY METHOD 09/04/2024 2:54 PM [facility] Blood Venous blood specimen / Unknown Venipuncture / Unknown 09/04/2024 8:57 AM EST 09/04/2024 12:18 PM EST us Lei Lawton MD LAB BLOOD ORDERABLES Final Result [facility] [address] [place] [address], * (ABNORMAL) Complete blood count (09/04/2024 8:57 AM EST) [facility] WBC 5.0 4.8 - 10.8 K/mcL LAB HEMETOLOGY METHOD 09/04/2024 1:50 PM EST [facility] RBC 3.70(L) 3.80 - 4.80 M/mcL LAB HEMETOLOGY METHOD 09/04/2024 1:50 PM EST [facility] Hemoglobin 11.7 11.5 - 16.0 g/dL LAB HEMETOLOGY METHOD 09/04/2024 1:50 PM EST [facility] Hematocrit 37.5 35.0 - 47.0 % LAB HEMETOLOGY METHOD 09/04/2024 1:50 PM EST [facility] MCV 101.6(H) 79.0 - 98.0 FL LAB HEMETOLOGY METHOD 09/04/2024 1:50 PM EST [facility] MCH 31.7 27.0 - 32.0 pcg LAB HEMETOLOGY METHOD 09/04/2024 1:50 PM EST [facility] MCHC 31.2(L) 32.0 - 37.0 g/dL LAB HEMETOLOGY METHOD 09/04/2024 1:50 PM EST [facility] RDW 14.1 11.0 - 15.0 % LAB HEMETOLOGY METHOD 09/04/2024 1:50 PM EST [facility] Platelets 313 130 - 400 K/mcL LAB HEMETOLOGY METHOD 09/04/2024 1:50 PM EST [facility] MPV 8.5 7.0 - 11.0 FL LAB HEMETOLOGY METHOD 09/04/2024 1:50 PM EST [facility] NRBC 0.0 <1.0 % LAB HEMETOLOGY METHOD 09/04/2024 1:50 PM EST [facility] NRBC Absolute 0.00 <0.10 K/mcL LAB HEMETOLOGY METHOD 09/04/2024 1:50 PM EST [facility] Blood Venous blood specimen / Unknown Venipuncture / Unknown 09/04/2024 8:57 AM EST 09/04/2024 12:18 PM EST us Lei Lawton MD LAB BLOOD ORDERABLES Final Result [facility] [address] [place] [address], documented in this encounter Visit Diagnoses Diagnosis Gastro-esophageal reflux disease without esophagitis Unspecified atrial fibrillation (CMS/HCC V24, CMS/HCC V28) Essential (primary) hypertension Unspecified essential hypertension documented in this encounter Care Teams Group Captain Relationship Specialty Start Date End Date Lei Lawton MD [address] [place] [address] PCP - General Internal Medicine 08/14/24 documented as of this encounter
--- OUTSIDE RECORDS SUMMARY | 2025-07-16 08:55 | XMS_ITS | Encounter Summary ---
[facility] Organization [facility] Address [address] [place] [address] Care Team Providers Care Warper Fixer Name Role Phone Lei Lawton MD Primary Care Provider +1- [phone] Encounter Details Date Type Department Care Team (Late st Contact Info) Description 08/14/2024 Lab Requisition [facility] - Main Lab [address] [place] [address] Lei Lawton MD [address] [place] [address] Unspecified atrial fibrillation (CMS/HCC V24, CMS/HCC V28); [...] Final Result [facility] [address] [place] [address], * (ABNORMAL) Complete blood count (08/14/2024 7:25 [...] LAB HEMETOLOGY METHOD 08/14/2024 11:47 AM EST [facility] MCHC 32.2 32.0 - 37.0 g/dL LAB HEMETOLOGY METHOD 08/14/2024 11:47 AM [facility] RDW 13.6 11.0 - 15.0 % LAB HEMETOLOGY METHOD 08/14/2024 11:47 AM EST [facility] Platelets 265 130 - [...] Result [facility] [address] [place] [address], documented in this encounter Visit Diagnoses Diagnosis Unspecified atrial fibrillation (CMS/HCC V24, CMS/HCC V28) Essential (primary) hypertension Unspecified essential hypertension documented in this encounter Care Teams Warper Fixer Relationship Specialty Start Date End Date Lei Lawton MD [address] [place] [address] PCP - General Internal Medicine 08/14/24 documented as of this encounter
--- OUTSIDE RECORDS SUMMARY | 2025-07-16 08:55 | XMS_ITS | Encounter Summary ---
Author Organization Cor[facility] Address [address] [place] [address] Care Team Providers Care Web Marketing Specialist Name Role Phone Lei Lawton MD Primary Care Provider +1- [phone] Encounter Details Date Type Department Care Team (Late st Contact Info) Description 08/18/2024 Lab Requisition [facility] - Main Lab [address] [facility] [place] [address] Lei Lawton MD [address] [place] [address] Gastro-esophageal reflux disease without esophagitis; Unspecified atrial [...] hypertension documented in this encounter Care Teams Web Marketing Specialist Relationship Specialty Start Date End Date Lei Lawton MD [address] [place] [address] PCP - General Internal Medicine 08/14/24 documented as of this encounter
--- OUTSIDE RECORDS SUMMARY | 2025-07-16 08:55 | XMS_ITS | Encounter Summary ---
Author Organization [facility] Address [address] [place] [address] Care Team Providers Care Data Modeling Architect Name Role Phone Lei Lawton MD Primary Care Provider +1- [phone] Encounter Details Date Type Department Care Team (Late st Contact Info) Description 09/09/2024 Lab Requisition [facility] - Main Lab [address] [facility] [place] [address] Lei Lawton MD [address] [place] [address] Gastro-esophageal reflux disease without esophagitis; Unspecified atrial [...] mmol/L LAB CHEMISTRY METHOD 09/11/2024 11:36 AM [facility] Potassium 4.0 3.5 - 5.5 mmol/L LAB CHEMISTRY METHOD 09/11/2024 11:36 AM [facility] Chloride 102 96 - 110 mmol/L LAB CHEMISTRY METHOD 09/11/2024 11:36 AM [facility] CO2 24 21 - 32 mmol/L LAB CHEMISTRY METHOD 09/11/2024 11:36 AM [facility] Anion Gap 6 3 - 11 LAB CHEMISTRY METHOD 09/11/2024 11:36 AM [facility] Glucose 85 70 - 100 mg/dL LAB CHEMISTRY METHOD 09/11/2024 11:36 AM [facility] BUN 8 5 - 25 mg/dL LAB CHEMISTRY METHOD 09/11/2024 11:36 AM [facility] Creatinine 0.47(L) 0.50 - 1.10 mg/dL LAB CHEMISTRY METHOD 09/11/2024 11:36 AM [facility] eGFR 97 >=60 mL/min/1. 73m2 LAB CHEMISTRY METHOD 09/11/2024 11:36 AM [facility] Comment:Calculation based on the Chronic Kidney Disease Epidemiology Collaboration (CKD-EPI) equation refit without adjustment for race. BUN/Creatinine Ratio 17.0 LAB CHEMISTRY METHOD 09/11/2024 11:36 AM [facility] Calcium 8.3(L) 8.5 - 10.5 mg/dL LAB CHEMISTRY METHOD 09/11/2024 11:36 AM [facility] Blood Venous blood specimen / Unknown Venipuncture / Unknown 09/11/2024 7:33 AM EST 09/11/2024 10:46 AM EST us Lei Lawton MD LAB BLOOD ORDERABLES Final Result [facility] [address] [place] [address], * (ABNORMAL) Complete blood count (09/11/2024 7:33 AM EST) [facility] Signature WBC 5.3 4.8 - 10.8 K/mcL LAB HEMETOLOGY METHOD 09/11/2024 11:37 AM [facility] RBC 3.50(L) 3.80 - 4.80 M/mcL LAB HEMETOLOGY METHOD 09/11/2024 11:37 AM [facility] Hemoglobin 10.8(L) 11.5 - 16.0 g/dL LAB HEMETOLOGY METHOD 09/11/2024 11:37 AM [facility] Hematocrit 33.8(L) 35.0 - 47.0 % LAB HEMETOLOGY METHOD 09/11/2024 11:37 AM [facility] MCV 97.1 79.0 - 98.0 FL LAB HEMETOLOGY METHOD 09/11/2024 11:37 AM [facility] MCH 31.0 27.0 - 32.0 pcg LAB HEMETOLOGY METHOD 09/11/2024 11:37 AM [facility] MCHC 32.0 32.0 - 37.0 g/dL LAB HEMETOLOGY METHOD 09/11/2024 11:37 AM [facility] RDW 13.8 11.0 - 15.0 % LAB HEMETOLOGY METHOD 09/11/2024 11:37 AM [facility] Platelets 269 130 - 400 K/mcL LAB HEMETOLOGY METHOD 09/11/2024 11:37 AM [facility] MPV 8.5 7.0 - 11.0 FL LAB HEMETOLOGY METHOD 09/11/2024 11:37 AM [facility] NRBC 0.0 <1.0 % LAB HEMETOLOGY METHOD 09/11/2024 11:37 AM EST [facility] NRBC Absolute 0.00 <0.10 K/mcL LAB HEMETOLOGY METHOD 09/11/2024 11:37 AM EST [facility] Blood Venous blood specimen / Unknown Venipuncture / Unknown 09/11/2024 7:33 AM EST 09/11/2024 10:50 AM EST us Lei Lawton MD LAB BLOOD ORDERABLES Final Result [facility] [address] [place] [address], documented in this encounter Visit Diagnoses Diagnosis Gastro-esophageal reflux disease without esophagitis Unspecified atrial fibrillation (CMS/HCC V24, CMS/HCC V28) Essential (primary) hypertension Unspecified essential hypertension documented in this encounter Care Teams Data Modeling Architect Relationship Specialty Start Date End Date Lei Lawton MD [address] [place] [address] PCP - General Internal Medicine 08/14/24 documented as of this encounter
--- OUTSIDE RECORDS SUMMARY | 2025-07-16 08:55 | XMS_ITS | Encounter Summary ---
Author Organization [facility] Address [address] [place] [address] Care Team Providers Care Poultry Hatchery Supervisor Name Role Phone Lei Lawton MD Primary Care Provider +1- [phone] Encounter Details Date Type Department Care Team (Late st Contact Info) Description 09/16/2024 Lab Requisition [facility] - Main Lab [address] [facility] [place] [address] Lei Lawton MD [address] [place] [address] Gastro-esophageal reflux disease without esophagitis; Unspecified atrial [...] Result [facility] [address] [place] [address], * (ABNORMAL) Complete blood count (09/18/2024 7:36 [...] LAB HEMETOLOGY METHOD 09/18/2024 2:00 PM EST [facility] NRBC Absolute 0.00 <0.10 K/mcL LAB HEMETOLOGY METHOD 09/18/2024 2:00 PM EST [facility] Blood Venous blood specimen / Unknown Venipuncture / Unknown 09/18/2024 7:36 AM EST 09/18/2024 11:59 AM EST Lei Lawton MD LAB BLOOD ORDERABLES Final Result [facility] [address] [place] [address], documented in this encounter Visit Diagnoses Diagnosis Gastro-esophageal reflux disease without esophagitis Unspecified atrial fibrillation (CMS/HCC V24, CMS/HCC V28) Essential (primary) hypertension Unspecified essential hypertension documented in this encounter Care Teams Poultry Hatchery Supervisor Relationship Specialty Start Date End Date Lei Lawton MD [address] [place] [address] PCP - General Internal Medicine 08/14/24 documented as of this encounter
== END 2025-07-16 08:35 | disposition home or self-care (01) ==
LOC: HO.MMNH2L 08:34
PROVIDERS: Visit Provider Physician Assistant Medical
DX: Z13.89 Encounter for screening for other disorder (principal)
CPT/HCPCS: 36415; 80048; 85025

== ENCOUNTER 2025-07-20 06:12 | Outpatient (REF) | payer MEDICARE, SELFPAY ==
--- OUTSIDE RECORDS SUMMARY | 2025-07-20 06:15 | XMS_ITS | Clinical Summary ---
Author Organization [facility] Prior to 01/13/[address] [place] [address] Care Team Providers Care Entry Level Software Engineer Name Role Phone Unavailable Primary Care Provider Unavailabl e Social History Tobacco Use Types Packs/Day Years Used Date Smoking Tobacco: Never Assessed Sex and Gender Information Value Date Recorded Sex Assigned at Not on file Gender Identity Not on file Sexual Orientation Not on file Plan of Treatment Not on file
--- OUTSIDE RECORDS SUMMARY | 2025-07-20 06:15 | XMS_ITS | Encounter Summary ---
Author Organization [facility] Address [address] [place] [address] Care Team Providers Care Clinical Dietetic Technician Name Role Phone Lei Lawton MD Primary Care Provider +1- [phone] Encounter Details Date Type Department Care Team (Late st Contact Info) Description 09/24/2024 Lab Requisition [facility] - Main Lab [address] [facility] [place] [address] Lei Lawton MD [address] [place] [address] Essential (primary) hypertension; Unspecified atrial fibrillation (CMS/HCC [...] mmol/L LAB CHEMISTRY METHOD 09/25/2024 1:12 PM [facility] Potassium 4.3 3.5 - 5.5 mmol/L LAB CHEMISTRY METHOD 09/25/2024 1:12 PM [facility] Chloride 99 96 - 110 mmol/L LAB CHEMISTRY METHOD 09/25/2024 1:12 PM [facility] CO2 25 21 - 32 mmol/L LAB CHEMISTRY METHOD 09/25/2024 1:12 PM [facility] Anion Gap 7 3 - 11 LAB CHEMISTRY METHOD 09/25/2024 1:12 PM [facility] Glucose 118(H) 70 - 100 mg/dL LAB CHEMISTRY METHOD 09/25/2024 1:12 PM [facility] BUN 8 5 - 25 mg/dL LAB CHEMISTRY METHOD 09/25/2024 1:12 PM [facility] Creatinine 0.53 0.50 - 1.10 mg/dL LAB CHEMISTRY METHOD 09/25/2024 1:12 PM [facility] eGFR 94 >=60 mL/min/1. 73m2 LAB CHEMISTRY METHOD 09/25/2024 1:12 PM [facility] Comment:Calculation based on the Chronic Kidney Disease Epidemiology Collaboration (CKD-EPI) equation refit without adjustment for race. BUN/Creatinine Ratio 15.1 LAB CHEMISTRY METHOD 09/25/2024 1:12 PM [facility] Calcium 8.4(L) 8.5 - 10.5 mg/dL LAB CHEMISTRY METHOD 09/25/2024 1:12 PM [facility] Blood Venous blood specimen / Unknown Venipuncture / Unknown 09/25/2024 8:40 AM EST 09/25/2024 11:11 AM EST us Lei Lawton MD LAB BLOOD ORDERABLES Final Result [facility] [address] [place] [address], * (ABNORMAL) Complete blood count (09/25/2024 8:40 AM EST) [facility] Signature WBC 3.8(L) 4.8 - 10.8 K/mcL LAB HEMETOLOGY METHOD 09/25/2024 2:09 PM [facility] RBC 3.50(L) 3.80 - 4.80 M/mcL LAB HEMETOLOGY METHOD 09/25/2024 2:09 PM [facility] Hemoglobin 10.9(L) 11.5 - 16.0 g/dL LAB HEMETOLOGY METHOD 09/25/2024 2:09 PM [facility] Hematocrit 33.6(L) 35.0 - 47.0 % LAB HEMETOLOGY METHOD 09/25/2024 2:09 PM EST [facility] MCV 96.3 79.0 - 98.0 FL LAB HEMETOLOGY METHOD 09/25/2024 2:09 PM [facility] MCH 31.2 27.0 - 32.0 pcg LAB HEMETOLOGY METHOD 09/25/2024 2:09 PM [facility] MCHC 32.4 32.0 - 37.0 g/dL LAB HEMETOLOGY METHOD 09/25/2024 2:09 PM [facility] RDW 13.9 11.0 - 15.0 % LAB HEMETOLOGY METHOD 09/25/2024 2:09 PM [facility] Platelets 202 130 - 400 K/mcL LAB HEMETOLOGY METHOD 09/25/2024 2:09 PM [facility] MPV 9.0 7.0 - 11.0 FL LAB HEMETOLOGY METHOD 09/25/2024 2:09 PM [facility] NRBC 0.0 <1.0 % LAB HEMETOLOGY METHOD 09/25/2024 2:09 PM EST [facility] NRBC Absolute 0.00 <0.10 K/mcL LAB HEMETOLOGY METHOD 09/25/2024 2:09 PM EST [facility] Blood Venous blood specimen / Unknown Venipuncture / Unknown 09/25/2024 8:40 AM EST 09/25/2024 11:11 AM EST us Lei Lawton MD LAB BLOOD ORDERABLES Final Result [facility] [address] [place] [address], documented in this encounter Visit Diagnoses Diagnosis Essential (primary) hypertension Unspecified essential hypertension Unspecified atrial fibrillation (CMS/HCC V24, CMS/HCC V28) Gastro-esophageal reflux disease without esophagitis documented in this encounter Care Teams Clinical Dietetic Technician Relationship Specialty Start Date End Date Lei Lawton MD [address] [place] [address] PCP - General Internal Medicine 08/14/24 documented as of this encounter
--- OUTSIDE RECORDS SUMMARY | 2025-07-20 06:15 | XMS_ITS | Patient Health Record ---
Author Organization [facility] Address [address] [place] [address] Care Team Providers Care Union Organizer Name Role Phone Hua HORN, Aleta Primary [...] Status Risk Notes Problem Colon cancer screening (879037616) Colon cancer screening (Z12.11) Active confirmed Problem Rectal bleeding (75385693) Rectal bleeding (K62.5) Active confirmed Problem Primary biliary cirrhosis (15900741) Primary biliary cirrhosis (K74.3) Active confirmed Problem Abnormal findings diagnostic imaging of liver and biliary tract (004345411) Abnormal x-ray of liver (R93.2) Active confirmed Problem Biliary cirrhosis (7396877) Biliary cirrhosis (K74.5) Active confirmed Plan Of [...] Insured Coverage Start Date Coverage End Date [facility] [address] [place] [address] [id number] RODDY LAKHANI Self - patient is the [...]
--- OUTSIDE RECORDS SUMMARY | 2025-07-20 06:15 | XMS_ITS | Clinical Summary ---
Author Organization 299 [facility] Address [address] [place] [address] Phone Care Team Providers Care Solar Energy Technician Name Role Phone Lei Lawton MD Primary Care Provider +1- [phone] Medical History Medical History Date Comments Cataract [...] mmol/L LAB CHEMISTRY METHOD 09/28/2024 12:51 PM [facility] Potassium 3.7 3.5 - 5.5 mmol/L LAB CHEMISTRY METHOD 09/28/2024 12:51 PM [facility] Chloride 100 96 - 110 mmol/L LAB CHEMISTRY METHOD 09/28/2024 12:51 PM [facility] CO2 27 21 - 32 mmol/L LAB CHEMISTRY METHOD 09/28/2024 12:51 PM [facility] Anion Gap 6 3 - 11 LAB CHEMISTRY METHOD 09/28/2024 12:51 PM [facility] Glucose 80 70 - 100 mg/dL LAB CHEMISTRY METHOD 09/28/2024 12:51 PM EST [facility] BUN 8 5 - 25 mg/dL LAB CHEMISTRY METHOD 09/28/2024 12:51 PM [facility] Creatinine 0.53 0.50 - 1.10 mg/dL LAB CHEMISTRY METHOD 09/28/2024 12:51 PM [facility] eGFR 94 >=60 mL/min/1. 73m2 LAB CHEMISTRY METHOD 09/28/2024 12:51 PM [facility] Comment:Calculation based on the Chronic Kidney Disease Epidemiology Collaboration (CKD-EPI) equation refit without adjustment for race. BUN/Creatinine Ratio 15.1 LAB CHEMISTRY METHOD 09/28/2024 12:51 PM [facility] Calcium 8.3(L) 8.5 - 10.5 mg/dL LAB CHEMISTRY METHOD 09/28/2024 12:51 PM [facility] Blood Venous blood specimen / Unknown Venipuncture / Unknown 09/28/2024 5:33 AM EST 09/28/2024 11:37 AM EST Lei Lawton MD LAB BLOOD ORDERABLES Final Result [facility] [address] [place] [address], from Last 3 Months or Most Recently Relevant to Health Maintenance Insurance [facility] MEDICAID ADVANTAGE [address] [place] [address] Care Teams Solar Energy Technician Relationship Specialty Start Date End Date Lei Lawton MD [address] [place] [address] PCP - General Internal Medicine 08/14/24
--- OUTSIDE RECORDS SUMMARY | 2025-07-20 06:15 | XMS_ITS | Encounter Summary ---
Author Organization [facility] Address [address] [place] [address] Care Team Providers Care Director Phone Name Role Phone Lei Lawton MD Primary Care Provider +1- [phone] Encounter Details Date Type Department Care Team (Late st Contact Info) Description 09/16/2024 Lab Requisition [facility] - Main Lab [address] [facility] [place] [address] Lei Lawton MD [address] [place] [address] Gastro-esophageal reflux disease without esophagitis; Unspecified atrial [...] mmol/L LAB CHEMISTRY METHOD 09/18/2024 4:[address] [facility] Potassium 3.9 3.5 - 5.5 mmol/L LAB CHEMISTRY METHOD 09/18/2024 4:[address] [facility] Chloride 102 96 - 110 mmol/L LAB CHEMISTRY METHOD 09/18/2024 4:[address] [facility] CO2 24 21 - 32 mmol/L LAB CHEMISTRY METHOD 09/18/2024 4:[address] [facility] Anion Gap 7 3 - 11 LAB CHEMISTRY METHOD 09/18/2024 4:[address] [facility] Glucose 90 70 - 100 mg/dL LAB CHEMISTRY METHOD 09/18/2024 4:[address] [facility] BUN 7 5 - 25 mg/dL LAB CHEMISTRY METHOD 09/18/2024 4:[address] [facility] Creatinine 0.43(L) 0.50 - 1.10 mg/dL LAB CHEMISTRY METHOD 09/18/2024 4:[address] [facility] eGFR 99 >=60 mL/min/1. 73m2 LAB CHEMISTRY METHOD 09/18/2024 4:[address] [facility] Comment:Calculation based on the Chronic Kidney Disease Epidemiology Collaboration (CKD-EPI) equation refit without adjustment for race. BUN/Creatinine Ratio 16.3 LAB CHEMISTRY METHOD 09/18/2024 4:[address] [facility] Calcium 8.3(L) 8.5 - 10.5 mg/dL LAB CHEMISTRY METHOD 09/18/2024 4:[address] [facility] Blood Venous blood specimen / Unknown Venipuncture / Unknown 09/18/2024 7:36 AM EST 09/18/2024 11:59 AM EST us Lei Lawton MD LAB BLOOD ORDERABLES Final Result [facility] [address] [place] [address], * (ABNORMAL) Complete blood count (09/18/2024 7:36 AM EST) WBC 4.1(L) 4.8 - 10.8 K/mcL LAB HEMETOLOGY METHOD 09/18/2024 2:[address] [facility] RBC 3.80 3.80 - 4.80 M/mcL LAB HEMETOLOGY METHOD 09/18/2024 2:[address] [facility] Hemoglobin 11.7 11.5 - 16.0 g/dL LAB HEMETOLOGY METHOD 09/18/2024 2:[address] [facility] Hematocrit 35.7 35.0 - 47.0 % LAB HEMETOLOGY METHOD 09/18/2024 2:[address] [facility] MCV 94.7 79.0 - 98.0 FL LAB HEMETOLOGY METHOD 09/18/2024 2:[address] [facility] MCH 31.0 27.0 - 32.0 pcg LAB HEMETOLOGY METHOD 09/18/2024 2:[address] [facility] MCHC 32.8 32.0 - 37.0 g/dL LAB HEMETOLOGY METHOD 09/18/2024 2:[address] [facility] RDW 13.8 11.0 - 15.0 % LAB HEMETOLOGY METHOD 09/18/2024 2:[address] [facility] Platelets 241 130 - 400 K/mcL LAB HEMETOLOGY METHOD 09/18/2024 2:[address] [facility] MPV 8.7 7.0 - 11.0 FL LAB HEMETOLOGY METHOD 09/18/2024 2:[address] [facility] NRBC 0.0 <1.0 % LAB HEMETOLOGY METHOD 09/18/2024 2:00 PM EST [facility] NRBC Absolute 0.00 <0.10 K/mcL LAB HEMETOLOGY METHOD 09/18/2024 2:00 PM EST [facility] Blood Venous blood specimen / Unknown Venipuncture / Unknown 09/18/2024 7:36 AM EST 09/18/2024 11:59 AM EST Lei Lawton MD LAB BLOOD ORDERABLES Final Result [facility] [address] [place] [address], documented in this encounter Visit Diagnoses Diagnosis Gastro-esophageal reflux disease without esophagitis Unspecified atrial fibrillation (CMS/HCC V24, CMS/HCC V28) Essential (primary) hypertension Unspecified essential hypertension documented in this encounter Care Teams Director Phone Relationship Specialty Start Date End Date Lei Lawton MD [address] [place] [address] PCP - General Internal Medicine 08/14/24 documented as of this encounter
--- OUTSIDE RECORDS SUMMARY | 2025-07-20 06:15 | XMS_ITS | Encounter Summary ---
Author Organization [facility] Address [address] [place] [address] Care Team Providers Care Environmental Permitting Specialist Name Role Phone Lei Lawton MD Primary Care Provider +1- [phone] Encounter Details Date Type Department Care Team (Late st Contact Info) Description 09/16/2024 Lab Requisition [facility] - Main Lab [address] [facility] [place] [address] Lei Lawton MD [address] [place] [address] Gastro-esophageal reflux disease without esophagitis; Unspecified atrial [...] hypertension documented in this encounter Care Teams Environmental Permitting Specialist Relationship Specialty Start Date End Date Lei Lawton MD [address] [place] [address] PCP - General Internal Medicine 08/14/24 documented as of this encounter
--- OUTSIDE RECORDS SUMMARY | 2025-07-20 06:16 | XMS_ITS | Encounter Summary ---
Author Organization [facility] Address [address] [place] [address] Care Team Providers Care Head Track Coach Name Role Phone Lei Lawton MD Primary Care Provider +1- [phone] Encounter Details Date Type Department Care Team (Late st Contact Info) Description 08/14/2024 Lab Requisition [facility] - Main Lab [address] [place] [address] Lei Lawton MD [address] [place] [address] Unspecified atrial fibrillation (CMS/HCC V24, CMS/HCC V28); [...] Lawton MD LAB BLOOD ORDERABLES Final Result [facility] [address] [place] [address], * (ABNORMAL) Complete blood count (08/14/2024 7:25 [...] LAB HEMETOLOGY METHOD 08/14/2024 11:47 AM EST [facility] MCHC 32.2 32.0 - 37.0 g/dL LAB HEMETOLOGY METHOD 08/14/2024 11:[address] [facility] RDW 13.6 11.0 - 15.0 % LAB HEMETOLOGY METHOD 08/14/2024 11:47 AM EST [facility] Platelets 265 130 - 400 K/mcL [...] Lawton MD LAB BLOOD ORDERABLES Final Result [facility] [address] [place] [address], documented in this encounter Visit Diagnoses Diagnosis Unspecified atrial fibrillation (CMS/HCC V24, CMS/HCC V28) Essential (primary) hypertension Unspecified essential hypertension documented in this encounter Care Teams Head Track Coach Relationship Specialty Start Date End Date Lei Lawton MD [address] [place] [address] PCP - General Internal Medicine 08/14/24 documented as of this encounter
--- OUTSIDE RECORDS SUMMARY | 2025-07-20 06:16 | XMS_ITS | Encounter Summary ---
Author Organization [facility] Address [address] [place] [address] Care Team Providers Care Fruit Peeler Name Role Phone Lei Lawton MD Primary Care Provider +1- [phone] Encounter Details Date Type Department Care Team (Late st Contact Info) Description 08/26/2024 Lab Requisition [facility] - Main Lab [address] [facility] [place] [address] Lei Lawton MD [address] [place] [address] Gastro-esophageal reflux disease without esophagitis; Unspecified atrial [...] mmol/L LAB CHEMISTRY METHOD 08/28/2024 12:15 PM [facility] Potassium 4.3 3.5 - 5.5 mmol/L LAB CHEMISTRY METHOD 08/28/2024 12:15 PM [facility] Chloride 100 96 - 110 mmol/L LAB CHEMISTRY METHOD 08/28/2024 12:15 PM [facility] CO2 25 21 - 32 mmol/L LAB CHEMISTRY METHOD 08/28/2024 12:15 PM [facility] Anion Gap 7 3 - 11 LAB CHEMISTRY METHOD 08/28/2024 12:15 PM [facility] Glucose 108(H) 70 - 100 mg/dL LAB CHEMISTRY METHOD 08/28/2024 12:15 PM [facility] BUN 8 5 - 25 mg/dL LAB CHEMISTRY METHOD 08/28/2024 12:15 PM [facility] Creatinine 0.47(L) 0.50 - 1.10 mg/dL LAB CHEMISTRY METHOD 08/28/2024 12:15 PM [facility] eGFR 97 >=60 mL/min/1. 73m2 LAB CHEMISTRY METHOD 08/28/2024 12:15 PM [facility] Comment:Calculation based on the Chronic Kidney Disease Epidemiology Collaboration (CKD-EPI) equation refit without adjustment for race. BUN/Creatinine Ratio 17.0 LAB CHEMISTRY METHOD 08/28/2024 12:15 PM [facility] Calcium 8.0(L) 8.5 - 10.5 mg/dL LAB CHEMISTRY METHOD 08/28/2024 12:15 PM [facility] Blood Venous blood specimen / Unknown Venipuncture / Unknown 08/28/2024 8:14 AM EST 08/28/2024 11:10 AM EST us Lei Lawton MD LAB BLOOD ORDERABLES Final Result [facility] [address] [place] [address], * (ABNORMAL) Complete blood count (08/28/2024 8:14 AM EST) WBC 6.3 4.8 - 10.8 K/mcL LAB HEMETOLOGY METHOD 08/28/2024 11:41 AM [facility] RBC 3.20(L) 3.80 - 4.80 M/mcL LAB HEMETOLOGY METHOD 08/28/2024 11:41 AM [facility] Hemoglobin 10.3(L) 11.5 - 16.0 g/dL LAB HEMETOLOGY METHOD 08/28/2024 11:41 AM [facility] Hematocrit 32.4(L) 35.0 - 47.0 % LAB HEMETOLOGY METHOD 08/28/2024 11:41 AM [facility] MCV 102.9(H) 79.0 - 98.0 FL LAB HEMETOLOGY METHOD 08/28/2024 11:41 AM [facility] MCH 32.7(H) 27.0 - 32.0 pcg LAB HEMETOLOGY METHOD 08/28/2024 11:41 AM [facility] MCHC 31.8(L) 32.0 - 37.0 g/dL LAB HEMETOLOGY METHOD 08/28/2024 11:41 AM [facility] RDW 14.2 11.0 - 15.0 % LAB HEMETOLOGY METHOD 08/28/2024 11:41 AM [facility] Platelets 315 130 - 400 K/mcL LAB HEMETOLOGY METHOD 08/28/2024 11:41 AM [facility] MPV 8.7 7.0 - 11.0 FL LAB HEMETOLOGY METHOD 08/28/2024 11:41 AM EST [facility] NRBC 0.0 <1.0 % LAB HEMETOLOGY METHOD 08/28/2024 11:41 AM EST [facility] NRBC Absolute 0.00 <0.10 K/mcL LAB HEMETOLOGY METHOD 08/28/2024 11:41 AM EST [facility] Blood Venous blood specimen / Unknown Venipuncture / Unknown 08/28/2024 8:14 AM EST 08/28/2024 11:03 AM EST us Lei Lawton MD LAB BLOOD ORDERABLES Final Result [facility] [address] [place] [address], documented in this encounter Visit Diagnoses Diagnosis Gastro-esophageal reflux disease without esophagitis Unspecified atrial fibrillation (CMS/HCC V24, CMS/HCC V28) Essential (primary) hypertension Unspecified essential hypertension documented in this encounter Care Teams Fruit Peeler Relationship Specialty Start Date End Date Lei Lawton MD [address] [place] [address] PCP - General Internal Medicine 08/14/24 documented as of this encounter
--- OUTSIDE RECORDS SUMMARY | 2025-07-20 06:16 | XMS_ITS | Encounter Summary ---
Author Organization [facility] Address [address] [place] [address] Care Team Providers Care Slitter Creaser Slotter Helper Name Role Phone Lei Lawton MD Primary Care Provider +1- [phone] Encounter Details Date Type Department Care Team (Late st Contact Info) Description 10/01/2024 Lab Requisition [facility] - Main Lab [address] [facility] [place] [address] Lei Lawton MD [address] [place] [address] Essential (primary) hypertension; Unspecified atrial fibrillation (CMS/HCC [...] esophagitis documented in this encounter Care Teams Slitter Creaser Slotter Helper Relationship Specialty Start Date End Date Lei Lawton MD [address] [place] [address] PCP - General Internal Medicine 08/14/24 documented as of this encounter
--- OUTSIDE RECORDS SUMMARY | 2025-07-20 06:16 | XMS_ITS | Encounter Summary ---
Author Organization [facility] [place] [address] Care Team Providers Care Videotape Operator Name Role Phone Lei Lawton MD Primary Care Provider +1- [phone] Encounter Details Date Type Department Care Team (Late st Contact Info) Description 09/28/2024 Lab Requisition [facility] - Main Lab [address] [facility] [place] [address] Lei Lawton MD [address] [place] [address] Weakness; Shortness of breath Social History Tobacco [...] LAB CHEMISTRY METHOD 09/28/2024 12:51 PM EST [facility] Blood Venous blood specimen / Unknown Venipuncture / Unknown 09/28/2024 5:33 AM EST 09/28/2024 11:37 AM EST Lei Lawton MD LAB BLOOD ORDERABLES Final Result Performing Organization Address City/[facility]/ZIP Co de Phone Number [facility] [address] [place] [address], [place] [phone] * (ABNORMAL) B-type natriuretic peptide (09/28/2024 5:33 AM EST) BNP 254(H) <=100 pcg/mL LAB CHEMISTRY METHOD 09/28/2024 12:52 PM [facility] Blood Venous blood specimen / Unknown Venipuncture / Unknown 09/28/2024 5:33 AM EST 09/28/2024 11:37 AM EST Lei Lawton MD LAB BLOOD ORDERABLES Final Result Performing Organization Address City/[facility]/ZIP Co de Phone Number [facility] [address] [place] [address], [place] [phone] * (ABNORMAL) Basic metabolic panel (09/28/2024 5:33 AM EST) Sodium 133 133 - 145 mmol/L LAB CHEMISTRY METHOD 09/28/2024 12:51 PM [facility] Potassium 3.7 3.5 - 5.5 mmol/L LAB CHEMISTRY METHOD 09/28/2024 12:51 PM [facility] Chloride 100 96 - 110 mmol/L LAB CHEMISTRY METHOD 09/28/2024 12:51 PM [facility] CO2 27 21 - 32 mmol/L LAB CHEMISTRY METHOD 09/28/2024 12:51 PM [facility] Anion Gap 6 3 - 11 LAB CHEMISTRY METHOD 09/28/2024 12:51 PM [facility] Glucose 80 70 - 100 mg/dL LAB CHEMISTRY METHOD 09/28/2024 12:51 PM [facility] BUN 8 5 - 25 mg/dL LAB CHEMISTRY METHOD 09/28/2024 12:51 PM [facility] Creatinine 0.53 0.50 - 1.10 mg/dL LAB CHEMISTRY METHOD 09/28/2024 12:51 PM [facility] eGFR 94 >=60 mL/min/1. 73m2 LAB CHEMISTRY METHOD 09/28/2024 12:51 PM [facility] Comment:Calculation based on the Chronic Kidney Disease Epidemiology Collaboration (CKD-EPI) equation refit without adjustment for race. BUN/Creatinine Ratio 15.1 LAB CHEMISTRY METHOD 09/28/2024 12:51 PM [facility] Calcium 8.3(L) 8.5 - 10.5 mg/dL LAB CHEMISTRY METHOD 09/28/2024 12:51 PM [facility] Blood Venous blood specimen / Unknown Venipuncture / Unknown 09/28/2024 5:33 AM EST 09/28/2024 11:37 AM EST us Lei Lawton MD LAB BLOOD ORDERABLES Final Result [facility] [address] [place] [address], documented in this encounter Visit Diagnoses Diagnosis Weakness Other malaise and fatigue Shortness of breath documented in this encounter Care Teams Videotape Operator Relationship Specialty Start Date End Date Lei Lawton MD [address] [place] [address] PCP - General Internal Medicine 08/14/24 documented as of this encounter
--- OUTSIDE RECORDS SUMMARY | 2025-07-20 06:16 | XMS_ITS | Encounter Summary ---
Author Organization [facility] Address [address] [place] [address] Care Team Providers Care Medical Imaging Tech Name Role Phone Lei Lawton MD Primary Care Provider +1- [phone] Encounter Details Date Type Department Care Team (Late st Contact Info) Description 09/09/2024 Lab Requisition [facility] - Main Lab [address] [facility] [place] [address] Lei Lawton MD [address] [place] [address] Gastro-esophageal reflux disease without esophagitis; Unspecified atrial [...] mmol/L LAB CHEMISTRY METHOD 09/11/2024 11:36 AM [facility] Potassium 4.0 3.5 - 5.5 mmol/L LAB CHEMISTRY METHOD 09/11/2024 11:36 AM [facility] Chloride 102 96 - 110 mmol/L LAB CHEMISTRY METHOD 09/11/2024 11:36 AM [facility] CO2 24 21 - 32 mmol/L LAB CHEMISTRY METHOD 09/11/2024 11:36 AM [facility] Anion Gap 6 3 - 11 LAB CHEMISTRY METHOD 09/11/2024 11:36 AM [facility] Glucose 85 70 - 100 mg/dL LAB CHEMISTRY METHOD 09/11/2024 11:36 AM [facility] BUN 8 5 - 25 mg/dL LAB CHEMISTRY METHOD 09/11/2024 11:36 AM [facility] Creatinine 0.47(L) 0.50 - 1.10 mg/dL LAB CHEMISTRY METHOD 09/11/2024 11:36 AM [facility] eGFR 97 >=60 mL/min/1. 73m2 LAB CHEMISTRY METHOD 09/11/2024 11:36 AM [facility] Comment:Calculation based on the Chronic Kidney Disease Epidemiology Collaboration (CKD-EPI) equation refit without adjustment for race. BUN/Creatinine Ratio 17.0 LAB CHEMISTRY METHOD 09/11/2024 11:36 AM [facility] Calcium 8.3(L) 8.5 - 10.5 mg/dL LAB CHEMISTRY METHOD 09/11/2024 11:36 AM [facility] Blood Venous blood specimen / Unknown Venipuncture / Unknown 09/11/2024 7:33 AM EST 09/11/2024 10:46 AM EST us Lei Lawton MD LAB BLOOD ORDERABLES Final Result [facility] [address] [place] [address], * (ABNORMAL) Complete blood count (09/11/2024 7:33 AM EST) [facility] Signature WBC 5.3 4.8 - 10.8 K/mcL LAB HEMETOLOGY METHOD 09/11/2024 11:37 AM [facility] RBC 3.50(L) 3.80 - 4.80 M/mcL LAB HEMETOLOGY METHOD 09/11/2024 11:37 AM [facility] Hemoglobin 10.8(L) 11.5 - 16.0 g/dL LAB HEMETOLOGY METHOD 09/11/2024 11:37 AM [facility] Hematocrit 33.8(L) 35.0 - 47.0 % LAB HEMETOLOGY METHOD 09/11/2024 11:37 AM [facility] MCV 97.1 79.0 - 98.0 FL LAB HEMETOLOGY METHOD 09/11/2024 11:37 AM [facility] MCH 31.0 27.0 - 32.0 pcg LAB HEMETOLOGY METHOD 09/11/2024 11:37 AM [facility] MCHC 32.0 32.0 - 37.0 g/dL LAB HEMETOLOGY METHOD 09/11/2024 11:37 AM [facility] RDW 13.8 11.0 - 15.0 % LAB HEMETOLOGY METHOD 09/11/2024 11:37 AM [facility] Platelets 269 130 - 400 K/mcL LAB HEMETOLOGY METHOD 09/11/2024 11:37 AM [facility] MPV 8.5 7.0 - 11.0 FL LAB HEMETOLOGY METHOD 09/11/2024 11:37 AM [facility] NRBC 0.0 <1.0 % LAB HEMETOLOGY METHOD 09/11/2024 11:37 AM EST [facility] NRBC Absolute 0.00 <0.10 K/mcL LAB HEMETOLOGY METHOD 09/11/2024 11:37 AM EST [facility] Blood Venous blood specimen / Unknown Venipuncture / Unknown 09/11/2024 7:33 AM EST 09/11/2024 10:50 AM EST us Lei Lawton MD LAB BLOOD ORDERABLES Final Result [facility] [address] [place] [address], documented in this encounter Visit Diagnoses Diagnosis Gastro-esophageal reflux disease without esophagitis Unspecified atrial fibrillation (CMS/HCC V24, CMS/HCC V28) Essential (primary) hypertension Unspecified essential hypertension documented in this encounter Care Teams Medical Imaging Tech Relationship Specialty Start Date End Date Lei Lawton MD [address] [place] [address] PCP - General Internal Medicine 08/14/24 documented as of this encounter
--- OUTSIDE RECORDS SUMMARY | 2025-07-20 06:16 | XMS_ITS | Encounter Summary ---
Author Organization [facility] Address [address] [place] [address] Care Team Providers Care Supervisory Geographer Name Role Phone Lei Lawton MD Primary Care Provider +1- [phone] Encounter Details Date Type Department Care Team (Late st Contact Info) Description 08/18/2024 Lab Requisition [facility] - Main Lab [address] [facility] [place] [address] Lei Lawton MD [address] [place] [address] Gastro-esophageal reflux disease without esophagitis; Unspecified atrial [...] hypertension documented in this encounter Care Teams Supervisory Geographer Relationship Specialty Start Date End Date Lei Lawton MD [address] [place] [address] PCP - General Internal Medicine 08/14/24 documented as of this encounter
--- OUTSIDE RECORDS SUMMARY | 2025-07-20 06:16 | XMS_ITS | Encounter Summary ---
Author Organization [facility] Address [address] [place] [address] Care Team Providers Care Business Banking Officer Name Role Phone Lei Lawton MD Primary Care Provider +1- [phone] Encounter Details Date Type Department Care Team (Late st Contact Info) Description 09/03/2024 Lab Requisition [facility] - Main Lab [address] [facility] [place] [address] Lei Lawton MD [address] [place] [address] Gastro-esophageal reflux disease without esophagitis; Unspecified atrial [...] mmol/L LAB CHEMISTRY METHOD 09/04/2024 2:[address] [facility] Potassium 3.8 3.5 - 5.5 mmol/L LAB CHEMISTRY METHOD 09/04/2024 2:[address] [facility] Chloride 103 96 - 110 mmol/L LAB CHEMISTRY METHOD 09/04/2024 2:[address] [facility] CO2 26 21 - 32 mmol/L LAB CHEMISTRY METHOD 09/04/2024 2:[address] [facility] Anion Gap 7 3 - 11 LAB CHEMISTRY METHOD 09/04/2024 2:[address] [facility] Glucose 126(H) 70 - 100 mg/dL LAB CHEMISTRY METHOD 09/04/2024 2:[address] [facility] BUN 4(L) 5 - 25 mg/dL LAB CHEMISTRY METHOD 09/04/2024 2:[address] [facility] Creatinine 0.53 0.50 - 1.10 mg/dL LAB CHEMISTRY METHOD 09/04/2024 2:[address] [facility] eGFR 94 >=60 mL/min/1. 73m2 LAB CHEMISTRY METHOD 09/04/2024 2:[address] [facility] Comment:Calculation based on the Chronic Kidney Disease Epidemiology Collaboration (CKD-EPI) equation refit without adjustment for race. BUN/Creatinine Ratio 7.5 LAB CHEMISTRY METHOD 09/04/2024 2:[address] [facility] Calcium 7.8(L) 8.5 - 10.5 mg/dL LAB CHEMISTRY METHOD 09/04/2024 2:[address] [facility] Blood Venous blood specimen / Unknown Venipuncture / Unknown 09/04/2024 8:57 AM EST 09/04/2024 12:18 PM EST us Lei Lawton MD LAB BLOOD ORDERABLES Final Result [facility] [address] [place] [address], * (ABNORMAL) Complete blood count (09/04/2024 8:57 AM EST) [facility] WBC 5.0 4.8 - 10.8 K/mcL LAB HEMETOLOGY METHOD 09/04/2024 1:[address] [facility] RBC 3.70(L) 3.80 - 4.80 M/mcL LAB HEMETOLOGY METHOD 09/04/2024 1:[address] [facility] Hemoglobin 11.7 11.5 - 16.0 g/dL LAB HEMETOLOGY METHOD 09/04/2024 1:[address] [facility] Hematocrit 37.5 35.0 - 47.0 % LAB HEMETOLOGY METHOD 09/04/2024 1:[address] [facility] MCV 101.6(H) 79.0 - 98.0 FL LAB HEMETOLOGY METHOD 09/04/2024 1:[address] [facility] MCH 31.7 27.0 - 32.0 pcg LAB HEMETOLOGY METHOD 09/04/2024 1:[address] [facility] MCHC 31.2(L) 32.0 - 37.0 g/dL LAB HEMETOLOGY METHOD 09/04/2024 1:[address] [facility] RDW 14.1 11.0 - 15.0 % LAB HEMETOLOGY METHOD 09/04/2024 1:[address] [facility] Platelets 313 130 - 400 K/mcL LAB HEMETOLOGY METHOD 09/04/2024 1:[address] [facility] MPV 8.5 7.0 - 11.0 FL LAB HEMETOLOGY METHOD 09/04/2024 1:[address] [facility] NRBC 0.0 <1.0 % LAB HEMETOLOGY METHOD 09/04/2024 1:[address] [facility] NRBC Absolute 0.00 <0.10 K/mcL LAB HEMETOLOGY METHOD 09/04/2024 1:[address] [facility] Blood Venous blood specimen / Unknown Venipuncture / Unknown 09/04/2024 8:57 AM EST 09/04/2024 12:18 PM EST us Lei Lawton MD LAB BLOOD ORDERABLES Final Result [facility] [address] [place] [address], documented in this encounter Visit Diagnoses Diagnosis Gastro-esophageal reflux disease without esophagitis Unspecified atrial fibrillation (CMS/HCC V24, CMS/HCC V28) Essential (primary) hypertension Unspecified essential hypertension documented in this encounter Care Teams Business Banking Officer Relationship Specialty Start Date End Date Lei Lawton MD [address] [place] [address] PCP - General Internal Medicine 08/14/24 documented as of this encounter
[2025-07-20 08:10] LABS: Anion Gap 13 (12-20); Blood Urea Nitrogen 25 mg/dL (9-16); Calcium 8.3 mg/dL (8.4-10.2); Carbon Dioxide 21 mmol/L (22-29); Chloride 110 mmol/L (96-108); Estimated Glomerular Filt Rate 31; Potassium 2.8 mmol/L (3.3-5.1); Sodium 141 mmol/L (135-145)
== END 2025-07-20 06:13 | disposition home or self-care (01) ==
LOC: HO.MMNH2L 06:12
PROVIDERS: Visit Provider Physician Assistant Medical
DX: I48.0 Paroxysmal atrial fibrillation (principal); I50.33 Acute on chronic diastolic (congestive) heart failure
CPT/HCPCS: 36415; 80048; 83880

== ENCOUNTER 2025-07-23 09:07 | Outpatient (REF) | payer MEDICARE, SELFPAY ==
[2025-07-23 07:23] LABS: MANUAL DIFF FLAG NO
[2025-07-23 07:39] LABS: Hematocrit 29.4 % (37.0-47.0); Hemoglobin 8.8 g/dl (12.0-16.0); Imm Gran Abs Auto 0.01 X10*3/uL (0.00-0.03); Imm Gran Pct Auto 0.2 % (0.0-0.4); Lymphocytes Absolute Auto 1.2 X10*3/uL (1.2-4.9); Mean Corpuscular HGB Conc 29.9 g/dl (31.0-35.0); Mean Corpuscular Hemoglobin 27.9 pg (27.0-33.0); Mean Corpuscular Volume 93.3 fL (80.0-98.0); NRBC Abs Auto 0.000 X10*3/uL (0.0-0.012); NRBC Pct Auto 0.0 /100WBC (0.0-0.2); Platelet Count 158 X10*3/uL (160-400); Red Blood Count 3.15 X10*6/uL (4.20-5.50); White Blood Count 5.8 X10*3/uL (4.8-10.8)
[2025-07-23 07:50] LABS: Anion Gap 11 (12-20); Blood Urea Nitrogen 20 mg/dL (9-16); Calcium 8.5 mg/dL (8.4-10.2); Carbon Dioxide 23 mmol/L (22-29); Chloride 112 mmol/L (96-108); Estimated Glomerular Filt Rate 39; Potassium 4.4 mmol/L (3.3-5.1); Sodium 142 mmol/L (135-145)
== END 2025-07-23 09:08 | disposition home or self-care (01) ==
LOC: HO.MMNH2L 09:07
PROVIDERS: Visit Provider Physician Assistant Medical
DX: Z13.89 Encounter for screening for other disorder (principal)
CPT/HCPCS: 36415; 80048; 85025

== ENCOUNTER 2025-07-26 11:40 | Outpatient (REF) | payer MEDICARE, SELFPAY ==
[2025-07-26 12:21] LABS: MANUAL DIFF FLAG NO
[2025-07-26 12:33] LABS: Hematocrit 32.8 % (37.0-47.0); Hemoglobin 10.0 g/dl (12.0-16.0); Imm Gran Abs Auto 0.02 X10*3/uL (0.00-0.03); Imm Gran Pct Auto 0.4 % (0.0-0.4); Lymphocytes Absolute Auto 1.2 X10*3/uL (1.2-4.9); Mean Corpuscular HGB Conc 30.5 g/dl (31.0-35.0); Mean Corpuscular Hemoglobin 28.5 pg (27.0-33.0); Mean Corpuscular Volume 93.4 fL (80.0-98.0); NRBC Abs Auto 0.000 X10*3/uL (0.0-0.012); NRBC Pct Auto 0.0 /100WBC (0.0-0.2); Platelet Count 195 X10*3/uL (160-400); Red Blood Count 3.51 X10*6/uL (4.20-5.50); White Blood Count 5.4 X10*3/uL (4.8-10.8)
[2025-07-26 12:48] LABS: Anion Gap 13 (12-20); Blood Urea Nitrogen 22 mg/dL (9-16); Calcium 8.4 mg/dL (8.4-10.2); Carbon Dioxide 23 mmol/L (22-29); Chloride 109 mmol/L (96-108); Estimated Glomerular Filt Rate 30; Potassium 3.6 mmol/L (3.3-5.1); Sodium 141 mmol/L (135-145)
== END 2025-07-26 11:41 ==
LOC: HO.MMNH2L 11:40
PROVIDERS: Visit Provider Physician Assistant Medical
DX: E46 Unspecified protein-calorie malnutrition (principal); D64.9 Anemia, unspecified
CPT/HCPCS: 36415; 80048; 85025

== ENCOUNTER 2025-07-30 09:34 | Outpatient (REF) | payer MEDICARE, SELFPAY ==
[2025-07-30 07:51] LABS: MANUAL DIFF FLAG NO
[2025-07-30 08:01] LABS: Hematocrit 29.4 % (37.0-47.0); Hemoglobin 9.1 g/dl (12.0-16.0); Imm Gran Abs Auto 0.01 X10*3/uL (0.00-0.03); Imm Gran Pct Auto 0.2 % (0.0-0.4); Lymphocytes Absolute Auto 1.1 X10*3/uL (1.2-4.9); Mean Corpuscular HGB Conc 31.0 g/dl (31.0-35.0); Mean Corpuscular Hemoglobin 28.7 pg (27.0-33.0); Mean Corpuscular Volume 92.7 fL (80.0-98.0); NRBC Abs Auto 0.000 X10*3/uL (0.0-0.012); NRBC Pct Auto 0.0 /100WBC (0.0-0.2); Platelet Count 163 X10*3/uL (160-400); Red Blood Count 3.17 X10*6/uL (4.20-5.50); White Blood Count 4.8 X10*3/uL (4.8-10.8)
[2025-07-30 08:41] LABS: Anion Gap 16 (12-20); Blood Urea Nitrogen 29 mg/dL (9-16); Calcium 8.2 mg/dL (8.4-10.2); Carbon Dioxide 21 mmol/L (22-29); Chloride 108 mmol/L (96-108); Estimated Glomerular Filt Rate 27; Potassium 3.1 mmol/L (3.3-5.1); Sodium 142 mmol/L (135-145)
== END 2025-07-30 09:35 | disposition home or self-care (01) ==
LOC: HO.MMNH2L 09:34
PROVIDERS: Visit Provider Physician Assistant Medical
DX: Z13.89 Encounter for screening for other disorder (principal)
CPT/HCPCS: 36415; 80048; 85025

== ENCOUNTER 2025-08-01 07:07 | Outpatient (REF) | payer MEDICARE, SELFPAY ==
--- OUTSIDE RECORDS SUMMARY | 2025-07-29 23:59 | XMS_ITS | Continuity of Care Document ---
Author Organization [facility] Address [address] [place] [address]- Care Team Providers Care Keyboard Action Assembler Name Role Phone Lynette Martinez Primary Care P jose g Encounter [facility] Date(s): 06/29/25 - 07/29/[address] [address]- Encounter Type: Triage Allergies, Adverse Reactions, Alerts [...] n tetanus-diphtheria toxoids (Td) 2 06/15/24 Given [id number] 12y+ bivalent booster vax 06/12/22 Recorded SARS-CoV-2 mRNA (emtauaz-uepr-xruwo) vax 11/25/21 Recorded SARS-CoV-2 (COVID-19) mRNA BNT-162b2 vac 05/12/21 Recorded SARS-CoV-2 (COVID-19) mRNA BNT-162b2 vac 10/19/20 Recorded SARS-CoV-2 (COVID-19) mRNA BNT-162b2 vac 09/28/20 Recorded pneumococcal 23-valent vaccine 3 08/04/12 Given 1Result Comment: [facility]# [id number] 2Result Comment: [facility]# [id number] 3Admin Note: administered by Aleta Medications acetaminophen 325 mg oral tablet 975 mg, By Mouth, Every 8 hours, Refills 0, Maintenance, 08/23/24 8:46:00 AM EST, Partial fill upon patient request if the prescription is for a schedule II opioid drug. Start Date: 08/23/24 Status: Ordered Medication Dispense Status: Completed Total Allowed Fills: 1 Fills Dispensed: 0 Bisacodyl = 10 mg, Daily, 0 Refills, Maintenance, 07/19/25 3:57:00 PM EST, Partial fill upon patient request if the prescription is for a schedule II opioid drug. Start Date: 07/19/25 Status: Ordered Medication Dispense Status: Completed Total Allowed Fills: 1 Fills Dispensed: 0 dapagliflozin 10 mg oral tablet 1 tablet = 10 mg, By Mouth, Daily, # 90 tablet, 3 Refills, Maintenance, 05/09/25 2:08:00 PM EDT, Tablet, [id number], Partial fill upon patient request [...] 9:16:00 AM EST, Route to Pharmacy Electronically, [facility]/pharmacy #[id number], Partial fill upon patient request if the prescription is for a schedule II opioid drug., 168, cm, 06/29/25 1:46:00 EST, Height, 67.4, kg, 06/25/25 13:22:00 EST, Dry Weight Start Date: 07/04/25 Status: Ordered Medication Dispense Status: Completed Quantity: 90.0 Unit: tablet Total Allowed Fills: 2 Fills Dispensed: 0 Milk of Magnesia = 400 mg, By Mouth, 0 Refills, Maintenance, 07/19/25 3:57:00 PM EST, Partial fill upon patient request if the prescription is for a schedule II opioid drug. Start Date: 07/19/25 Status: Ordered Medication Dispense Status: Completed Total Allowed Fills: 1 Fills Dispensed: 0 mirtazapine 15 mg oral tablet 1 tablet = 15 mg, By Mouth, Daily at bedtime, # 90 tablet, 0 Refills, Maintenance, 06/04/25 1:10:00PM EDT, Tablet, [facility]/pharmacy #[id number], Partial fill upon patient request [...] Total Allowed Fills: 1 Fills Dispensed: 0 Protonix Protonix, 40 mg, By Mouth, 2 times a day, Refills 0, Maintenance, 07/19/25 3:56:00 PM EST, Supply Start Date: 07/19/25 Status: Ordered Medication Dispense Status: Completed Total [...] Refills, Maintenance, 04/23/25 4:56:00 PM EDT, Tablet, [facility]/pharmacy #[id number], Partial fill upon patient request [...] 7:33:00 AM EDT, Route to Pharmacy Electronically, [id number], 168, cm, 04/06/25 0:26:00 EDT, Height, 68.2, [...] loss Confirmed Active [facility] Social History Social History Type Response Smoking Status Never (less than 100 in lifetime); Tobacco user in household: Yes; Other: In the past ex and mother used to smoke in house.; entered on: 03/15/20 Sexual Orientation Self described orien tation: ; Straight or heterosexual Sex Sex Representation Female (finding) Patient Care team information Care Team Personnel Name: Dwayne Arenas RN Position: [facility] RN Member Role: Primary Care Nurse Name: Joan Zambrano RN Position: [facility] RN Member Role: Primary Care Nurse Name: Pilar Marques RN Position: [facility] RN Member Role: Primary Care Nurse Name: Mark Anthoyn Díaz RN Position: [facility] RN Member Role: Primary Care Nurse Name: Meliza Box RN Position: [facility] RN Member Role: Primary Care Nurse Name: Galindo Jade RN Position: [facility] RN Member Role: Primary Care Nurse Name: Eloise Sadler RN Position: [facility] RN Member Role: Primary Care Nurse Name: Delfino Franz RN Position: [facility] RN Member Role: Primary Care Nurse Name: Nessa Tom RN Position: [facility] RN Member Role: Primary Care Nurse Name: Lili Flores RN Position: [facility] RN Member Role: Primary Care Nurse Name: Gwyn Gallegos RN Position: [facility] RN Member Role: Primary Care Nurse Name: Santa Waller RN Position: [facility] RN Member Role: Primary Care Nurse Name: Yashira Arnold Position: [facility] [place] Body Builder Apprentice Member Role: High School Social Science Teacher Name: Karli Wilson RN Position: [facility] RN Member Role: Primary Care Nurse Name: Gennaro Oliver RN Position: [facility] RN Member Role: Primary Care Nurse Name: Chela Kidd RN Position: [facility] RN Member Role: Primary Care Nurse Name: Vivi Gil RN Position: [facility] RN Member Role: Primary Care Nurse Name: Josefina VALLE, Lynette Holley Position: [facility] PCO Associate Professional Member Role: PCP Address: [address] [place] [address]. [address] [place] [address]- Telecom: Name: Dionne Bhatt RN Position: [facility] RN Member Role: Primary Care Nurse Name: Monalisa Ragsdale RN Position: [facility] RN Member Role: Primary Care Nurse Name: Delmy Taveras RN Position: [facility] RN Member Role: Primary Care Nurse Name: Sonja Ng LPN Position: [facility] RN Member Role: Primary Care Nurse Care Team Related Persons Name: PARAS LAKHANI Name: BLUE BRIONES Name: CARIE SCHAEFER Insurance Providers Guarantor name: RODDY LESVIA Credible [facility] Information #: 1 Payer: [employer]NE MEDICARE ADV HMO Payer Identifier: TONY Member Number: [id number] Group Number: [id number] Subscriber Identifier: TONY Relationship to Subscriber: self Coverage Type: Medicare HMO Coverage Verification Date: Telecom: NA Address: NA
--- OUTSIDE RECORDS SUMMARY | 2025-07-29 23:59 | XMS_ITS | Continuity of Care Document ---
Author Organization [facility] Address [address] [place] [address]- Care Team Providers Care Infusion Pharmacist Name Role Phone Lynette Martinez Primary Care P jose g [place] [facility] [place] 06/29/25 - 07/29/25 [facility] [address] [place] [id number] Encounter Type: Triage Allergies, Adverse Reactions, Alerts [...] n tetanus-diphtheria toxoids (Td) 2 06/15/24 Given [id number] 12y+ bivalent booster vax 06/12/22 Recorded SARS-CoV-2 mRNA (syqzhir-puiv-zzunr) vax 11/25/21 Recorded SARS-CoV-2 (COVID-19) mRNA BNT-162b2 vac 05/12/21 Recorded SARS-CoV-2 (COVID-19) mRNA BNT-162b2 vac 10/19/20 Recorded SARS-CoV-2 (COVID-19) mRNA BNT-162b2 vac 09/28/20 Recorded pneumococcal 23-valent vaccine 3 08/04/12 Given 1Result Comment: [facility]# [id number] 2Result Comment: [facility]# [id number] 3Admin Note: administered by Aleta Medications acetaminophen [...] 9:16:00 AM EST, Route to Pharmacy Electronically, [facility]/pharmacy #[id number], Partial fill upon patient request if [...] 0 Refills, Maintenance, 06/04/25 1:10:00PM EDT, Tablet, [facility]/pharmacy #[id number], Partial fill upon patient request if [...] Refills, Maintenance, 04/23/25 4:56:00 PM EDT, Tablet, [facility]/pharmacy #[id number], Partial fill upon patient request if [...] 7:33:00 AM EDT, Route to Pharmacy Electronically, [facility]ORE [id number], 168, cm, 04/06/25 0:26:00 EDT, Height, 68.2, [...] loss Confirmed Active [facility] Social History Social History Type Response Smoking Status Never (less than 100 in lifetime); Tobacco user in household: Yes; Other: In the past ex and mother used to smoke in house.; entered on: 03/15/20 Sexual Orientation Self described orien tation: ; Straight or heterosexual Sex Sex Representation Female (finding) Patient Care team information Care Team Personnel Name: Dwayne Arenas RN Position: [facility] RN Member Role: Primary Care Nurse Name: Joan Zambrano RN Position: [facility] RN Member Role: Primary Care Nurse Name: Pilar Marques RN Position: [facility] RN Member Role: Primary Care Nurse Name: Mark Anthony Díaz RN Position: [facility] RN Member Role: Primary Care Nurse Name: Meliza Box RN Position: [facility] RN Member Role: Primary Care Nurse Name: Galindo Jade RN Position: [facility] RN Member Role: Primary Care Nurse Name: Eloise Sadler RN Position: [facility] RN Member Role: Primary Care Nurse Name: Delfino Franz RN Position: [facility] RN Member Role: Primary Care Nurse Name: Nessa Tom RN Position: [facility] RN Member Role: Primary Care Nurse Name: Lili Flores RN Position: [facility] RN Member Role: Primary Care Nurse Name: Gwyn Gallegos RN Position: [facility] RN Member Role: Primary Care Nurse Name: Santa Waller RN Position: [facility] RN Member Role: Primary Care Nurse Name: Yashira Arnold Position: [facility] [place] Maxillofacial Pathology Member Role: Fire Fighters Dispatcher Name: Karli Wilson RN Position: [facility] RN Member Role: Primary Care Nurse Name: Gennaro Oliver RN Position: [facility] SN RN Member Role: Primary Care Nurse Name: Chela Kidd RN Position: [facility] RN Member Role: Primary Care Nurse Name: Vivi Gil RN Position: [facility] RN Member Role: Primary Care Nurse Name: Lynette Martinez Position: [facility] PCO Associate Professional Member Role: PCP Address: [address] [address]. [address] [place] [address]- Telecom: Name: Dionne Bhatt RN Position: [facility] RN Member Role: Primary Care Nurse Name: Monalisa Ragsdale RN Position: [facility] RN Member Role: Primary Care Nurse Name: Delmy Taveras RN Position: [facility] RN Member Role: Primary Care Nurse Name: Sonja Ng LPN Position: [facility] RN Member Role: Primary Care Nurse Care Team Related Persons Name: PARAS LAKHANI Name: BLUE BRIONES Name: CARIE SCHAEFER Insurance Providers Guarantor name: RODDY PETTYCOCK Svbtle Plan Information #: 1 Payer: [employer]NE MEDICARE ADV HMO Payer Identifier: NA Member Number: [id number] Group Number: [id number] Subscriber Identifier: NA Relationship to Subscriber: self Coverage Type: Medicare HMO Coverage Verification Date: Telecom: NA Address: NA
--- OUTSIDE RECORDS SUMMARY | 2025-07-29 23:59 | XMS_ITS | Continuity of Care Document ---
Author Organization [facility] Adult Address [address] [place] [address]- Care Team Providers Care Safety Risk Lead Name Role Phone Lynette Martinez Primary Care P jose g Encounter [facility] Date(s): 06/29/25 - 07/29/[address] [address]- Encounter Type: Triage Allergies, Adverse Reactions, Alerts [...] n tetanus-diphtheria toxoids (Td) 2 06/15/24 Given [id number]-[id number] 12y+ bivalent booster vax 06/12/22 Recorded SARS-CoV-2 mRNA (lgjiyqm-qqic-hpoih) vax 11/25/21 Recorded SARS-CoV-2 (COVID-19) mRNA BNT-162b2 vac 05/12/21 Recorded SARS-CoV-2 (COVID-19) mRNA BNT-162b2 vac 10/19/20 Recorded SARS-CoV-2 (COVID-19) mRNA BNT-162b2 vac 09/28/20 Recorded pneumococcal 23-valent vaccine 3 08/04/12 Given 1Result Comment: [facility]# [id number] 2Result Comment: [facility]# [id number] 3Admin Note: administered by Aleta Medications acetaminophen [...] 9:16:00 AM EST, Route to Pharmacy Electronically, [facility]/pharmacy #[id number], Partial fill upon patient [...] 0 Refills, Maintenance, 06/04/25 1:10:00PM EDT, Tablet, [facility]/pharmacy #[id number], Partial fill upon patient [...] Refills, Maintenance, 04/23/25 4:56:00 PM EDT, Tablet, [facility]/pharmacy #[id number], Partial fill upon patient [...] 7:33:00 AM EDT, Route to Pharmacy Electronically, [facility] STORE [id number], 168, cm, 04/06/25 0:26:00 EDT, Height, 68.2, [...] loss Confirmed Active 1[facility] Social History Social [...] Team Personnel Name: Dwayne Arenas RN Position: [facility] RN Member Role: Primary Care Nurse Name: Joan Zambrano RN Position: [facility] RN Member Role: Primary Care Nurse Name: Pilar Marques RN Position: [facility] RN Member Role: Primary Care Nurse Name: Mark Anthony Díaz RN Position: [facility] RN Member Role: Primary Care Nurse Name: Meliza Box RN Position: [facility] RN Member Role: Primary Care Nurse Name: Galindo Jade RN Position: [facility] RN Member Role: Primary Care Nurse Name: Eloise Sadler RN Position: [facility] RN Member Role: Primary Care Nurse Name: Delfino Franz RN Position: [facility] RN Member Role: Primary Care Nurse Name: Nessa Tom RN Position: [facility] RN Member Role: Primary Care Nurse Name: Lili Flores RN Position: [facility] RN Member Role: Primary Care Nurse Name: Gwyn Gallegos RN Position: [facility] RN Member Role: Primary Care Nurse Name: Santa Waller RN Position: [facility] RN Member Role: Primary Care Nurse Name: Yashira Arnold Position: [facility] [place] Wood Chopper Member Role: Sketcher Name: Karli Wilson RN Position: [facility] RN Member Role: Primary Care Nurse Name: Gennaro Oliver RN Position: [facility] RN Member Role: Primary Care Nurse Name: Chela Kidd RN Position: [facility] RN Member Role: Primary Care Nurse Name: Vivi Gil RN Position: [facility] RN Member Role: Primary Care Nurse Name: Josefina VALLE, Lynette Holley Position: [facility] PCO Associate Professional Member Role: PCP Address: [address] [place] [address]. [address] [place] [address]- Telecom: Name: Dionne Bhatt RN Position: [facility] RN Member Role: Primary Care Nurse Name: Monalisa Ragsdale RN Position: [facility] RN Member Role: Primary Care Nurse Name: Delmy Taveras RN Position: [facility] RN Member Role: Primary Care Nurse Name: Sonja Ng LPN Position: [facility] RN Member Role: Primary Care Nurse Care Team Related Persons Name: PARAS LAKHANI Name: BLUE BRIONES Name: CARIE SCHAEFER Insurance Providers Guarantor name: RODDY LESVIA [facility] Information #: 1 Payer: [employer] HMO Payer Identifier: TONY Member Number: [id number] Group Number: [id number] Subscriber Identifier: TONY Relationship to Subscriber: self Coverage Type: Medicare HMO Coverage Verification Date: Telecom: NA Address: NA
--- OUTSIDE RECORDS SUMMARY | 2025-08-01 07:12 | XMS_ITS | Patient Health Record ---
Author Organization [facility] Address [address] [place] [id number] Care Team Providers Care Corn Crop Supervisor Name Role Phone Hua HORN, Aleta Primary Care Provider J Luis Mehta Jr Unavailable [phone] Allergies Allergen (clinical drug ingredient) Drug/Non Drug [...] Status Risk Notes Problem Colon cancer screening (094725426) Colon cancer screening (Z12.11) Active confirmed Problem Rectal bleeding (33940498) Rectal bleeding (K62.5) Active confirmed Problem Primary biliary cirrhosis (79328987) Primary biliary cirrhosis (K74.3) Active confirmed Problem Abnormal findings diagnostic imaging of liver and biliary tract (975449441) Abnormal x-ray of liver (R93.2) Active confirmed Problem Biliary cirrhosis (5804217) Biliary cirrhosis (K74.5) Active confirmed Plan Of [...] Insured Coverage Start Date Coverage End Date [facility] [address] [place] [phone] [id number] RODDY LAKHANI Self - patient is the [...]
--- OUTSIDE RECORDS SUMMARY | 2025-08-01 07:12 | XMS_ITS | Clinical Summary ---
Author Organization [facility] Prior to 01/13/[address] [place] [id number] Care Team Providers Care Sample Box Maker Name Role Phone Unavailable Primary Care Provider Unavailabl e Social History Tobacco Use Types Packs/Day Years Used Date Smoking Tobacco: Never Assessed Sex and Gender Information Value Date Recorded Sex Assigned at Not on file Gender Identity Not on file Sexual Orientation Not on file Plan of Treatment Not on file
[2025-08-01 08:26] LABS: Anion Gap 13 (12-20); Blood Urea Nitrogen 29 mg/dL (9-16); Calcium 8.6 mg/dL (8.4-10.2); Carbon Dioxide 23 mmol/L (22-29); Chloride 109 mmol/L (96-108); Estimated Glomerular Filt Rate 29; Potassium 4.4 mmol/L (3.3-5.1); Sodium 141 mmol/L (135-145)
== END 2025-08-01 07:08 ==
LOC: HO.MMNH2L 07:07
PROVIDERS: Visit Provider Physician Assistant Medical
DX: I50.33 Acute on chronic diastolic (congestive) heart failure (principal); I48.0 Paroxysmal atrial fibrillation; F10.90 Alcohol use, unspecified, uncomplicated
CPT/HCPCS: 36415; 80048